=== PATIENT | male | born 1960 | race Caucasian/White ===

== ENCOUNTER 2020-11-24 08:23 | Emergency (ER) | payer BC, SELFPAY ==
[2020-11-24 09:06] VITALS: BP 132/86; PULSE 66; RESP 16; TEMP 36.7; O2SAT 97; BMI 24.4
--- NOTE | 2020-11-24 09:29 | ED_ITS ---
HPI - Back Pain/Injury General Chief Complaint: Back Pain/Injury Stated Complaint: BACK INJURY Time Seen by Provider: 11/24/20 09:06 History of Present Illness HPI Narrative: Patient is a 60-year-old male who presents here having back pain. The pain is sharp in nature shoots down the left leg. Worse over the great and 2nd toe. Patient has similar back pain in the past. But the pain is getting worse. Patient has some numbness in the toe as well. Patient claimed that is new in the last week and a half. No bowel urinary incontinence. No fever no chills. No history of IV drug use. The pain is sharp worse with certain movements. He is able to ambulate. Related Data Previous Rx's Medication Instructions Recorded ibuprofen 400 mg PO Q6H PRN #20 tab 11/24/20 methylprednisolone [Medrol (Mani)] 4 mg PO PER PKG DIR #21 ea 11/24/20 Allergies Allergy/AdvReac Type Severity Reaction Status Date / Time aspirin [Aspirin] Allergy Intermediate HIVES Unverified 07/25/20 15:39 From Percodan Allergy Intermediate HIVES Uncoded 07/25/20 15:39 Aspirin Allergy Unknown Uncoded 12/11/11 00:00 Review of Systems Review of Systems: Constitutional: No Weight loss, No Fever, No Chills, No Night Sweats, No Fatigue, No Malaise ENT/Mouth: No Hearing loss, No Ear Pain, No Nasal Congestion, No Sinus Pain, No Hoarseness, No sore throat, No Rhinorrhea, No Swallowing Difficulty Eyes: No Eye Pain, No Swelling, No Redness, No Foreign Body, No Discharge, No Vision Changes Cardiovascular: No Chest Pain, No SOB, No Dyspnea on Exertion, No Orthopnea, No Edema, No Palpitations Respiratory: No Cough, No Sputum, No Wheezing, No Smoke Exposure, No Dyspnea Gastrointestinal: No Nausea, No Vomiting, No Diarrhea, No Constipation, No abdominal Pain, No Hematochezia, No Melena Genitourinary: no irregular bleeding, No Dysuria, No Urinary Frequency, No Hematuria, No Urinary Incontinence, No Urgency, No Flank Pain, No Urinary Flow Changes, No Hesitancy Musculoskeletal: No joint pain, No Myalgias, No Joint Swelling Skin: No Skin Lesions, No rash Neuro: No Weakness, No Numbness, No Paresthesias, No Loss of Consciousness, No Dizziness, No Headache Psych: No Anxiety/Panic, No Depression, No SI/HI/AH/VH, No Social Issues, Heme/Lymph: No Bruising, No Bleeding,No Lymphadenopathy Endocrine: No Polyuria, No Polydipsia, No Temperature Intolerance [facility] Past Medical History Medical History (Updated 11/24/20 @ 11:28 by Nara Hendrix MD) Sciatica Surgical History H/O right knee surgery Social History Social History Alcohol intake: current Alcohol intake frequency: 3 or more drinks per day Alcohol type: beer Smoked in Last 30 Days: No Use of substances other than those prescribed or required for medical reasons: Yes Substance Use Type: Marijuana Substance Use Frequency: Daily Last Used Substance: Days (ago) Advance Directives: No Advance Directives Information Provided: Yes Physical Exam Vital Signs: Vital Signs: Last Vital Signs Temp 98.6 F 11/24/20 10:38 Pulse 65 11/24/20 10:38 Resp 14 11/24/20 10:38 BP 158/95 H 11/24/20 10:38 Pulse Ox 97 11/24/20 10:38 Body Mass Index 24.4 Appearance: Alert. Oriented X3. No acute distress. Eyes: Pupils equal, round and reactive to light. ENT: Pharynx normal. Neck: Normal inspection. Neck supple. No lymph nodes noted. No crepitus CVS: Normal heart rate and rhythm. Pulses normal. Normal S1 and S2 Respiratory: No respiratory distress. Breath sounds normal. No Wheezing. No rales Abdomen: Soft and nontender. No rigidity. No distention. good BS x4 Skin: Skin warm and dry. Normal skin color. Normal skin turgor. Extremities: No lower extremity edema. Neurovascular intact to all extremities. No Lacerations. No Rash Neuro: Oriented X 3. No motor deficit. No sensory deficit. Moving all extermities. No slurred speech Examination of the lower extremity there is good sensation of bilateral lower extremity. Reflexes are 2+ at patella. Pulses 2+ at dorsalis pedis. Sensation over the great toe over the lateral aspect and over the sole of the feet are all intact on both sides. Patient is able to ambulate with normal gait. Skins are intact. MDM - Back Pain/Injury MDM Narrative Medical decision making narrative: Patient well-appearing not acute distress. No bowel urinary incontinence. Patient has pain radiating down to the great toe. Can move the toe but feels tingling. Pain improved with medication. Will have patient follow-up on an outpatient basis. No evidence for cauda equina. Likely sciatica Lab Data Result diagrams: 11/24/20 10:03 11/24/20 10:03 Labs: Lab Results 11/24/20 11/24/20 Range/Units 10:03 10:03 WBC 5.9 (4.8-10.8) X10*3/uL RBC 5.03 (4.60-5.80) X10*6/uL Hgb 15.7 (14.0-18.0) g/dl Hct 46.8 (42-52) % MCV 93.0 (80-98) fL MCH 31.2 (27.0-33.0) pg MCHC 33.5 (31.0-36.0) g/dl RDW 12.0 (11.0-16.0) % Plt Count 257 (160-400) X10*3/uL MPV 8.5 L (9.4-12.4) fL Immature Gran % (Auto) 0.5 H (0.0-0.4) % Neut % (Auto) 62.6 (45-73) % Lymph % (Auto) 24.9 (20-40) % Banks % (Auto) 8.2 (2-11) % Eos % (Auto) 2.4 (0-4) % Baso % (Auto) 1.4 (0-2) % Lymph # (Auto) 1.5 (1.2-4.9) X10*3/uL Banks # (Auto) 0.5 (0.1-1.2) X10*3/uL Eos # (Auto) 0.1 (0.0-0.4) X10*3/uL Baso # (Auto) 0.1 (0.0-0.2) X10*3/uL Abs Immat Gran (auto) 0.03 (0.00-0.03) X10*3/uL Absolute Neuts (auto) 3.7 (2.0-8.3) X10*3/uL Absolute Nucleated RBC 0.000 (0.0-0.012) X10*3/uL Nucleated RBC % (auto) 0.0 (0.0-0.2) /100WBC Sodium 142 (135-145) mmol/L Potassium 4.4 (3.3-5.1) mmol/l Chloride 105 (96-108) mmol/L Carbon Dioxide 24 (22-29) mmol/L Anion Gap 17 (12-20) BUN 11 (9-16) mg/dL Creatinine 0.75 (0.5-1.4) mg/dL Estim Creat Clear Calc 119.8 Estimated GFR > 60 Random Glucose 92 (60-115) mg/dL Calcium 8.9 (8.4-10.2) mg/dL Discharge Plan Discharge Clinical Impression: Sciatica Patient Disposition: Home, Self-Care Instructions: Sciatica (ED) Prescriptions: New ibuprofen 400 mg tablet 400 mg PO Q6H PRN (Reason: pain) Qty: 20 RF: 0 methylprednisolone [Medrol (Mani)] 4 mg tablets,dose pack 4 mg PO PER PKG DIR Qty: 21 RF: 0 Referrals: Kimberlee Jamison MD [Primary Care Provider] - 2 days
[2020-11-24 10:08] LABS: MANUAL DIFF FLAG NO
[2020-11-24 10:17] LABS: Basophils Absolute Auto 0.1 X10*3/uL (0.0-0.2); Basophils Percent Auto 1.4 % (0-2); Eosinophils Absolute Auto 0.1 X10*3/uL (0.0-0.4); Eosinophils Percent Auto 2.4 % (0-4); Hematocrit 46.8 % (42-52); Hemoglobin 15.7 g/dl (14.0-18.0); Imm Gran Abs Auto 0.03 X10*3/uL (0.00-0.03); Imm Gran Pct Auto 0.5 % (0.0-0.4); Lymphocytes Absolute Auto 1.5 X10*3/uL (1.2-4.9); Lymphocytes Percent Auto 24.9 % (20-40); Mean Corpuscular HGB Conc 33.5 g/dl (31.0-36.0); Mean Corpuscular Hemoglobin 31.2 pg (27.0-33.0); Mean Platelet Volume 8.5 fL (9.4-12.4); Monocytes Absolute Auto 0.5 X10*3/uL (0.1-1.2); Monocytes Percent Auto 8.2 % (2-11); Neutrophils Absolute Auto 3.7 X10*3/uL (2.0-8.3); Neutrophils Percent Auto 62.6 % (45-73); Platelet Count 257 X10*3/uL (160-400); Red Blood Count 5.03 X10*6/uL (4.60-5.80); White Blood Count 5.9 X10*3/uL (4.8-10.8)
[2020-11-24] MEDS: ondansetron HCL 4 MG/2 ML VIAL IVPUSH (10:17)
[2020-11-24] MEDS: Ketorolac Tromethamine 15 MG/ML VIAL IV (10:19)
[2020-11-24] MEDS: HYDROmorphone HCl 0.5 MG/0.5 ML SYRINGE IVPUSH (10:21)
--- NOTE | 2020-11-24 10:25 | PC.NURSE ---
continues to c/o nausea, dr lawson updatede, medicated as ordered, pt now reports no longer nauseaous
[2020-11-24 10:38] VITALS: BP 158/95; PULSE 65; RESP 14; TEMP 37; O2SAT 97
[2020-11-24 10:39] LABS: Anion Gap 17 (12-20); Blood Urea Nitrogen 11 mg/dL (9-16); Calcium 8.9 mg/dL (8.4-10.2); Carbon Dioxide 24 mmol/L (22-29); Chloride 105 mmol/L (96-108); Creatinine Clr Calc Pharmacy 119.8; Estimated Glomerular Filt Rate > 60; Glucose Random 92 mg/dL (60-115); Potassium 4.4 mmol/l (3.3-5.1); Sodium 142 mmol/L (135-145)
--- NOTE | 2020-11-24 11:40 | PC.NURSE ---
patient calling for ride home, iv removed
== END 2020-11-24 11:58 | disposition home or self-care (01) ==
PROVIDERS: Emergency Provider Emergency Medicine Emergency Medical Services; PCP Internal Medicine
DX: M54.42 Lumbago with sciatica, left side (principal); M54.41 Lumbago with sciatica, right side; M79.605 Pain in left leg; Z79.899 Other long term (current) drug therapy
CPT/HCPCS: 36415; 80048; 85025; 96374; 96375; 99284; J1100; J1170; J1885; J2405

== ENCOUNTER 2022-11-20 09:28 | Emergency (ER) | payer BC, SELFPAY ==
--- NOTE | ~2022-11-20 | XR_ITS ---
EXAMINATION: XR SCAPULA, LEFT CLINICAL INFORMATION: Glenoid fracture. Assess for other injuries. COMPARISON: Left shoulder x-rays, the same day TECHNIQUE: AP and scapular Y views of the left scapula. FINDINGS: Again seen is irregularity of the inferior aspect of the glenoid consistent with a fracture. The body of the scapula is intact. The left glenohumeral and acromioclavicular joints are intact. Visualized left lung and ribs are normal. XR/XR scapula LT IMPRESSION: Inferior glenoid fracture again seen. The remainder of the body of the scapula appears intact.
--- NOTE | ~2022-11-20 | XR_ITS ---
EXAMINATION: XR SHOULDER, LEFT CLINICAL INFORMATION: Pain status post injury COMPARISON: 02/12/2013 TECHNIQUE: AP external rotation, Grashey, scapular Y, and axillary views of the left shoulder. FINDINGS: There is new abnormal irregularity of the inferior aspect of the left glenoid. Left clavicle intact. Left humerus intact. Visualized left lung and ribs are normal. XR/XR shoulder LT min 2V IMPRESSION: New abnormal irregularity of the left inferior glenoid consistent with an age indeterminate inferior glenoid fracture. No acute fracture of the visualized left proximal humerus.
--- NOTE | 2022-11-20 09:52 | ED_ITS ---
HPI - Extremity Injury (Upper) General Chief Complaint: Fall Stated Complaint: L Shoulder Pain Injury 11/19/22 Time Seen by Provider: 11/20/22 09:37 Source: patient Mode of arrival: ambulatory Limitations: no limitations History of Present Illness HPI narrative: 62-year-old male presents to the ER for evaluation of left shoulder pain after a mechanical fall last night. Patient states he was in his living room any tripped over the TV tray and fell onto his left shoulder. He has had pain and inability to abduct his left arm since. He did not sleep well last night due to the pain. He thinks he broke his shoulder. He reports a history of rotator cuff issues in the past. He states the pain is located on his outer and posterior portion of the shoulder. Pain does not radiate. It is worse with movement of the shoulder. He is able to move the elbow and wrist fine. Denies any numbness, weakness, tingling. No chest pain. MD complaint: injury to: left and shoulder Onset (ago): day(s) (1) Other Extremity Injury: left: shoulder Other injuries: none Place: home Severity: severe Severity scale (1-10): 9 Relieving factors: immobilization and rest Exacerbating factors: movement of extremity Context: fall Associated symptoms: denies other symptoms Related Data Previous Rx's Medication Instructions Recorded ibuprofen 400 mg tablet 400 mg PO Q6H PRN pain #20 tabs 11/24/20 methylprednisolone 4 mg tablets in 4 mg PO PER PKG DIR #21 ea 11/24/20 a dose pack (Medrol (Mani)) ibuprofen 600 mg tablet 600 mg PO Q8H PRN pain #20 tabs 11/20/22 Allergies Allergy/AdvReac Type Severity Reaction Status Date / Time aspirin [Aspirin] Allergy Intermediate HIVES Unverified 07/25/20 15:39 From Percodan Allergy Intermediate HIVES Uncoded 07/25/20 15:39 Aspirin Allergy Unknown Uncoded 12/11/11 00:00 Review of Systems Review of Systems: Yes all other systems are reviewed and are negative [facility] Past Medical History Medical History (Updated 11/20/22 @ 11:36 by JOSIANE Estrada) Sciatica Surgical History H/O right knee surgery Social History Social History Alcohol intake: current Alcohol intake frequency: 3 or more drinks per day Alcohol type: beer Substance Use Type: Marijuana Advance Directives: No Advance Directives Information Provided: No Physical Exam Vital Signs: Vital Signs: Last Vital Signs Temp 98.4 F 11/20/22 10:12 Pulse 72 11/20/22 10:12 Resp 14 11/20/22 10:12 BP 164/101 H 11/20/22 10:12 Pulse Ox 97 11/20/22 10:12 O2 Del Method 11/20/22 10:12 BMI result Body Mass Index 24.4 Appearance: Alert. Oriented X3. No acute distress. HEENT: normal inspection CVS: Normal heart rate and rhythm. Pulses normal. Respiratory: No respiratory distress. Skin: Skin warm and dry. Normal skin color. Normal skin turgor. No rashes. Extremities: Left arm held in flexion and adduction. Left shoulder with tenderness over the acromion, superior and lateral portion of the scapula. Limited ability to abduct the left arm forward and laterally due to pain. Normal range of motion of the elbow. Normal range of motion of the wrist. Nontender elbow when wrist. 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 No tenderness of the left clavicle. Neuro: Oriented X 3. No motor deficit. No sensory deficit. Course Course Course Narrative: 62-year-old male presents to the ER for evaluation of left shoulder pain status post fall. X-rays pending. Neurovascularly intact distally. Reevaluation(s) Reevaluation #1: XR showing New abnormal irregularity of the left inferior glenoid consistent wit h an age indeterminate inferior glenoid fracture. Dedicated scapular x-rays ordered. Doubt any intrathoracic injuries given mechanism. Hold off on CT scan of the chest for now. Case discussed with Dr. Morales Reevaluation #2: X-ray of the scapular showing again inferior glenoid fracture. No other scapular involvement. Mildred from Orthopedics was [place] texted, recommend immobilization with sling, follow-up in the office. Results and plan were discussed with patient. He will call Orthopedics office today to arrange outpatient follow-up. Stable for discharge home. Medical Decision Making Differential Diagnosis Differential Diagnoses: The differential diagnosis associated with the presentation includes clavicular fracture, rib fracture, scapular body fracture, scapular process fracture, dislocation, shoulder separation, and rotator cuff injury Consult Healthcare Provider Orthopedic YOEL Levy Independent Interpretation I performed an independent interpretation of an: Plain X-Ray Interpretation: inferior glenoid fx seen Radiology Impression Discussion of test interpretation with radiology: I have reviewed the radiologist's reading. Radiologist Impression: Shoulder XR - FINDINGS: There is new abnormal irregularity of the inferior aspect of the left glenoid. Left clavicle intact. Left humerus intact. Visualized left lung and ribs are normal.? XR/XR shoulder LT min 2V IMPRESSION: New abnormal irregularity of the left inferior glenoid consistent with an age indeterminate inferior glenoid fracture. No acute fracture of the visualized left proximal humerus. Scapular XR: FINDINGS: Again seen is irregularity of the inferior aspect of the glenoid consistent with a fracture. The body of the scapula is intact. The left glenohumeral and acromioclavicular joints are intact. Visualized left lung and ribs are normal.? XR/XR scapula LT IMPRESSION: Inferior glenoid fracture again seen. The remainder of the body of the scapula appears intact. Prescription Management I considered prescription management with: Pain Medication NSAID only for now, patient agrees, does not want narcotics Critical Care Time Critical Care Time Critical Care Time: No Discharge Plan Discharge Clinical Impression: Glenoid fracture of shoulder Patient Disposition: Home, Self-Care Instructions: Scapular Fracture (ED) Additional Instructions: Your x-ray today showed a inferior glenoid fracture. Management for this is immobilization with a sling. Wear this at all times except when bathing. You will need to be evaluated by Orthopedics. Call their office for an appointment. Prescriptions: New ibuprofen 600 mg tablet 600 mg PO Q8H PRN (Reason: pain) Qty: 20 0RF No Action ibuprofen 400 mg tablet 400 mg PO Q6H PRN (Reason: pain) Qty: 20 0RF methylprednisolone [Medrol (Mani)] 4 mg tablets,dose pack 4 mg PO PER PKG DIR Qty: 21 0RF Rx Instructions: One blister pack use as directed Referrals: [facility] [Provider Group] Stand Alone Forms: Work/School Release Interventions: ED Discharge Assessment Last Done: 11/20/22 11:41
[2022-11-20 10:12] VITALS: BP 164/101; PULSE 72; RESP 14; TEMP 36.9; O2SAT 97; BMI 24.4
== END 2022-11-20 11:46 | disposition home or self-care (01) ==
PROVIDERS: Emergency Provider Emergency Medicine
DX: S42.92XA Fracture of left shoulder girdle, part unspecified, initial encounter for closed fracture (principal); M25.512 Pain in left shoulder; W01.0XXA Fall on same level from slipping, tripping and stumbling without subsequent striking against object, initial encounter; Y93.9 Activity, unspecified; Y92.9 Unspecified place or not applicable; Y99.9 Unspecified external cause status; Z79.899 Other long term (current) drug therapy
CPT/HCPCS: 73010; 73030; 99283

== ENCOUNTER 2022-11-30 08:00 | Outpatient (REF) | payer BC, SELFPAY ==
--- NOTE | ~2022-11-30 | XR_ITS ---
EXAMINATION: XR wrist LT w scaphoid CLINICAL INFORMATION: Reason for Exam M25.532 - Pain in left wrist COMPARISON: None. TECHNIQUE: 4 views of the left wrist XR/XR wrist LT w scaphoid FINDINGS/IMPRESSION: * No acute fracture or dislocation. * Joint spaces are maintained without significant degenerative change. * No soft tissue abnormality.
--- NOTE | ~2022-11-30 | XR_ITS ---
EXAMINATION: XR SCAPULA, LEFT CLINICAL INFORMATION: Fracture COMPARISON: 11/20/2022 TECHNIQUE: AP and scapular Y views of the left scapula. FINDINGS: Redemonstration of fracture of the inferior aspect of the glenoid fossa. Body of the scapula appears intact. Visualized lungs and ribs are normal. XR/XR scapula LT IMPRESSION: Redemonstration of fracture of the inferior glenoid fossa.
== END 2022-11-30 08:01 | disposition home or self-care (01) ==
LOC: HO.HOSX 08:00
PROVIDERS: Visit Provider Physician Assistant
DX: S42.143A Displaced fracture of glenoid cavity of scapula, unspecified shoulder, initial encounter for closed fracture (principal); S42.153A Displaced fracture of neck of scapula, unspecified shoulder, initial encounter for closed fracture; M25.532 Pain in left wrist
CPT/HCPCS: 73010; 73110

== ENCOUNTER 2022-12-15 07:22 | Outpatient (REF) | payer BC, SELFPAY ==
--- NOTE | ~2022-12-15 | CT_ITS ---
EXAMINATION: CT SHOULDER WITHOUT CONTRAST, LEFT CLINICAL INFORMATION: Glenoid cavity of scapular fracture. COMPARISON: Multiple priors, most recent left scapular radiographs dated 11/30/2022. TECHNIQUE: Contiguous axial CT images of the left shoulder were obtained without contrast. Sagittal and coronal reformats were provided and reviewed. This CT examination was performed using dose optimization techniques as appropriate, variously including the following: *Automated exposure control *Adjustment of mA and/or kV according to patient size (this includes techniques or standardized protocols for targeted exams where dose is matched to indication/reason for exam; i.e. extremities or head) *Use of iterative reconstruction technique. DOSE: 303 mGy-cm FINDINGS: There is a mildly displaced fracture along the anteroinferior and inferior glenoid with the dominant fracture fragment measuring up to 2.6 cm in AP dimension. There are tiny fracture fragments along the periphery of the fracture line. The resultant fracture gap which contacts the glenoid articular surface measures up to 0.5 cm with cortical step-off/medial displacement of the distal fracture fragment measuring up to 0.3 cm. No additional fracture or dislocation. Humeral head currently well seated within the glenoid. [id number] glenohumeral joint space narrowing with tiny marginal osteophytes. Degenerative cystic change at the superior aspect of the humeral head/greater tuberosity. No concerning lytic or blastic osseous lesion. Partially visualized degenerative disc disease and facet arthropathy within the cervical spine. Moderate left shoulder joint effusion. No abnormal soft tissue mass or fluid collection. No axillary lymphadenopathy. Evaluation of the rotator cuff tendons is significantly limited on CT examination, however, they appear grossly intact. The visualized left lung is clear. CT/CT shoulder LT wo IV con IMPRESSION: 1. Mildly displaced fracture along the anteroinferior and inferior glenoid with the dominant fracture fragment measuring up to 2.6 cm in AP dimension. Tiny fracture fragments along the periphery of the fracture line. The resultant fracture gap which contacts the glenoid articular surface measures up to 0.5 cm with cortical step-off/medial displacement of the distal fracture fragment measuring up to 0.3 cm. 2. [id number] glenohumeral osteoarthritis. Moderate joint effusion. 3. Partially visualized degenerative disc disease and facet arthropathy within the cervical spine.
== END 2022-12-15 07:23 | disposition home or self-care (01) ==
LOC: HO.CT 07:22
PROVIDERS: Visit Provider Physician Assistant
DX: S42.143A Displaced fracture of glenoid cavity of scapula, unspecified shoulder, initial encounter for closed fracture (principal); S42.153A Displaced fracture of neck of scapula, unspecified shoulder, initial encounter for closed fracture
CPT/HCPCS: 73200

== ENCOUNTER → 2022-12-24 10:25 | Outpatient (BNVA) | payer BC, SELFPAY | PROVIDERS: Visit Provider Physician Assistant | DX: Z13.89 Encounter for screening for other disorder (principal) ==

== ENCOUNTER 2023-01-19 11:41 | Day surgery (SDC) | payer BC, SELFPAY ==
--- NOTE | 2023-01-18 10:06 | P.CONAN_ITS ---
Documented by User: Graciela Bryant NP 01/18/23 10:07 HPI - Anesthesia Eval Consult details Narrative: 63yo M for Left ORIF Shoulder,later jet PMFSH Active Problems Active Problems: All Active Problems (Updated 01/07/23 @ 14:23 by Dione Tran RN) Glenoid fracture of shoulder (Acute) CMC arthritis (Acute) Sciatica (Acute) Past Medical History Medical History (Updated 01/07/23 @ 14:23 by Dione Tran RN) Daily consumption of alcohol No pertinent past medical history Sciatica Surgical History Surgical History (Updated 01/07/23 @ 14:21 by Dione Tran RN) H/O right knee surgery History of umbilical hernia repair Social History Social History Are you a primary administrator health care facility to a significant other at home: No Do you presently have visiting nurse or other home services: No Alcohol intake: current Alcohol intake frequency: 3 or more drinks per day Alcohol type: beer Patient Tobacco Use Status: Former Tobacco user Quit Date: Age 20 Tobacco use type: Cigarette Use of substances other than those prescribed or required for medical reasons: Yes Substance Use Type: Marijuana Substance Use Frequency: Occasionally Have you been hit, kicked, punched, or otherwise hurt by someone within the past year? 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 Functional status greater than 4 mets . Intermittent PVC in the pre op but patient completely asymtomatic Drinks ETOH , 2-3 beers everyday PMFSH Past Medical History Medical History (Updated 01/07/23 @ 14:23 by Dione Tran, RN) Daily consumption of alcohol No pertinent past medical history Sciatica Functional capacity: independent ambulation Family History Family history of problems with anesthesia: No Surgical History Surgical History (Updated 01/07/23 @ 14:21 by Dione Tran RN) H/O right knee surgery History of umbilical hernia repair History of Problems with Anesthesia: No Social History Social History Are you a primary administrator health care facility to a significant other at home: No Do you presently have visiting nurse or other home services: No Alcohol intake: current Alcohol intake frequency: 3 or more drinks per day Alcohol type: beer Patient Tobacco Use Status: Former Tobacco user Quit Date: Age 20 Tobacco use type: Cigarette Use of substances other than those prescribed or required for medical reasons: Yes Substance Use Type: Marijuana Substance Use Frequency: Occasionally Have you been hit, kicked, punched, or otherwise hurt by someone within the past year? 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 Rate : 078 BPM ? ? Atrial Rate : 078 BPM ?? P-R Int : 158 ms? QRS Dur : 084 ms ? ? QT Int : 364 ms ? ? ? P-R-T Axes : 045 022 034 degrees ?? QTc Int : 414 ms ? Normal sinus rhythm Normal ECG No previous ECGs available Airway Mallampati Class: III TM Dist: >3cm Neck ROM: Full Loose/Missing/Broken Teeth: Yes Heart: S1,S2 Lungs: s/l breath sounds Assessment and Plan Assessment Anesthesia Assessment: Anesthesia Plan Discussed Final Anesthetic Review Family History of Problems with Anesthesia: No History of Problems with Anesthesia: No NPO: Yes ASA Class: III Final Preanesthetic Review: Meds/Allgs Chart Reviewed, Consent Obtained/Reviewed and Anes Risks/Benef Reviewed Patient Risk: Intermediate Procedure Risk: Intermediate Anesthetic Plan Anesthetic Plan: GA and Regional Block Disposition: Standard PACU
[2023-01-19] VITALS (7 sets, daily range): BP systolic 142–170; BP diastolic 90–97; PULSE 67–78; RESP 15–18; TEMP 36.2–37; O2SAT 96–98; BMI 24.4
--- NOTE | 2023-01-19 | ECG_ITS ---
Test Reason : PRE OP Blood Pressure : / mmHG Vent. Rate : 078 BPM Atrial Rate : 078 BPM P-R Int : 158 ms QRS Dur : 084 ms QT Int : 364 ms P-R-T Axes : 045 022 034 degrees QTc Int : 414 ms Normal sinus rhythm Normal ECG No previous ECGs available Referred By: Graciela Bryant Electronically Signed By:Allan Lezama
[2023-01-19 12:50] LABS: Hematocrit 46.9 % (42.0-52.0); Mean Corpuscular HGB Conc 34.1 g/dl (31.0-36.0); Mean Corpuscular Hemoglobin 31.4 pg (27.0-33.0); Mean Platelet Volume 8.7 fL (9.4-12.4); Platelet Count 229 X10*3/uL (160-400); Red Cell Distribution Width 12.6 % (11.0-16.0); White Blood Count 6.9 X10*3/uL (4.8-10.8)
[2023-01-19] MEDS: Lactated Ringers 1,000 ML 100 ML IVCONT (13:00)
--- NOTE | 2023-01-19 13:02 | PC.NURSE ---
reported to Dr. Shine Anesthesoilogist periods of quadrageminy, pt denies chest pain, sob, light headedness or sob/palpitations.. 12 lead ekg (ordered upon arrival) nsr. Pt noted to state extreme anxiety/restless legs syndrome evident with frequent leg movements. anxiety settled after IV completion without incident, first stick.
[2023-01-19 13:07] LABS: Anion Gap 13 (12-20); Blood Urea Nitrogen 10 mg/dL (9-16); Calcium 8.9 mg/dL (8.4-10.2); Carbon Dioxide 27 mmol/L (22-29); Chloride 106 mmol/L (96-108); Creatinine Clr Calc Pharmacy 106.4; Estimated Glomerular Filt Rate > 60; Glucose Fasting 115 mg/dL (60-99); Potassium 4.1 mmol/L (3.3-5.1); Sodium 142 mmol/L (135-145)
--- NOTE | 2023-01-19 15:08 | MHC.SHP ---
Pre-Procedural Eval Section A Date of Service: 01/19/23 The patient is an INPATIENT: No Changes since office visit: No Cold of Flu in the past 2 weeks, No New Medical Problems, No Changes in Medication and No Patient answered all questions The History & Physical has been completed within 30 days and I have reviewed it.: Yes Section B Chief Complaint: Displaced fracture of glenoid cavity of scapula Allergies: Allergies Allergy/AdvReac Type Severity Reaction Status Date / Time No Known Allergies Allergy Verified 12/24/22 10:33 Plan I have reviewed the history and physical and performed a pertinent physical examination on my patient. No changes have occurred unless specified. Time Spent With Patient Time: Total time managing care of this patient today ____ minutes.
--- NOTE | 2023-01-19 18:17 | P.BOP_ITS ---
Brief Operative Note Date of Service: 01/19/23 Pre-op diagnosis: Left shoulder instability and glenoid fracture Post-op diagnosis: same Procedure: Arthroscopic bony bankhart repair with capsular plication Implants: Rhoades and Nephew Microraptor x 3 Surgeon: Adi Negron MD Anesthesia: GETA and regional Was an Pupil Personnel Services Director used for this Procedure?: Yes Pupil Personnel Services Director: Jyotsna Teresa Estimated blood loss (mL): 20 IV fluids (mL): 1,500 Pathology: none sent Condition: stable Disposition: PACU
[2023-01-19] MEDS: oxyCODONE HCl Immed Release 5 MG TABLET PO (18:31)
[2023-01-19] MEDS: fentaNYL citrate/PF 100 MCG/2 ML VIAL 25 MCG IVPUSH (18:39)
[2023-01-19 18:52] LABS: Glucose, Whole Blood 113 mg/dL (60-115)
[2023-01-19] MEDS: Ketorolac Tromethamine 30 MG/ML VIAL IVPUSH (18:57)
--- NOTE | 2023-01-22 15:33 | W.PM.OPN ---
Operative Note Operative Note Date of Service: 01/19/23 Narrative: Date of Service: 01/19/23 Pre-op diagnosis: Left shoulder instability and glenoid fracture Post-op diagnosis: same Procedure: Arthroscopic bony bankhart repair with capsular plication Implants: Rhoades and Nephew Microraptor x 3 Surgeon: Adi Negron MD Anesthesia: GETA and regional Was an And Drying Supervisor Cooking Casing used for this Procedure?: Yes And Drying Supervisor Cooking Casing: Jyotsna Teresa Estimated blood loss (mL): 20 IV fluids (mL): 1,500 Pathology: none sent Condition: stable Disposition: PACU Procedure in detail: Patient was brought to the operating room and placed the the beach chair position. All bony prominences were well padded and the limb was prepped and draped in standard sterile fashion. A time out was called to identify proper site, proper procedure and proper surgeon. IV antibiotics per weight were administered. I began by making a posterolateral stab incision with a 15 blade. A blunt trochar was placed into the glenohumeral joint and I insufflated the joint with saline and a 30 degree arthroscope was placed. I established an outside- in anterior portal just distal to the biceps tendon. I then began my inspection of the glenohumeral joint. The biceps was intact. There was G4 changes of the posterior 50 % of the HH and the anterior 50% of the glenoid. There was a partially healed glenoid rim fracture with the anterior fragment depressed and the labrum grossly intact. The subscapularis was intact and there was a PASTA lesion. I then used an arthroscopic [place] to free the torn glenoid fragment and then I used 6 suture tapes along the anterior capsule and labrum to reapproximate the anterior glenoid rim. These sutures were placed from 7 to 10 O:clock position and then broughjt to three micro-raptor anchors at the anterior glenoid rim. Prior to this I debrided the anterior rim down to bleeding bone. The construct provided an anterior bumper and there was a negative drive through sign. I debrided the labrum circumferentially and the PASTA lesion but repair was not indicated given his OA and the partial nature of the injury. I debrdied the loose cartilage of the glenoid humeral head. Once I was satisfied with the repair final images were captured and I removed all instrumentation. Portals were closed with nylon. Patient was placed in an abduction sling, extubated and brought to the recovery room in stable condition. There were no known complications.
== END 2023-01-19 19:24 | disposition home or self-care (01) ==
PROVIDERS: Nurse Practitioner; Visit Provider Orthopaedic Surgery
PROC: (CPT 29806; principal; 2023-01-19 14:20)
DX: S42.142A Displaced fracture of glenoid cavity of scapula, left shoulder, initial encounter for closed fracture (principal); S42.152A Displaced fracture of neck of scapula, left shoulder, initial encounter for closed fracture; M25.312 Other instability, left shoulder; M19.042 Primary osteoarthritis, left hand; M25.532 Pain in left wrist; W01.0XXA Fall on same level from slipping, tripping and stumbling without subsequent striking against object, initial encounter; Y93.9 Activity, unspecified; Y92.9 Unspecified place or not applicable; Y99.8 Other external cause status; G57.00 Lesion of sciatic nerve, unspecified lower limb; Z79.1 Long term (current) use of non-steroidal anti-inflammatories (NSAID); F10.10 Alcohol abuse, uncomplicated; F12.90 Cannabis use, unspecified, uncomplicated; Z87.891 Personal history of nicotine dependence
CPT/HCPCS: 29806; 36415; 80048; 82947; 85027; 93005; J0131; J0171; J0690; J1885; J2250; J2405; J2795; J3010

== ENCOUNTER → 2023-02-01 08:48 | Outpatient (BNVA) | payer BC, SELFPAY | PROVIDERS: Visit Provider Physician Assistant | DX: Z13.89 Encounter for screening for other disorder (principal) ==

== ENCOUNTER → 2023-03-03 07:58 | Outpatient (BNVA) | payer BC, SELFPAY | PROVIDERS: Visit Provider Physician Assistant | DX: Z13.89 Encounter for screening for other disorder (principal) ==

== ENCOUNTER → 2023-04-16 08:36 | Outpatient (BNVA) | payer BC, SELFPAY | PROVIDERS: Visit Provider Orthopaedic Surgery ==

== ENCOUNTER 2023-05-04 09:00 | Outpatient (RCR) | payer BC, SELFPAY ==
--- NOTE | 2023-04-16 08:10 | MHC.PT.PR ---
[facility] [place] Office [place] Office [place] Office [address] Samira Grey [address] [phone] F: [phone] F: [phone] F: [phone] F: [phone] Physical Therapy Progress Note Diagnosis: S/P SUMI BANKHART REPAIR WITH CAPSULAR PLICATION Date of Surgery: 01/18/23 Date of Evaluation: 02/01/23 Treatments to Date: 19 Cancellations to Date: 0 No Shows to Date: 0 Subjective: It still feels unstable and is painful. Pain Score and Location: 5 LEFT SHOULDER Objective Measures: 04/16 PROM shoulder flexion 107, abd 70, ER 38 AAROM flexion 102, ER 36 Assessment: Pt able to perform LUE exercises with some shakiness and weakness. He had less shakiness with supine shoulder flexion than previous visits however still will get some pain located along infraspinatus and supraspinatus. He has made gradual progress mostly limited by significant weakness and instability. He does show compliance with HEP as he demonstrates good carryover with exercises. He has a f/u with ortho today and advised pt to discuss his ongoing concerns of pain, weakness, instability with them. PT Plan: Continue with PT Frequency and Duration: The patient will be seen 2 X WEEK FOR 4 MORE WEEKS Treatment Plan: Therapeutic Exercise Dynamic Therapeutic Activities Neuromuscular Re-ed Manual Therapies Taping Home Exercise Program Patient Education Electrical Stimulation Hot or Cold Pack Reviewed/ Agreed with Student Documentation: Yes Therapist: Tanvi Wesley Thank you once again for your referral.
--- NOTE | 2023-06-15 12:59 | MHC.PT.DC ---
[facility] [place] Office [place] Office [place] Office [address] Samira Grey [address] [phone] F: [phone] F: [phone] F: [phone] F: [phone] Physical Therapy Discharge Report Diagnosis: S/P SUMI BANKHART REPAIR WITH CAPSULAR PLICATION Date of Surgery: 01/18/23 Date of Evaluation: 02/01/23 Date of Discharge: 06/15/23 Treatments to Date: Cancellations to Date: 0 No Shows to Date: 0 Discharge Status: Independent with HEP Patient Elected to Stop Recommend MD Follow-up Discharge Summary: Pt did not f/u with final visits and is therefore d/c. He continued to demonstrate poor scapular/ RTC strength resulting in poor shoulder AROM against gravity and decreased functional mobility. He was I with HEP. Pt was educated on precautions of instability and f/u with surgeon regarding continued instability and decreased strength Electronically signed by: Tanvi Wesley PT Please sign and return to therapist. Thank you for your referral.
== END 2023-06-15 12:59 | disposition home or self-care (01) ==
LOC: HO.PTCHIC 09:00
PROVIDERS: Visit Provider Physician Assistant
DX: M25.312 Other instability, left shoulder (principal)
CPT/HCPCS: 97014; 97110; 97140; 97161

== ENCOUNTER 2023-06-04 10:34 | Outpatient (AMB) | payer BC, SELFPAY ==
[2023-06-04 10:39] VITALS: BMI 23.7
--- NOTE | 2023-06-04 10:39 | A.OFFVIS_ITS ---
Intake Vital Signs 06/04/23 10:39 Height 6 ft Weight 175 lb BMI 23.7 Intake Visit Reasons: OV-s/p Lt shldr capsular plication 01/19/23 Intake Note: Warren 63 year old right hand dominant male who presents today for a follow up visit s/p Left shldr capsular plication 01/19/23. States he has D/C his sling, cont's to have ongoing pain, cont's to work with P.T. Patient would like to discuss what is the next step. Allergies No Known Allergies Allergy (Verified 06/04/23 10:41) HPI OV-s/p Lt shldr capsular plication 01/19/23 HPI Details 63-year-old right hand dominant male who returns to the office today for a follow-up of left shoulder capsular plication, 01/19/23. He continues to have ongoing pain in his shoulder and he is working with physical therapy for his pain. He states he has discontinued wearing his sling. He would like to discuss the next step in his treatment. [facility] Medical History Daily consumption of alcohol No pertinent past medical history Sciatica Surgical History H/O right knee surgery History of umbilical hernia repair Social History Are you a primary ambulatory care nurse to a significant other at home: No Do you presently have visiting nurse or other home services: No Alcohol intake: current Alcohol intake frequency: 3 or more drinks per day Alcohol type: beer Patient Tobacco Use Status: Former Tobacco user Quit Date: Age 20 Tobacco use type: Cigarette Substance Use Type: Marijuana Current occupational status: employed 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 Incision well healed. AROM FF 110. ER to 45. IR to back pocket . He has good function of elbow and wrist. He can move all of the digits. NVI. Assessment & Plan Assessment & Plan (1) Glenoid fracture of shoulder: Code(s): S42.143A - Displaced fracture of glenoid cavity of scapula, unspecified shoulder, initial encounter for closed fracture; S42.153A - Displaced fracture of neck of scapula, unspecified shoulder, initial encounter for closed fracture (2) Instability of left shoulder joint: Code(s): M25.312 - Other instability, left shoulder Plan We had a discussion about the potential next step in his treatment if he continues to have discomfort and limitations with activities or continued instability which would be TSA. I did explain that this is reserved for patient who have severe limitations in their functional capacity and also pain. The patient states that he is able to perform activity with minimal pain and he is no longer feeling the sensation of instability. He will continue working on his physical therapy exercises to maintain his motion and regain some more strength. He will remain out of work till we see him back in [address] Negron, sooner if needed. Patient Instructions: Scribed for Jyotsna Teresa PA-C, by Easton Giordano biomedical engineering director, on 06/04/2023 at 10:15 AM ELVIN. Jyotsna Ansari PA-C, have personally reviewed and agree with the information entered by the scribe. Coding Level of Care Code Est Pt Level 3 (07422) Diagnoses Glenoid fracture of shoulder S42.143A; S42.153A Instability of left shoulder joint M25.312
== END 2023-06-04 11:15 | disposition home or self-care (01) ==
PROVIDERS: Visit Provider Physician Assistant
DX: S42.143A Displaced fracture of glenoid cavity of scapula, unspecified shoulder, initial encounter for closed fracture (principal); S42.153A Displaced fracture of neck of scapula, unspecified shoulder, initial encounter for closed fracture; M25.312 Other instability, left shoulder
CPT/HCPCS: 99213

== ENCOUNTER → 2023-06-04 10:34 | Outpatient (BNVA) | payer BC, SELFPAY | PROVIDERS: Visit Provider Physician Assistant ==

== ENCOUNTER 2023-07-19 10:13 | Outpatient (AMB) | payer SELFPAY ==
--- NOTE | 2023-07-19 10:15 | A.OFFVIS_ITS ---
Intake Intake Visit Reasons: OV- left cap plication 03/2023-F/U Intake Note: This is a 63 year old male patient who presents for S/P left shoulder capsular plication, DOS: 01/19/23. He reports that he finished physical therapy and continues to have limited range of motion Allergies No Known Allergies Allergy (Verified 07/19/23 10:19) Medication List - Last Reconciled 07/19/23 by Iraida Davis RN oxycodone-acetaminophen 5-325 mg (Percocet) 1 tab PO Q8H PRN 7 days HPI OV- left cap plication 03/2023-F/U HPI Details This is a 63 year old male patient who presents S/P left shoulder capsular plication, DOS: 01/19/23. He reports that he finished physical therapy and continues to have limited range of motion. He has not had any further dislocations. He has severe osteoarthritis of the left shoulder. 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 daily [facility] Medical History Daily consumption of alcohol No pertinent past medical history Sciatica Surgical History H/O right knee surgery History of umbilical hernia repair Social History Are you a primary neonatal critical care nurse to a significant other at home: No Do you presently have visiting nurse or other home services: No Alcohol intake: current Alcohol intake frequency: 3 or more drinks per day Alcohol type: beer Patient Tobacco Use Status: Former Tobacco user Quit Date: Age 20 Tobacco use type: Cigarette Substance Use Type: Marijuana Current occupational status: employed 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 Abduction 80. Forward flexion 110. Internal rotation hip pocket. Well-healed portals. Assessment & Plan Assessment & Plan (1) Instability of left shoulder joint: Code(s): M25.312 - Other instability, left shoulder Plan: This is a 63-year-old with osteoarthritis of the shoulder is he underwent a capsular plication and debridement which has helped him both with pain and with no further dislocations. This is a difficult situation. I do not think a shoulder replacement would allow him to continue to work with heavy lifting although it does not seem like he is really able to do heavy lifting at this point. He is considering job change/shelter think this probably would be best to do prior to any further surgical intervention. He agrees and will let me know what I can do for him in the future. Injections are reasonable but he is not having that much pain. His primary problem is loss range motion. (2) Osteoarthritis of left shoulder: Code(s): M19.012 - Primary osteoarthritis, left shoulder Coding Level of Care Code Est Pt Level 4 (32992) Diagnoses Instability of left shoulder joint M25.312 Osteoarthritis of left shoulder M19.012
== END 2023-07-19 10:38 | disposition home or self-care (01) ==
PROVIDERS: Visit Provider Orthopaedic Surgery
DX: M25.312 Other instability, left shoulder (principal); M19.012 Primary osteoarthritis, left shoulder
CPT/HCPCS: 99214

== ENCOUNTER → 2023-07-19 10:13 | Outpatient (BNVA) | payer BC, SELFPAY | PROVIDERS: Visit Provider Orthopaedic Surgery ==

== ENCOUNTER 2023-12-16 09:19 | Inpatient (IN) | payer BC, SELFPAY ==
[2023-12-16] VITALS (13 sets, daily range): BP systolic 87–138; BP diastolic 59–112; PULSE 93–135; RESP 16–18; TEMP 35.7–37.1; O2SAT 96–99; BMI 24.4; BMI 26.0
--- NOTE | ~2023-12-16 | CT_ITS ---
EXAMINATION: CT ABDOMEN AND PELVIS WITH CONTRAST CLINICAL INFORMATION: Elevated bilirubin and abdominal pain COMPARISON: 10/28/2019 TECHNIQUE: Multidetector volumetric images were obtained from the superior aspect of the liver through the pubic symphysis following administration 85 mL of Omnipaque 350 intravenous contrast. Sagittal and coronal reformatted images were obtained on the technologist's workstation. Oral contrast: No This CT examination was performed using dose optimization techniques as appropriate, variously including the following: *Automated exposure control *Adjustment of mA and/or kV according to patient size (this includes techniques or standardized protocols for targeted exams where dose is matched to indication/reason for exam; i.e. extremities or head) *Use of iterative reconstruction technique DLP: 482 mGy-cm for the initial injection and 420mGy-cm for the repeat injection FINDINGS: LUNG BASES: The visualized lung bases are unremarkable. LIVER, GALLBLADDER, AND BILIARY TREE: There is hemangioma in the left lobe of the liver visualized on initial injection, measured 1.5 x 1.3 cm. The rest of liver is homogeneous without masses or ductal dilatation. Gallbladder well distended with small amount of high attenuation material most likely polyps and single stone. CBD is nondilated Correlate with right upper quadrant ultrasound PANCREAS: Unremarkable. SPLEEN: Spleen is enlarged measured 13.9 cm ADRENAL GLANDS: Unremarkable. KIDNEYS AND URETERS: The kidneys are normal in size, shape, and attenuation. No hydronephrosis, hydroureter, or calculi seen. No perinephric stranding. BLADDER: Unremarkable. GASTROINTESTINAL TRACT: The small and large bowel are unremarkable. The appendix is unremarkable. There are changes of diverticulosis but no diverticulitis. ABDOMINAL WALL: No significant hernia is appreciated. LYMPH NODES: Normal. VASCULAR: Unremarkable. PELVIC VISCERA: Unremarkable. OSSEOUS STRUCTURES: There are degenerative changes in lower lumbar spine but no fractures seen. There is levoscoliosis of lumbar spine CT/CT abdomen pelvis w IV con IMPRESSION: 1. Splenomegaly. 2. Cholelithiasis and gallbladder polyps. Correlate with right upper quadrant ultrasound. 3. Diverticulosis without diverticulitis. 4. Hemangioma in the left lobe of the liver. Fleischner guidelines were followed.
--- NOTE | ~2023-12-16 | US_ITS ---
EXAMINATION: US ABDOMEN LIMITED CLINICAL INFORMATION: Right upper quadrant abdominal pain. COMPARISON: CT scan from 12/16/2023 and 10/28/2019 TECHNIQUE: Real-time imaging of the right upper quadrant abdominal viscera. FINDINGS: PANCREAS: Obscured by overlying bowel gas LIVER: The liver is normal in size. The liver contour is normal. Parenchymal echogenicity is normal. There is a hypoechoic lesion within the left lobe measuring 1.8 x 1.3 x 1.8 cm which on the prior CT scan was consistent with a hemangioma. No significant change given differences in technique. There is no intrahepatic biliary duct dilatation seen. GALLBLADDER: Normal. The gallbladder is physiologically distended without evidence of stones, sludge, polyps, wall thickening or pericholecystic fluid. COMMON BILE DUCT: Normal in caliber measuring 0.3 cm in diameter. RIGHT KIDNEY: Normal. No hydronephrosis. No renal calculi or focal parenchymal lesions. The kidney measures 11.1 cm in maximum dimension. FREE FLUID: None. US/US abdomen limited IMPRESSION: No acute process
--- NOTE | ~2023-12-16 | XR_ITS ---
EXAMINATION: XR CHEST CLINICAL INFORMATION: Shortness of breath, URI symptoms COMPARISON: Chest 02/12/2013 TECHNIQUE: Frontal view of the chest was obtained. FINDINGS: No significant abnormality is noted involving the heart, lungs, mediastinum, bony thorax or soft tissues. XR/XR chest 1V IMPRESSION: No acute cardiopulmonary disease.
[2023-12-16 09:54] LABS: COVID-19 Test Negative (Negative); IDNOW Serial# 08D9AD1C
[2023-12-16 09:54] LABS: Basophils Absolute Auto 0.1 X10*3/uL (0.0-0.2); Basophils Percent Auto 0.7 % (0-2); Eosinophils Percent Auto 0.4 % (0-4); Hematocrit 53.1 % (42.0-52.0); Hemoglobin 18.2 g/dl (14.0-18.0); Imm Gran Abs Auto 0.01 X10*3/uL (0.00-0.03); Imm Gran Pct Auto 0.1 % (0.0-0.4); Lymphocytes Absolute Auto 1.2 X10*3/uL (1.2-4.9); Lymphocytes Percent Auto 17.1 % (20-40); MANUAL DIFF FLAG NO; Mean Corpuscular HGB Conc 34.3 g/dl (31.0-36.0); Mean Corpuscular Hemoglobin 31.1 pg (27.0-33.0); Mean Corpuscular Volume 90.8 fL (80.0-98.0); Mean Platelet Volume 9.5 fL (9.4-12.4); Monocytes Absolute Auto 0.7 X10*3/uL (0.1-1.2); Monocytes Percent Auto 9.8 % (2-11); Neutrophils Percent Auto 71.9 % (45-73); Platelet Count 201 X10*3/uL (160-400); Red Blood Count 5.85 X10*6/uL (4.60-5.80); Red Cell Distribution Width 12.8 % (11.0-16.0); White Blood Count 6.9 X10*3/uL (4.8-10.8)
[2023-12-16 10:00] LABS: IDNOW Serial# 152EDE1D; Influenza A Negative (Negative); Influenza B2 Negative (Negative)
[2023-12-16 10:21] LABS: Alanine Aminotransferase 31 U/L (0-40); Albumin Level 4.3 g/dL (3.5-5.0); Alkaline Phosphatase 52 U/L (39-117); Anion Gap 19 (12-20); Aspartate Amino Transferase 44 U/L (5-37); Bilirubin Direct 0.9 mg/dL (0.0-0.5); Bilirubin Total 2.9 mg/dL (0.0-1.0); Blood Urea Nitrogen 12 mg/dL (9-16); Calcium 9.8 mg/dL (8.4-10.2); Carbon Dioxide 23 mmol/L (22-29); Chloride 99 mmol/L (96-108); Creatinine Clr Calc Pharmacy 74.3; Estimated Glomerular Filt Rate > 60; Glucose Random 136 mg/dL (60-115); Lipase 32 U/L (8-78); Potassium 4.1 mmol/L (3.3-5.1); Sodium 137 mmol/L (135-145)
--- NOTE | 2023-12-16 10:25 | PC.NURSE ---
sandeep cheema at bedside completing ortho vs. stated pt positive orthos.
--- NOTE | 2023-12-16 10:26 | ED_ITS ---
HPI - General Adult General Chief complaint: General Medical Stated complaint: cold like symptoms Time Seen by Provider: 12/16/23 09:57 Source: patient Mode of arrival: ambulatory Limitations: no limitations History of Present Illness HPI narrative: 63-year-old male with no significant medical history presents to the emergency department for evaluation of fatigue, malaise, myalgias, dizziness with positional changes, nausea, vomiting, diarrhea, abdominal discomfort diffuse in nature, dark/orange urine all this has been going on since Wednesday. Patient reports he has been lying on the couch since then not getting up much. Not eating or drinking. Only drinking water. He tells me he is never felt this way before. Denies chest pain, shortness of breath, headache, vision changes. No known sick contacts Patient drinks alot of beer on the weekend Related Data Home Medications Medication Instructions Recorded Confirmed No Known Home Meds 12/16/23 12/16/23 Allergies Allergy/AdvReac Type Severity Reaction Status Date / Time No Known Allergies Allergy Verified 07/19/23 10:19 Review of Systems 2 Review of Systems: Yes all other systems are reviewed and are negative [facility] Past Medical History Attestation statement: The following information was validated with the patient. Source: old records reviewed and nursing notes reviewed Medical History Daily consumption of alcohol No pertinent past medical history Sciatica Surgical History History of umbilical hernia repair H/O right knee surgery Social History Social History Are you a primary long term care social worker to a significant other at home: No Do you presently have visiting nurse or other home services: No Alcohol intake: current Alcohol intake frequency: 3 or more drinks per day Alcohol type: beer Patient Tobacco Use Status: Former Tobacco user Quit Date: Age 20 Tobacco use type: Cigarette Substance Use Type: Marijuana Advance Directives: No Current occupational status: employed 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, 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4 Patient initially hypertensive. Later on orthostatic vital signs were done he is having positive orthostatic vitals Appearance: Alert.? Oriented X3.? No acute distress.? Head: Normocephalic, atraumatic, no step-offs or deformities Eyes: Pupils equal, round and reactive to light.? Neck: Normal inspection.? Neck supple.? CVS: Normal heart rate and rhythm.? Pulses normal.? Respiratory: No respiratory distress.? Breath sounds normal.? Abdomen: Soft and diffusely tender abdomen.? Skin: Skin warm and dry.? Normal skin color.? Normal skin turgor.? Extremities: No lower extremity edema.? No calf ttp. 5/5 strength to bilateral upper and lower extremities Neuro: Oriented X 3.? No motor deficit.? No sensory deficit. CN 2-12 intact Course Reevaluation(s) Reevaluation #1: I did orthostatic vital on this patient lying blood pressure was 120/84, reporting dizziness when he sat up he got even more dizzy in his blood pressure 94/74. Time: 10:30 Reevaluation #2: CBC with elevated hemoglobin and hematocrit hemoconcentration likely secondary to poor p.o. intake/dehydration. Patient also noted to have a BUN and creatinine that is higher than usual likely secondary to poor p.o. intake/dehydration. Total bilirubin 2.9. Will rule out intra-abdominal etiology as patient is complaining of abdominal pain but this also could be secondary to dehydration/viral illness. Normal lipase. COVID, flu negative. Urine and CT abdomen and pelvis pending. Time: 10:33 Reevaluation #3: Patient now in rapid AFib and continues to have significant orthostatic hypotension. Atrial fibrillation with a rate of 180. Will give Cardizem 10 mg IV push at this time with fluids. [id number] Vasc Score for Afib:0?points Stroke risk was 0.2% per year in >90,000 patients (the [place] Atrial Fibrillation Cohort Study) and 0.3% risk of stroke/TIA/systemic embolism. Time: 13:28 Medications Administered Discontinued Medications Generic Name Dose Route Start Last Admin Trade Name Freq PRN Reason Stop Dose Admin Diltiazem HCl 10 mg 12/16/23 13:27 12/16/23 13:37 Diltiazem Hcl 50 Mg/10 Ml Vial IVPUSH 12/16/23 13:28 10 mg STAT STA Administration Sodium Chloride 1,000 mls @ 999 mls/hr 12/16/23 10:30 12/16/23 13:05 Ns IV 12/16/23 11:30 Infused .Q1H1M TRINO Infusion Sodium Chloride 1,000 mls @ 999 mls/hr 12/16/23 10:30 12/16/23 13:05 Ns IV 12/16/23 11:30 Infused .Q1H1M TRINO Infusion Sodium Chloride 1,000 mls @ 999 mls/hr 12/16/23 13:30 12/16/23 13:33 Ns IV 12/16/23 14:30 999 mls/hr .Q1H1M TRINO Administration Iohexol 100 ml 12/16/23 10:49 12/16/23 10:49 Iohexol 350 Mg/Ml 100 Ml Infus..Btl IV 12/16/23 10:50 85 ml ONCE ONE Administration Medical Decision Making Medical Decision Making [facility] Narrative: 63-year-old male presents with dizziness with positional changes, fatigue, malaise, myalgias, nausea, vomiting, diarrhea, abdominal pain and orange urine. Physical exam diffuse abdominal discomfort. Concerns for viral illness versus UTI versus obstructing uropathy versus orthostatic hypotension. Unlikely stroke, posterior stroke, ACS, acute abdomen, obstruction, pancreatitis, cholecystitis, appendicitis. Plan labs, imaging, urine, viral test Differential Diagnosis Differential Diagnoses: The differential diagnosis associated with the presentation includes Concerns for viral illness versus UTI versus obstructing uropathy versus orthostatic hypotension. Unlikely stroke, posterior stroke, ACS, acute abdomen, obstruction, pancreatitis, cholecystitis, appendicitis. Admission/Observation Consideration of admission/observation: Escalation of care including admission/observation considered likely Consult Healthcare Provider Management of the patient was discussed with: Hospitalist Lab Data [facility] Lab Attestation statement: I reviewed the patient's lab results. 12/16/23 09:48 12/16/23 09:48 Labs: Lab Results 12/16/23 12/16/23 12/16/23 Range/Units 09:27 09:48 09:52 WBC 6.9 (4.8-10.8) X10*3/uL RBC 5.85 H (4.60-5.80) X10*6/uL Hgb 18.2 H (14.0-18.0) g/dl Hct 53.1 H (42.0-52.0) % MCV 90.8 (80.0-98.0) fL MCH 31.1 (27.0-33.0) pg MCHC 34.3 (31.0-36.0) g/dl RDW 12.8 (11.0-16.0) % Plt Count 201 (160-400) X10*3/uL MPV 9.5 (9.4-12.4) fL Immature Gran % (Auto) 0.1 (0.0-0.4) % Neut % (Auto) 71.9 (45-73) % Lymph % (Auto) 17.1 L (20-40) % [place] % (Auto) 9.8 (2-11) % Eos % (Auto) 0.4 (0-4) % Baso % (Auto) 0.7 (0-2) % Lymph # (Auto) 1.2 (1.2-4.9) X10*3/uL [place] # (Auto) 0.7 (0.1-1.2) X10*3/uL Eos # (Auto) 0.0 (0.0-0.4) X10*3/uL Baso # (Auto) 0.1 (0.0-0.2) X10*3/uL Abs Immat Gran (auto) 0.01 (0.00-0.03) X10*3/uL Absolute Neuts (auto) 5.0 (2.0-8.3) x10*3/uL Absolute Nucleated RBC 0.000 (0.0-0.012) X10*3/uL Nucleated RBC % (auto) 0.0 (0.0-0.2) /100WBC PT (11.1-13.3) SEC INR (0.9-1.1) Sodium 137 (135-145) mmol/L Potassium 4.1 (3.3-5.1) mmol/L Chloride 99 (96-108) mmol/L Carbon Dioxide 23 (22-29) mmol/L Anion Gap 19 (12-20) BUN 12 (9-16) mg/dL Creatinine 1.13 (0.5-1.4) mg/dL Estim Creat Clear Calc 74.3 Estimated GFR > 60 Random Glucose 136 H (60-115) mg/dL Lactic Acid (0.5-2.0) mmol/L Calcium 9.8 D (8.4-10.2) mg/dL Total Bilirubin 2.9 H (0.0-1.0) mg/dL Direct Bilirubin 0.9 H (0.0-0.5) mg/dL AST 44 H (5-37) U/L ALT 31 (0-40) U/L Alkaline Phosphatase 52 (39-117) U/L Total Creatine Kinase 259 H (38-174) U/L Troponin I High Sens 7.0 (<3.5-35.0) ng/L B-Natriuretic Peptide 227 H (<100) pg/mL Total Protein 7.0 (6.5-8.0) g/dL Albumin 4.3 (3.5-5.0) g/dL Lipase 32 (8-78) U/L TSH 4.65 H (0.32-4.0) uIU/mL Urine Color Urine Appearance Urine pH (5.0-9.0) Ur Specific [place] (1.005-1.025) Urine Protein (Neg-Trace) mg/dL Urine Glucose (UA) (Negative) mg/dL Urine Ketones (Negative) mg/dL Urine Blood (Negative) Urine Nitrite (Negative) Ur Leukocyte Esterase (Negative) COVID-19 (BECKY) Negative (Negative) COVID-19 Clin Com See Note Influenza Type A (OBDULIA) Negative (Negative) Influenza Type B (OBDULIA) Negative (Negative) Influenza A & B Note See Note 12/16/23 12/16/23 12/16/23 Range/Units 11:43 12:26 13:26 WBC (4.8-10.8) X10*3/uL RBC (4.60-5.80) X10*6/uL Hgb (14.0-18.0) g/dl Hct (42.0-52.0) % MCV (80.0-98.0) fL MCH (27.0-33.0) pg MCHC (31.0-36.0) g/dl RDW (11.0-16.0) % Plt Count (160-400) X10*3/uL MPV (9.4-12.4) fL Immature Gran % (Auto) (0.0-0.4) % Neut % (Auto) (45-73) % Lymph % (Auto) (20-40) % [place] % (Auto) (2-11) % Eos % (Auto) (0-4) % Baso % (Auto) (0-2) % Lymph # (Auto) (1.2-4.9) X10*3/uL [place] # (Auto) (0.1-1.2) X10*3/uL Eos # (Auto) (0.0-0.4) X10*3/uL Baso # (Auto) (0.0-0.2) X10*3/uL Abs Immat Gran (auto) (0.00-0.03) X10*3/uL Absolute Neuts (auto) (2.0-8.3) x10*3/uL Absolute Nucleated RBC (0.0-0.012) X10*3/uL Nucleated RBC % (auto) (0.0-0.2) /100WBC PT 11.5 (11.1-13.3) SEC INR 0.9 (0.9-1.1) Sodium (135-145) mmol/L Potassium (3.3-5.1) mmol/L Chloride (96-108) mmol/L Carbon Dioxide (22-29) mmol/L Anion Gap (12-20) BUN (9-16) mg/dL Creatinine (0.5-1.4) mg/dL Estim Creat Clear Calc Estimated GFR Random Glucose (60-115) mg/dL Lactic Acid 1.4 (0.5-2.0) mmol/L Calcium (8.4-10.2) mg/dL Total Bilirubin (0.0-1.0) mg/dL Direct Bilirubin (0.0-0.5) mg/dL AST (5-37) U/L ALT (0-40) U/L Alkaline Phosphatase (39-117) U/L Total Creatine Kinase (38-174) U/L Troponin I High Sens 6.2 (<3.5-35.0) ng/L B-Natriuretic Peptide (<100) pg/mL Total Protein (6.5-8.0) g/dL Albumin (3.5-5.0) g/dL Lipase (8-78) U/L TSH (0.32-4.0) uIU/mL Urine Color Yellow Urine Appearance Clear Urine pH 6.5 (5.0-9.0) Ur Specific [place] >= 1.030 H (1.005-1.025) Urine Protein Negative (Neg-Trace) mg/dL Urine Glucose (UA) Negative (Negative) mg/dL Urine Ketones 15 (Negative) mg/dL Urine Blood Negative (Negative) Urine Nitrite Negative (Negative) Ur Leukocyte Esterase Negative (Negative) COVID-19 (BECKY) (Negative) COVID-19 Clin Com Influenza Type A (OBDULIA) (Negative) Influenza Type B (OBDULIA) (Negative) Influenza A & B Note Independent Interpretation I performed an independent interpretation of an: EKG and CT Scan Radiology Impression Discussion of test interpretation with radiology: I have reviewed the radiologist's reading. Critical Care Time Critical Care Time Critical Care Time: Yes Total Critical Care Time: 60 Attestation: I attest to this time spent taking care of the patient, obtaining history, physical, reviewing labs, imaging, speaking to my attending, speaking to specialist. Discharge Plan Discharge Clinical Impression: Orthostatic hypotension, Dehydration, New onset a-fib, Gallstones Patient Disposition: Still a Patient Prescriptions: No Action No Known Home Meds
--- NOTE | 2023-12-16 10:30 | PC.NURSE ---
pt on way to CT scan
--- NOTE | 2023-12-16 10:31 | ECG_ITS ---
Test Reason : WEAKNESS Blood Pressure : / mmHG Vent. Rate : 124 BPM Atrial Rate : 000 BPM P-R Int : 000 ms QRS Dur : 084 ms QT Int : 320 ms P-R-T Axes : 000 034 009 degrees QTc Int : 459 ms Atrial fibrillation with rapid ventricular response Abnormal ECG When compared with ECG of 19-JAN-2023 12:25, Atrial fibrillation has replaced Sinus rhythm Vent. rate has increased BY 46 BPM Referred By: Edu Vazquez Electronically Signed By:YNES TRENT
[2023-12-16] MEDS: iohexoL 350 MG/ML 100 ML INFUS..BTL IV (10:49)
[2023-12-16] MEDS: 0.9 % Sodium Chloride 1,000 ML 999 ML IV ×3 (10:57→13:33)
[2023-12-16 12:01] LABS: Lactic Acid 1.4 mmol/L (0.5-2.0)
[2023-12-16 12:34] LABS: Appearance Urine Clear; Color Urine Yellow; Glucose Urine UA Negative (Negative); Leukocyte Esterase Urine Negative (Negative); Nitrite Urine Negative (Negative); PH 6.5 (5.0-9.0); Specific Gravity - Urine >= 1.030 (1.005-1.025); Urine Blood Negative (Negative); Urine Ketones 15 mg/dL (Negative); Urine Protein Negative (Neg-Trace)
--- NOTE | 2023-12-16 13:30 | PC.NURSE ---
provider deni at bedside aware low bp 87/59 on sitting during orthos taken by tech
[2023-12-16] MEDS: dilTIAZem HCL 50 MG/10 ML VIAL 10 MG IVPUSH (13:37)
[2023-12-16 13:41] LABS: INTERNATIONAL NORM RATIO 0.9 (0.9-1.1); Prothrombin Time 11.5 SEC (11.1-13.3)
--- NOTE | 2023-12-16 13:45 | PC.NURSE ---
hr spiked to 170s, positive for orthos. sandeep cheema at bedside. gave cardizem per order. talking full sentences.
[2023-12-16 13:55] LABS: Troponin-I High Sensitivity 6.2 ng/L (<3.5-35.0)
[2023-12-16 14:01] LABS: B Type Natriuretic Peptide 227 pg/mL (<100)
[2023-12-16 14:19] LABS: Thyroid Stimulating Hormone 4.65 uIU/mL (0.32-4.0)
--- NOTE | 2023-12-16 14:41 | PHA.MEDREC ---
Pharmacy Consult ? Medication Reconciliation Pharmacy has completed the medication reconciliation. Patient confirms he takes no medication including OTC.
--- NOTE | 2023-12-16 16:25 | PC.NURSE ---
pt moved to main ed. hr elevated when stood to pick something up off ground to 170s. talking full sentences w/o issue. transferred to main ed. report given to felisha parsons
[2023-12-16] MEDS: Metoprolol Tartrate 25 MG TABLET PO ×2 (16:36→22:55)
[2023-12-16] MEDS: Folic Acid 1 MG TABLET PO (16:36)
[2023-12-16] MEDS: Thiamine HCL 100 MG TABLET PO (16:36)
[2023-12-16] MEDS: 0.9 % Sodium Chloride Flush 3 ML SYRINGE IVFLUSH (16:37)
--- NOTE | 2023-12-16 16:39 | P.HPHOSP_ITS ---
History of Present Illness Date of Service: 12/16/23 Attending physician on admission: Manas Melgar Chief Complaint: dizziness , tachycardia 63y/o m with no pmx presents to the ED for evaluation of fatigue, malaise, myalgias, dizziness with positional changes, nausea, vomiting, diarrhea, abdominal discomfort diffuse in nature, dark/orange urine all this has been going , patient says that he gets dizzy every time I tried to stand up and gets shaky. In addition patient says that he is having some URI like symptoms as above. Patient denies any shortness of breath or chest pain. Patient has nausea vomiting and 1 episode of diarrhea also since Wednesday, also complaining of change in the urine culture as above. in addition patient says that he drinks 12 pack beers. He tells me he is never felt this way before. Denies chest pain, shortness of breath, headache, vision changes. No known sick contacts Lab imaging EKG reviewed: Mild elevated LFTs, Abdominal CT scan: Cholelithiasis, splenomegaly H&H is elevated in 18 range likely due to dehydration. Mild elevated TSH. EKG shows AFib with ventricular rate of 124. Review of Systems 2 Review of Systems: Yes all other systems are reviewed and are negative ON LICENSE OF [facility] Medical History Daily consumption of alcohol No pertinent past medical history Sciatica Surgical History History of umbilical hernia repair H/O right knee surgery Social History Are you a primary health care coach to a significant other at home: No Do you presently have visiting nurse or other home services: No Alcohol intake: current Alcohol intake frequency: 3 or more drinks per day Alcohol type: beer Patient Tobacco Use Status: Former Tobacco user Quit Date: Age 20 Tobacco use type: Cigarette Substance Use Type: Marijuana Advance Directives: No Current occupational status: employed 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, 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 Meds Allergies Allergy/AdvReac Type Severity Reaction Status Date / Time No Known Allergies Allergy Verified 07/19/23 10:19 Active Medications: Current Medications Folic Acid (Folic Acid 1 Mg Tablet) 1 mg PO DAILY TRINO Last Admin: 12/16/23 16:36 Dose: 1 mg Metoprolol Tartrate (Metoprolol Tartrate 25 Mg Tablet) 25 mg PO BID [facility]; Protocol Last Admin: 12/16/23 16:36 Dose: 25 mg Sodium Chloride (0.9 % Sodium Chloride Flush 3 Ml Syringe) 3 ml IVFLUSH QSHIFT [facility] Last Admin: 12/16/23 16:37 Dose: 3 ml Thiamine HCl (Thiamine Hcl 100 Mg Tablet) 100 mg PO DAILY [facility] Last Admin: 12/16/23 16:36 Dose: 100 mg Home Medications Medication Instructions Recorded Confirmed Last Taken Type No Known Home Meds 12/16/23 12/16/23 Unknown History Physical Exam 2 Vital Signs and Narrative: Vital Signs: Last Vital Signs Temp 98.4 F 12/16/23 13:30 Pulse 110 H 12/16/23 16:30 Resp 16 12/16/23 16:30 BP 138/95 H 12/16/23 16:30 Pulse Ox 99 12/16/23 16:30 O2 Del Method Room Air 12/16/23 16:30 BMI result Body Mass Index 24.4 Appearance: Alert.? Oriented X3. cvs: irregular rythem, [id number] . res: clear to auscultation ,no rhonchii or wheezing abd: no rebound or guarding ,nt, bs present. ext pulses present , no cyanosis ,. neuro: axo3 , nonfocal. Results Labs 12/16/23 09:48 12/16/23 09:48 Labs: Laboratory Results - last 24 hr 12/16/23 12/16/23 12/16/23 09:27 09:48 11:43 MCV 90.8 MCH 31.1 MCHC 34.3 RDW 12.8 Plt Count 201 MPV 9.5 Immature Gran % (Auto) 0.1 Neut % (Auto) 71.9 Lymph % (Auto) 17.1 L Waller % (Auto) 9.8 Eos % (Auto) 0.4 Baso % (Auto) 0.7 Lymph # (Auto) 1.2 Waller # (Auto) 0.7 Eos # (Auto) 0.0 Baso # (Auto) 0.1 Abs Immat Gran (auto) 0.01 Absolute Neuts (auto) 5.0 Absolute Nucleated RBC 0.000 Nucleated RBC % (auto) 0.0 PT INR Anion Gap 19 Estim Creat Clear Calc 74.3 Estimated GFR > 60 Random Glucose 136 H Lactic Acid 1.4 Calcium 9.8 D Total Bilirubin 2.9 H Direct Bilirubin 0.9 H AST 44 H ALT 31 Alkaline Phosphatase 52 Total Creatine Kinase 259 H B-Natriuretic Peptide 227 H Total Protein 7.0 Albumin 4.3 Lipase 32 TSH 4.65 H Urine Color Urine Appearance Urine pH Ur Specific [place] Urine Protein Urine Glucose (UA) Urine Ketones Urine Blood Urine Nitrite Ur Leukocyte Esterase COVID-19 (BECKY) Negative COVID-19 Clin Com See Note Influenza Type A (OBDULIA) Negative Influenza Type B (OBDULIA) Negative Influenza A & B Note See Note 12/16/23 12/16/23 12:26 13:26 MCV MCH MCHC RDW Plt Count MPV Immature Gran % (Auto) Neut % (Auto) Lymph % (Auto) Waller % (Auto) Eos % (Auto) Baso % (Auto) Lymph # (Auto) Waller # (Auto) Eos # (Auto) Baso # (Auto) Abs Immat Gran (auto) Absolute Neuts (auto) Absolute Nucleated RBC Nucleated RBC % (auto) PT 11.5 INR 0.9 Anion Gap Estim Creat Clear Calc Estimated GFR Random Glucose Lactic Acid Calcium Total Bilirubin Direct Bilirubin AST ALT Alkaline Phosphatase Total Creatine Kinase B-Natriuretic Peptide Total Protein Albumin Lipase TSH Urine Color Yellow Urine Appearance Clear Urine pH 6.5 Ur Specific [place] >= 1.030 H Urine Protein Negative Urine Glucose (UA) Negative Urine Ketones 15 Urine Blood Negative Urine Nitrite Negative Ur Leukocyte Esterase Negative COVID-19 (BECKY) COVID-19 Clin Com Influenza Type A (OBDULIA) Influenza Type B (OBDULIA) Influenza A & B Note Imaging Radiologist's Impressions: Impressions Abdomen/Pelvis CT 12/16/23 10:52 IMPRESSION: 1. Splenomegaly. 2. Cholelithiasis and gallbladder polyps. Correlate with right upper quadrant ultrasound. 3. Diverticulosis without diverticulitis. 4. Hemangioma in the left lobe of the liver. Fleischner guidelines were followed. Chest X-Ray 12/16/23 11:15 IMPRESSION: No acute cardiopulmonary disease. Abdomen Ultrasound 12/16/23 15:08 IMPRESSION: No acute process Assessment and Plan (1) New onset a-fib: Status: Acute (2) Gallstones: Status: Acute (3) Dehydration: Status: Acute Plan 63y/o m with no pmx presents to the ED: With URI like symptoms, AFib with RVR, orthostatic possible secondary to dehydration orthostatic possible secondary to dehydration: Continue IV fluids, monitor orthostasis Mitchell stocking New onset AFib with RVR: Trop negative Started on metoprolol initially received IV digoxin, Kenn Vasc is low-currently no need anticoagulation. Echo, cardiology evaluation Elevated TSH: Around 4 range Will check free T4 URI like symptoms: Check respiratory panel Stool studies IV hydration Elevated bilirubin and LFTs:?unclear etiology -alcohol use might be contributin CT abdomen showed Splenomegaly, Cholelithiasis and gallbladder polyps abd us pending moniter lfts,will add hepatitis screen, alcohol use: last use on wednesday added thiamine folic acid, monitor CIWA DVT prophylaxis subQ Lovenox Ongoing hospitalization need: Symptomatic orthostatic hypotension with new onset AFib with RVR, elevated LFTs-patient need further management of orthostatic hypotension with IV fluids and need antiarrhythmics for AFib as well as workup for new onset AFib As well as workup for elevated LFTs. Depending upon that may need further expert advice Cardiology and GI If needed. Quality Stroke Does the patient have a stroke diagnosis?: No VTE Prior VTE?: No VTE Risk Level:: Medical - moderate - high VTE Device Contraindication: N/A - Device Ordered VTE Drug Contraindication: N/A - Med Ordered
[2023-12-16 16:44] LABS: Free T4 (Free Thyroxine) 1.06 ng/dL (0.71-1.85)
[2023-12-16] MEDS: 0.9 % Sodium Chloride 1,000 ML 100 ML IVCONT (17:18)
--- NOTE | 2023-12-16 18:21 | PC.NURSE ---
Assumed care of pt at 16:30. CIWA noted to be 5, Dr. Melgar made aware and phenobarb protocol initiated. VS stable, offers no complaints at this time.
[2023-12-16] MEDS: PHENobarbitaL 100 MG, PHENobarbitaL 30 MG, PHENobarbitaL 15 MG 145 MG PO (22:56)
[2023-12-17] VITALS (8 sets, daily range): BP systolic 103–128; BP diastolic 66–93; PULSE 85–114; RESP 16–20; TEMP 36.4–37; O2SAT 97–98
[2023-12-17] MEDS: PHENobarbitaL 100 MG, PHENobarbitaL 30 MG, PHENobarbitaL 15 MG 145 MG PO (03:16)
[2023-12-17] MEDS: 0.9 % Sodium Chloride 1,000 ML 100 ML IVCONT ×2 (04:36→14:31)
--- NOTE | 2023-12-17 07:00 | CA_ITS ---
Transthoracic Echocardiogram Patient (Last, First, Middle): Warren Astudillo M Gender: Male Date of : 1960 Age: 63 Procedure Date: 12/17/2023 Procedure Type: Transthoracic Echocardiogram Location: [facility] [place] Height: 182.88 cm Weight: 81.65 kg BSA: 2.04 m2 Heart Rate: bpm BP: 118 / 84 mmHg Licensed Practical Vocational Nurse: Referring MD: Manas Melgar MD Symptoms: Afib Study Quality: Adequate ECG Rhythm: Atrial Fibrillation Conclusions: - The left ventricular systolic function is low normal. The visually estimated ejection fraction is between 50-55%. - The left atrium is moderately dilated. - No obvious valvular pathology seen on this study. Findings Left Ventricle Normal left ventricular cavity size. There is normal left ventricular wall thickness. The left ventricular systolic function is low normal. The visually estimated ejection fraction is between 50-55%. There is no evidence of regional wall motion abnormalities. Diastolic function is indeterminate on the basis of available data. Right Ventricle Normal right ventricular cavity size and systolic function. Atria The left atrium is moderately dilated. The right atrium is normal in size. Aortic Valve There is a normal trileaflet aortic valve. There is no aortic valve stenosis. There is trace (trivial) aortic valve regurgitation. Mitral Valve The mitral valve appears normal. There is trace mitral valve regurgitation. There is no mitral valve stenosis. Pulmonic Valve The pulmonic valve is likely normal. Tricuspid Valve There is mild tricuspid valve regurgitation. There is no evidence of pulmonary hypertension. Great Vessels The asc aorta is normal in size. Venous The inferior vena cava is normal in size and collapses less than 50% with inspiration. Pericardium/Pleural There is no evidence of pericardial effusion. Prior Study Comparison No prior study available for comparison. Recommendations, Care & Conclusions No obvious valvular pathology seen on this study. Measurements 2D Linear Measurements IVSd: 1.00 0.6-0.9/0.6-1.0 cm LVIDd: 5.46 3.9-5.3/4.2-5.9 cm LVIDd Index: 2.68 2.4-3.2/2.2-3.1 cm/m2 LVIDs: 3.40 2.0-3.6 cm LVPWd: 0.93 0.7-1.1 cm Ao Root: 3.70 2.1-3.5 cm LA Diam: 4.00 2.7-3.8/3.0-4.0 cm LAIDs Index: 1.96 1.5-2.3 cm/m2 LV Mass: 249.25 67-162/88-224 g LV Mass Index: 122.18 43-95/49-115 g/m2 LVOT Diam: 2.30 3.0+(-)1.3 cm 2D Systolic Function EF 4C: 55.90 >55% EF 2C: 48.00 >55% EF BiP: 52.30 >55% Mitral Valve MV Pk E: 0.69 MV Decel Time: 184.00 E'Lateral: 11.90 E'Medial: 9.79 E/E' Med: 7.00 E/E' Lat: 5.80 PHT: 54.00 MVA PHT: 4.07 Decel Desha: 3.73 Aortic Valve AoV Pk Yash: 1.45 AoV Mn Yash: 1.06 AoV VTI: 0.27 AoV Pk Grad: 8.00 Aov Mn Grad: 5.00 BERE Cont.VTI: 2.11 LVOT LVOT Pk Yash: 0.81 LVOT Mn Yash: 0.55 LVOT VTI: 0.14 LVOT Pk Grad: 3.00 LVOT Mn Grad: 2.00 LVOT Diam: 2.30 LVOT Area: 4.15 Diastolic Function MV Pk E: 0.69 E'Medial: 9.79 E/E' Med: 7.00 E' Laterial: 11.90 E/E' Lat: 5.80 Right Ventricle TAPSE (mm): 18.00 Tricuspid Valve TR Pk Yash: 2.28 TR Pk Grad: 21.00 RA Press: 8.00 RVSP: 29.00 Great Vessels Aorta Ao Root-2D: 3.70 2.0-3.7 cm Ao Asc: 3.60 2.1-3.4 cm Pulmonary Valve PV Pk Yash: 0.82 Peak PV Grad: 3.00 Updated in Other Vendor System with Status of Final Meño Parker MD electronically signed on 12/17/2023 12:14:57 PM with status of Final
[2023-12-17 07:47] LABS: Adenovirus PCR Not Detected (Not Detect.); Bordetella parapertussis PCR Not Detected (Not Detect.); Bordetella pertussis PCR Not Detected (Not Detect.); Chlamydia pneumoniae PCR Not Detected (Not Detect.); Coronavirus 229E PCR Not Detected (Not Detect.); Coronavirus HKU1 PCR Not Detected (Not Detect.); Coronavirus NL63 PCR Not Detected (Not Detect.); Coronavirus OC43 PCR Not Detected (Not Detect.); Human metapneumovirus PCR Not Detected (Not Detect.); Influenza A PCR Not Detected (Not Detect.); Influenza B PCR Not Detected (Not Detect.); Mycoplasma pneumoniae PCR Not Detected (Not Detect.); Parainfluenza 1 PCR Not Detected (Not Detect.); Parainfluenza 2 PCR Not Detected (Not Detect.); Parainfluenza 3 PCR Not Detected (Not Detect.); Parainfluenza 4 PCR Not Detected (Not Detect.); RSV PCR Not Detected (Not Detect.); Rhino/Enterovirus PCR Not Detected (Not Detect.)
[2023-12-17 08:11] LABS: SARS-CoV-2 PCR Not Detected (Not Detect.)
--- NOTE | 2023-12-17 10:20 | MHC.CM.PN ---
EMR REVIEWED, PT ADMITTED W/AFIB/ORTHOSTASIS, CM MET W/PT WHO REPORTS HE LIVES ALONE, IS FULLY INDEP W/CARE, DENIES USE OF DME/SERVICES, PT REPORTS HE MAY HAVE A RIDE BUT WILL LIKELY NEED [facility] HOME DEPENDING ON WHEN PT IS DISCHARGED. PT WOULD NOT QUALIFY FOR [facility] SERVICES HE IS NOT ACTIVE W/PCP. PT REPORTS HE HAS A NEW PCP APPT IN [place] HOWEVER PER [facility] PT'S NEW PT/PHYSICAL APPT IS March AT 4PM W/JENI BOBO, APPT HAS BEEN ADDED TO DC PAPERWORK, PT REPORTS HE HAD BEEN GOING TO THE [facility] WHEN HE NEEDED ANYTHING. PT COMPLETING A HCP AND NAMING HIS SISTER CHELSEA TRUJILLO [phone] HIS [facility] AND NO ALTERNATE AT THIS TIME. PT REPORTS BEING FULLY COVID/FLU VAXED
[2023-12-17 10:23] LABS: Hematocrit 45.7 % (42.0-52.0); Hemoglobin 15.8 g/dl (14.0-18.0); Mean Corpuscular HGB Conc 34.6 g/dl (31.0-36.0); Mean Corpuscular Hemoglobin 31.8 pg (27.0-33.0); Mean Platelet Volume 10.1 fL (9.4-12.4); Platelet Count 144 X10*3/uL (160-400); Red Blood Count 4.97 X10*6/uL (4.60-5.80); Red Cell Distribution Width 12.5 % (11.0-16.0); White Blood Count 4.2 X10*3/uL (4.8-10.8)
[2023-12-17] MEDS: Folic Acid 1 MG TABLET PO (10:24)
[2023-12-17] MEDS: Thiamine HCL 100 MG TABLET PO (10:24)
[2023-12-17] MEDS: PHENobarbitaL 30 MG TABLET 60 MG PO ×2 (10:24→21:16)
[2023-12-17 10:32] LABS: Alanine Aminotransferase 27 U/L (0-40); Albumin Level 3.4 g/dL (3.5-5.0); Alkaline Phosphatase 40 U/L (39-117); Anion Gap 13 (12-20); Aspartate Amino Transferase 34 U/L (5-37); Bilirubin Total 1.7 mg/dL (0.0-1.0); Blood Urea Nitrogen 7 mg/dL (9-16); Calcium 8.5 mg/dL (8.4-10.2); Carbon Dioxide 24 mmol/L (22-29); Chloride 103 mmol/L (96-108); Creatinine Clr Calc Pharmacy 98.9; Estimated Glomerular Filt Rate > 60; Glucose Random 171 mg/dL (60-115); Potassium 3.1 mmol/L (3.3-5.1); Sodium 137 mmol/L (135-145); Total Protein 5.6 g/dL (6.5-8.0)
[2023-12-17 10:53] LABS: HBS Num1 0.44 mIU/mL (0-7.99); HBc Num1 0.08 S/CO (0.00-0.79); HBsAGNum1 0.38 S/CO (0.00-0.99); Hepatitis A Antibody IgM 0.19 Index (0-0.79); Hepatitis B Core Antibody Nonreactive (Nonreactive); Hepatitis B Surface Antigen Negative (Negative); ~Hepatitis A Antibody IgM Nonreactive (Nonreactive); ~Hepatitis B Surface Antibody NONREACTIVE (Nonreactive); ~Hepatitis C Antibody Nonreactive (Nonreactive)
--- NOTE | 2023-12-17 11:00 | PM.CNCAR ---
History of Present Illness History of Present Illness Date of Service: 12/17/23 Chief complaint: AFIB, orthostasis Narrative: This is a cardiology consultation regarding atrial fibrillation. Patient does not have any cardiac issues including coronary disease or myocardial infarction or cardiomyopathy. He is presenting for multiple issues including fatigue, malaise, myalgias, dizziness, nausea, vomiting, diarrhea, abdominal discomfort extra. In this context, he has been found to have atrial fibrillation with slightly rapid rate. Otherwise, it seems that he does drink alcohol daily about 6 pack but in the H&P, listed as 12 pack beers. 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 No cardiac symptoms at any point. Review of Systems Review of Systems: Yes all other systems are reviewed and are negative Constitutional: Constitutional: Reports as per HPI and Reports no additional constitutional complaints Eyes: Eyes: Reports as per HPI and Denies no additional eye complaints ENT: Denies system reviewed and no additional complaints, except as documented and Reports as per HPI Cardiovascular: Cardiovascular: Reports as per HPI, Reports no additional cardiovascular complaints, Denies acrocyanosis, Denies cool extremities, Denies chest pain, Denies leg edema, Denies lightheadedness, Denies palpitations and Denies dyspnea Respiratory: Respiratory: Reports as per HPI, Denies no additional respiratory complaints and Denies dyspnea Gastrointestinal: Gastrointestinal: Reports as per HPI and Denies no additional gastrointestinal complaints Genitourinary: Genitourinary: Reports no additional male genitourinary complaints and Reports as per HPI Musculoskeletal: Musculoskeletal: Reports no additional musculoskeletal complaints and Reports as per HPI Integumentary/Breasts: Skin/Breast: Reports system reviewed and no additional complaints, except as docu Neurologic: Reports system reviewed and no additional complaints, except as documented and Reports as per HPI Psychiatric: Psychiatric: Reports no additional psychiatric complaints and Reports as per HPI Endocrine: Endocrine: Reports no additional endocrine complaints, Reports as per HPI and Denies palpitations Hematologic/Lymphatic: Hematologic/Lymphatic: Reports no additional hematologic/lymphatic complaints and Reports as per HPI Allergic/Immunologic: Allergic/Immunologic: Reports no additional allergic/immunologic complaints and Reports as per HPI [facility] Past Medical History Medical History (Updated 12/17/23 @ 11:02 by Meño Parker MD) Daily consumption of alcohol No pertinent past medical history Sciatica Family History Family History (Updated 12/17/23 @ 11:01 by Meño Parker MD) Brother History of open heart surgery Surgical History Surgical History History of umbilical hernia repair H/O right knee surgery Social History Social History Household Members: None Housing: House Are you a primary rn acute care to a significant other at home: No Do you presently have visiting nurse or other home services: No Alcohol intake: current Alcohol intake frequency: 3 or more drinks per day Alcohol type: beer Patient Tobacco Use Status: Former Tobacco user Quit Date: 1979 Tobacco use type: Cigarette Years Smoked: 8 Second Hand Smoke Exposure: No Substance Use Type: Marijuana service: No Current occupational status: employed 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, 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 Meds Allergies Allergy/AdvReac Type Severity Reaction Status Date / Time No Known Allergies Allergy Verified 07/19/23 10:19 Active Medications: Current Medications Folic Acid (Folic Acid 1 Mg Tablet) 1 mg PO DAILY [facility] Last Admin: 12/17/23 10:24 Dose: 1 mg Sodium Chloride (Ns) 1,000 mls @ 100 mls/hr IVCONT .Q10H [facility] Last Admin: 12/17/23 04:36 Dose: 100 mls/hr Metoprolol Tartrate (Metoprolol Tartrate 50 Mg Tablet) 50 mg PO BID [facility]; Protocol Pharmacy Consult (Consult Rx Etoh Phenob Po Only) 1 each MISCELLANE ONCE PRN; Protocol PRN Reason: Consult order Phenobarbital (Phenobarbital 30 Mg Tablet) 60 mg PO BID [facility]; Protocol Stop: 12/18/23 21:01 Last Admin: 12/17/23 10:24 Dose: 60 mg Phenobarbital (Phenobarbital 30 Mg Tablet) 30 mg PO BID [facility]; Protocol Stop: 12/20/23 21:01 Phenobarbital (Phenobarbital 30 Mg Tablet) 30 mg PO DAILY [facility]; Protocol Stop: 12/22/23 09:01 Sodium Chloride (0.9 % Sodium Chloride Flush 3 Ml Syringe) 3 ml IVFLUSH QSHIFT [facility] Last Admin: 12/17/23 10:09 Dose: Not Given Thiamine HCl (Thiamine Hcl 100 Mg Tablet) 100 mg PO DAILY [facility] Last Admin: 12/17/23 10:24 Dose: 100 mg Home Medications Medication Instructions Recorded Confirmed Last Taken Type No Known Home Meds 12/16/23 12/16/23 Unknown History Physical Exam Vital Signs: Vital Signs: Last Vital Signs Temp 98.6 F 12/17/23 07:40 Pulse 114 H 12/17/23 10:48 Resp 20 12/17/23 07:40 BP 108/78 12/17/23 10:48 Pulse Ox 98 12/17/23 07:40 O2 Del Method Room Air 12/17/23 07:40 BMI result Body Mass Index 26.0 Const: General: comfortable and no acute distress Orientation/consciousness: patient oriented x3 HEENT: Other: Unremarkable Head: Yes normal to inspection Neck: Neck: Yes normal visual inspection Chest: Chest palpation & inspection: normal inspection of the chest Resp: Auscultation: clear to auscultation bilaterally Cardio: Palpation: normal PMI Heart sounds: S1 normal heart sound present, S2 normal heart sound present, no gallops, no murmurs and no rubs GI: Palpation (GI): Soft to palpation Back/Spine/Pelvis: Other: unremarkable Skin: General skin exam: no rashes or lesions noted Neuro: General: patient oriented x3 Extrem: General: Yes normal to inspection Psych: Mental Status: mental status grossly normal Objective Labs and Meds 12/17/23 09:32 12/17/23 09:32 Lab results: Laboratory Results - last 24 hr 12/16/23 12/16/23 12/16/23 09:48 09:52 11:43 WBC RBC Hgb Hct MCV MCH MCHC RDW Plt Count MPV Absolute Nucleated RBC Nucleated RBC % (auto) PT INR Sodium Potassium Chloride Carbon Dioxide Anion Gap BUN Creatinine Estim Creat Clear Calc Estimated GFR Random Glucose Lactic Acid 1.4 Calcium Total Bilirubin AST ALT Alkaline Phosphatase Troponin I High Sens 7.0 B-Natriuretic Peptide 227 H Total Protein Albumin TSH 4.65 H Free T4 Urine Color Urine Appearance Urine pH Ur Specific [place] Urine Protein Urine Glucose (UA) Urine Ketones Urine Blood Urine Nitrite Ur Leukocyte Esterase Respiratory Panel Eli Adenovirus (Rapid PCR) B.pert (TEM-PCR) B.parapertussis DNA PCR C. pneumoniae DNA (PCR) Coronavirus OC43 (PCR) Coronavirus HKU1 (PCR) Coronavirus 229E (PCR) Coronavirus NL63 (PCR) Human Metapneumovir PCR Influenza A (RT-PCR) Influenza B (RT-PCR) M. pneumoniae (PCR) Parainfluenza 1 (PCR) Parainfluenza 2 (PCR) Parainfluenza 3 (PCR) Parainfluenza 4 (PCR) RSV (PCR) Entero/Rhino (PCR) SARS-CoV-2 RNA (RT-PCR) 12/16/23 12/16/23 12/16/23 12:26 13:26 16:49 WBC RBC Hgb Hct MCV MCH MCHC RDW Plt Count MPV Absolute Nucleated RBC Nucleated RBC % (auto) PT 11.5 INR 0.9 Sodium Potassium Chloride Carbon Dioxide Anion Gap BUN Creatinine Estim Creat Clear Calc Estimated GFR Random Glucose Lactic Acid Calcium Total Bilirubin AST ALT Alkaline Phosphatase Troponin I High Sens 6.2 B-Natriuretic Peptide Total Protein Albumin TSH Free T4 1.06 Urine Color Yellow Urine Appearance Clear Urine pH 6.5 Ur Specific [place] >= 1.030 H Urine Protein Negative Urine Glucose (UA) Negative Urine Ketones 15 Urine Blood Negative Urine Nitrite Negative Ur Leukocyte Esterase Negative Respiratory Panel Eli See Note Adenovirus (Rapid PCR) Not Detected B.pert (TEM-PCR) Not Detected B.parapertussis DNA PCR Not Detected C. pneumoniae DNA (PCR) Not Detected Coronavirus OC43 (PCR) Not Detected Coronavirus HKU1 (PCR) Not Detected Coronavirus 229E (PCR) Not Detected Coronavirus NL63 (PCR) Not Detected Human Metapneumovir PCR Not Detected Influenza A (RT-PCR) Not Detected Influenza B (RT-PCR) Not Detected M. pneumoniae (PCR) Not Detected Parainfluenza 1 (PCR) Not Detected Parainfluenza 2 (PCR) Not Detected Parainfluenza 3 (PCR) Not Detected Parainfluenza 4 (PCR) Not Detected RSV (PCR) Not Detected Entero/Rhino (PCR) Not Detected SARS-CoV-2 RNA (RT-PCR) Not Detected 12/17/23 09:32 WBC 4.2 L RBC 4.97 Hgb 15.8 Hct 45.7 MCV 92.0 MCH 31.8 MCHC 34.6 RDW 12.5 Plt Count 144 L D MPV 10.1 Absolute Nucleated RBC 0.000 Nucleated RBC % (auto) 0.0 PT INR Sodium 137 Potassium 3.1 L D Chloride 103 Carbon Dioxide 24 Anion Gap 13 BUN 7 L Creatinine 0.85 Estim Creat Clear Calc 98.9 Estimated GFR > 60 Random Glucose 171 H Lactic Acid Calcium 8.5 D Total Bilirubin 1.7 H AST 34 ALT 27 Alkaline Phosphatase 40 Troponin I High Sens B-Natriuretic Peptide Total Protein 5.6 L Albumin 3.4 L TSH Free T4 Urine Color Urine Appearance Urine pH Ur Specific [place] Urine Protein Urine Glucose (UA) Urine Ketones Urine Blood Urine Nitrite Ur Leukocyte Esterase Respiratory Panel Eli Adenovirus (Rapid PCR) B.pert (TEM-PCR) B.parapertussis DNA PCR C. pneumoniae DNA (PCR) Coronavirus OC43 (PCR) Coronavirus HKU1 (PCR) Coronavirus 229E (PCR) Coronavirus NL63 (PCR) Human Metapneumovir PCR Influenza A (RT-PCR) Influenza B (RT-PCR) M. pneumoniae (PCR) Parainfluenza 1 (PCR) Parainfluenza 2 (PCR) Parainfluenza 3 (PCR) Parainfluenza 4 (PCR) RSV (PCR) Entero/Rhino (PCR) SARS-CoV-2 RNA (RT-PCR) ECG Interpretation: EKG with atrial fibrillation at a rate of 124/Min. Prior EKG from last year shows sinus rhythm. Imaging Radiologist's impression: Impressions Abdomen/Pelvis CT 12/16/23 10:52 IMPRESSION: 1. Splenomegaly. 2. Cholelithiasis and gallbladder polyps. Correlate with right upper quadrant ultrasound. 3. Diverticulosis without diverticulitis. 4. Hemangioma in the left lobe of the liver. Fleischner guidelines were followed. Chest X-Ray 12/16/23 11:15 IMPRESSION: No acute cardiopulmonary disease. Abdomen Ultrasound 12/16/23 15:08 IMPRESSION: No acute process Assessment and Plan (1) Atrial fibrillation with rapid ventricular response: Status: Acute (2) Daily consumption of alcohol: Status: Acute Plan Newly detected atrial fibrillation of unknown duration, slightly increased CK which may be from muscle source, normal high sensitivity troponins, slightly increased cardiac BNP, daily drinking. At this time, heart rate is around 100-110/Min. We can try to increase the beta-kyle dosing to metoprolol 50 mg b.i.d., if blood pressure allows. If not, keep the same dose. Start Eliquis. Will review the echocardiogram. Overall thromboembolic risk is low but he may need cardioversion and before that will need 4 weeks of anticoagulation. Discussed with Dr. Melgar. Procedures Date of Service Date of Service: 12/17/23
[2023-12-17 11:05] LABS: Folate 9.3 ng/mL (> or = 4.0); Vitamin B12 532 pg/mL (200-900)
--- NOTE | 2023-12-17 13:22 | P.PNIM_ITS ---
Subjective Subjective Date of Service: 12/17/23 Interval History: dizziness , tachycardia Review of Systems seems still tachy 120's no chest pain or sob Physical Exam 2 Vital Signs: Vital Signs: Last Vital Signs Temp 98.1 F 12/17/23 11:19 Pulse 88 12/17/23 11:19 Resp 20 12/17/23 11:19 BP 103/72 12/17/23 11:19 Pulse Ox 98 12/17/23 11:19 O2 Del Method Room Air 12/17/23 11:19 BMI result Body Mass Index 26.0 Appearance: Alert.? Oriented X3.? cvs:irregular rythem , [id number] . res: clear to auscultation ,no rhonchii or wheezing abd: no rebound or guarding ,nt, bs present. ext pulses present , no cyanosis . neuro: axo3 , nonfocal. Objective Data Active Medications Folic Acid (Folic Acid 1 Mg Tablet) 1 mg PO DAILY [facility] Last Admin: 12/17/23 10:24 Dose: 1 mg Documented By: ROSIO Sodium Chloride (Ns) 1,000 mls @ 100 mls/hr IVCONT .Q10H [facility] Last Admin: 12/17/23 04:36 Dose: 100 mls/hr Documented By: CLYDE Metoprolol Tartrate (Metoprolol Tartrate 50 Mg Tablet) 50 mg PO BID [facility]; Protocol Pharmacy Consult (Consult Rx Etoh Phenob Po Only) 1 each MISCELLANE ONCE PRN; Protocol PRN Reason: Consult order Phenobarbital (Phenobarbital 30 Mg Tablet) 60 mg PO BID [facility]; Protocol Stop: 12/18/23 21:01 Last Admin: 12/17/23 10:24 Dose: 60 mg Documented By: ROSIO Phenobarbital (Phenobarbital 30 Mg Tablet) 30 mg PO BID [facility]; Protocol Stop: 12/20/23 21:01 Phenobarbital (Phenobarbital 30 Mg Tablet) 30 mg PO DAILY [facility]; Protocol Stop: 12/22/23 09:01 Sodium Chloride (0.9 % Sodium Chloride Flush 3 Ml Syringe) 3 ml IVFLUSH QSHIFT [facility] Last Admin: 12/17/23 10:09 Dose: Not Given Documented By: ROSIO Non-Admin Reason: IV Running Thiamine HCl (Thiamine Hcl 100 Mg Tablet) 100 mg PO DAILY [facility] Last Admin: 12/17/23 10:24 Dose: 100 mg Documented By: ROSIO Labs 12/17/23 09:32 12/17/23 09:32 Labs: Laboratory Results - last 24 hr 12/16/23 12/16/23 12/16/23 09:48 13:26 16:49 MCV MCH MCHC RDW Plt Count MPV Absolute Nucleated RBC Nucleated RBC % (auto) PT 11.5 INR 0.9 Anion Gap Estim Creat Clear Calc Estimated GFR Random Glucose Calcium Total Bilirubin AST ALT Alkaline Phosphatase B-Natriuretic Peptide 227 H Total Protein Albumin Vitamin B12 Folate TSH 4.65 H Free T4 1.06 Respiratory Panel Eli See Note Adenovirus (Rapid PCR) Not Detected B.pert (TEM-PCR) Not Detected B.parapertussis DNA PCR Not Detected C. pneumoniae DNA (PCR) Not Detected Coronavirus OC43 (PCR) Not Detected Coronavirus HKU1 (PCR) Not Detected Coronavirus 229E (PCR) Not Detected Coronavirus NL63 (PCR) Not Detected Hepatitis A IgM Ab Hep Bs Antigen Hep Bs Antibody Hep B Core Total Ab Hepatitis C Ab (EIA) Human Metapneumovir PCR Not Detected Influenza A (RT-PCR) Not Detected Influenza B (RT-PCR) Not Detected M. pneumoniae (PCR) Not Detected Parainfluenza 1 (PCR) Not Detected Parainfluenza 2 (PCR) Not Detected Parainfluenza 3 (PCR) Not Detected Parainfluenza 4 (PCR) Not Detected RSV (PCR) Not Detected Entero/Rhino (PCR) Not Detected SARS-CoV-2 RNA (RT-PCR) Not Detected 12/17/23 12/17/23 09:32 10:07 MCV 92.0 MCH 31.8 MCHC 34.6 RDW 12.5 Plt Count 144 L D MPV 10.1 Absolute Nucleated RBC 0.000 Nucleated RBC % (auto) 0.0 PT INR Anion Gap 13 Estim Creat Clear Calc 98.9 Estimated GFR > 60 Random Glucose 171 H Calcium 8.5 D Total Bilirubin 1.7 H AST 34 ALT 27 Alkaline Phosphatase 40 B-Natriuretic Peptide Total Protein 5.6 L Albumin 3.4 L Vitamin B12 532 Folate 9.3 TSH Free T4 Respiratory Panel Eli Adenovirus (Rapid PCR) B.pert (TEM-PCR) B.parapertussis DNA PCR C. pneumoniae DNA (PCR) Coronavirus OC43 (PCR) Coronavirus HKU1 (PCR) Coronavirus 229E (PCR) Coronavirus NL63 (PCR) Hepatitis A IgM Ab Nonreactive Hep Bs Antigen Negative Hep Bs Antibody NONREACTIVE Hep B Core Total Ab Nonreactive Hepatitis C Ab (EIA) Nonreactive Human Metapneumovir PCR Influenza A (RT-PCR) Influenza B (RT-PCR) M. pneumoniae (PCR) Parainfluenza 1 (PCR) Parainfluenza 2 (PCR) Parainfluenza 3 (PCR) Parainfluenza 4 (PCR) RSV (PCR) Entero/Rhino (PCR) SARS-CoV-2 RNA (RT-PCR) Assessment and Plan (1) Atrial fibrillation with rapid ventricular response: Status: Acute (2) New onset a-fib: Status: Acute Plan 63y/o m with no pmx presents to the ED: With URI like symptoms, AFib with RVR, orthostatic possible secondary to dehydration orthostatic possible secondary to dehydration: Continue IV fluids, monitor orthostasis Mitchell stocking New onset AFib with RVR: Trop negative Started on metoprolol initially received IV diltiazem , Kenn Vasc is low- currently no need anticoagulation. added digoxin loading Echo cardiology evaluation Elevated TSH: Around 4 range normalfree T4 URI like symptoms: Check respiratory panel-neg Stool studies send when stool available. IV hydration Elevated bilirubin and LFTs:?unclear etiology -alcohol use might be contributin CT abdomen showed Splenomegaly, Cholelithiasis and gallbladder polyps abd us-possible hemanioma left lobe of liver .The gallbladder is physiologically distended without evidence of stones, sludge, polyps, wall thickening or pericholecystic fluid. hepatitis screen seems fine lft's improving alcohol use: on phenocarbital protocol. thiamine folic acid, monitor CIWA DVT prophylaxis subQ Lovenox Ongoing hospitalization need: Symptomatic orthostatic hypotension with new onset AFib with RVR, elevated LFTs-patient need further management of orthostatic hypotension with IV fluids and need antiarrhythmics for AFib as well as workup for new onset AFib As well as workup for elevated LFTs. Depending upon that may need further expert advice Cardiology and GI If needed. Quality Stroke Does the patient have a stroke diagnosis?: No VTE Prior VTE?: No VTE Risk Level:: Medical - moderate - high VTE Device Contraindication: N/A - Device Ordered VTE Drug Contraindication: N/A - Med Ordered
[2023-12-17] MEDS: Potassium Chloride Packet 20 MEQ PACKET 40 MEQ PO (14:31)
[2023-12-17] MEDS: 0.9 % Sodium Chloride Flush 3 ML SYRINGE IVFLUSH (21:17)
[2023-12-17] MEDS: Metoprolol Tartrate 50 MG TABLET PO (21:17)
[2023-12-18] MEDS: 0.9 % Sodium Chloride Flush 3 ML SYRINGE IVFLUSH ×2 (02:45→09:20)
[2023-12-18] MEDS: 0.9 % Sodium Chloride 1,000 ML 100 ML IVCONT (02:45)
[2023-12-18 03:28] VITALS: BP 116/84; PULSE 78; RESP 20; TEMP 36.8; O2SAT 96
[2023-12-18 07:23] VITALS: BP 133/97; PULSE 99; RESP 20; TEMP 36.7; O2SAT 96
[2023-12-18] MEDS: PHENobarbitaL 30 MG TABLET 60 MG PO (09:19)
[2023-12-18] MEDS: Folic Acid 1 MG TABLET PO (09:19)
[2023-12-18] MEDS: Thiamine HCL 100 MG TABLET PO (09:19)
[2023-12-18] MEDS: Metoprolol Tartrate 50 MG TABLET PO (09:19)
[2023-12-18 12:00] VITALS: BP 102/81; PULSE 77; RESP 20; TEMP 36.1; O2SAT 97
--- NOTE | 2023-12-18 12:36 | PM.DS ---
DS: Providers Provider Date of Service: 12/18/23 Date of admission: 12/16/23 15:59 Date of discharge: 12/18/23 Primary care physician: GAMA Saunders Consults: 12/16/23 15:59 Consult to Cardiology Routine Consulting [place] [facility] [place] [place] [facility] Reason for consultation: new onset afib Has provider been notified: No Attending physician on discharge: Manas Melgar Discharging clinician: Manas Melgar DS: Diagnosis Discharge Diagnosis (1) Atrial fibrillation with rapid ventricular response: Status: Acute (2) New onset a-fib: Status: Acute DS: Summary Hospital Course Hospital Course: 63y/o m with no pmx presents to the ED for evaluation of fatigue, malaise, myalgias, dizziness with positional changes, nausea, vomiting, diarrhea, abdominal discomfort diffuse in nature, dark/orange urine all this has been going , patient says that he gets dizzy every time I tried to stand up and gets shaky. In addition patient says that he is having some URI like symptoms as above. Patient denies any shortness of breath or chest pain. Patient has nausea vomiting and 1 episode of diarrhea also since Wednesday, also complaining of change in the urine culture as above. in addition patient says that he drinks 12 pack beers. He tells me he is never felt this way before. Denies chest pain, shortness of breath, headache, vision changes. No known sick contacts Lab imaging EKG reviewed: Mild elevated LFTs, Abdominal CT scan: Cholelithiasis, splenomegaly H&H is elevated in 18 range likely due to dehydration. Mild elevated TSH. EKG shows AFib with ventricular rate of 124. Hospital course: Patient came to the hospital because of new onset AFib-given IV metoprolol initially and then subsequently started on p.o. metoprolol heart rate seems to be improving significantly, currently asymptomatic-seen by Cardiology recommended to switch to metoprolol 50 b.i.d. in addition recommended to add Eliquis for now in anticipation of possible cardioversion. Alcohol withdrawal: Patient was treated with phenobarb protocol seems to be improved significantly . Strongly advised to abstain from alcohol use. Elevated LFTs: Patient is currently asymptomatic, LFT seems improving, hepatitis screen for hepatitis a, B, C is nonreactive. Abdominal ultrasound: Liver seems fine except has hemangioma in addition CT abdomen: Also showed question of splenomegaly. Monitor LFTs out patiently. TSH mildly elevated but free T4 is normal: Monitor TSH out patiently. plan: continue mteoprolol 50 mg po bid ,eliquis 5 mg po bid . moniter lft's and tsh outpatient. Strongly advised to abstain from alcohol use. consider outpatient Gi eval for above elevated Lft's ,splenomegaly . told for arranging pcp appointment. Patient was strongly advised to get PCP appointment as well as follow-up with Cardiology outpatient(patient already has appointment) Above management discussed with the patient in detail length he understand and in agreement with the above plan, time spent 50 minute. Time Attestation Discharge coordination time: Greater than 30 minutes Quality: Safe Use of Opioids Does Pt have an Active Cancer Diagnosis on the Problem List?: No Quality: Stroke Does the patient have a stroke diagnosis?: No Physical Exam Vital Signs: Vital Signs: Last Vital Signs Temp 97.0 F 12/18/23 12:00 Pulse 77 12/18/23 12:00 Resp 20 12/18/23 12:00 BP 102/81 12/18/23 12:00 Pulse Ox 97 12/18/23 12:00 O2 Del Method Room Air 12/18/23 12:00 BMI result Body Mass Index 26.0 Appearance: Alert.? Oriented X3.? cvs:irregular rythem , [id number] . res: clear to auscultation ,no rhonchii or wheezing abd: no rebound or guarding ,nt, bs present. ext pulses present , no cyanosis . neuro: axo3 , nonfocal. DS: Data Data Completed and Pending Labs on day of discharge: Preliminary micro results at discharge 12/16/23 11:43 Blood Culture - Preliminary Blood - Venous No growth after 24 hours. 12/16/23 11:43 Blood Culture - Preliminary Blood - Venous No growth after 24 hours. Imaging Chest x-ray: Radiologist's impression: ITS Impressions Abdomen/Pelvis CT 12/16/23 10:52 IMPRESSION: 1. Splenomegaly. 2. Cholelithiasis and gallbladder polyps. Correlate with right upper quadrant ultrasound. 3. Diverticulosis without diverticulitis. 4. Hemangioma in the left lobe of the liver. Fleischner guidelines were followed. Chest X-Ray 12/16/23 11:15 IMPRESSION: No acute cardiopulmonary disease. Abdomen Ultrasound 12/16/23 15:08 IMPRESSION: No acute process Discharge Plan Discharge Anticipated Discharge Date/Time: 12/18/23 12:19 Patient Disposition: Home, Self-Care Discharge Diagnosis: new onset afib, elevated lft's , alcoohol withdrawal Ref[place]: [facility] [place] [place] [facility] [place]Other] - 1 Week (CALL [facility] IF YOU HAVE AN APPOINTMENT ON HOSPITAL CAMPUS, THE SHUTTLE WILL PICK YOU UP AND BRING YOU HOME BUT ONLY RUNS WEDNESDAY- WEDNESDAY 7AM-3PM, PLEASE CALL AT SOON YOUR APPT IS MADE SO YOU CAN BE FIT IN SCHEDULE, 2-4WKS PRIOR TO APPT. ) Koko Keys, [employer] [Primary Care Provider] - 1 Week (PLEASE KEEP YOUR NEW PATIENT & PHYSICAL APPT ON MARCH 27 at 4pm. ) Discharge Medications: New metoprolol tartrate 50 mg Tablet 50 mg PO BID Qty: 60 0RF Protocol: Hold for SBP/HR < HOLD for SBP < : 90 HOLD for HR < : 60 folic acid 1 mg Tablet 1 mg PO DAILY Qty: 30 0RF thiamine mononitrate (vit B1) 100 mg Tablet 100 mg PO DAILY Qty: 30 0RF Eliquis 5 mg tablet 5 mg PO BID Qty: 60 0RF Discharge Orders: Discharge Order (Routine); Ordered 12/18/23 Ordered By: Manas Melgar Diet: Advance to usual diet Activity on Discharge: As tolerated Stand Alone Forms: Patient Portal Discharge page, Work/School Release Care Plan Goals: Patient came to the hospital because of new onset AFib-given IV metoprolol initially and then subsequently started on p.o. metoprolol heart rate seems to be improving significantly, currently asymptomatic-seen by Cardiology recommended to switch to metoprolol 50 b.i.d. in addition recommended to add Eliquis for now in anticipation of possible cardioversion. Alcohol withdrawal: Patient was treated with phenobarb protocol seems to be improved significantly . Strongly advised to abstain from alcohol use. Elevated LFTs: Patient is currently asymptomatic, LFT seems improving, hepatitis screen for hepatitis a, B, C is nonreactive. Abdominal ultrasound: Liver seems fine except has hemangioma in addition CT abdomen: Also showed question of splenomegaly. Monitor LFTs out patiently. TSH mildly elevated but free T4 is normal: Monitor TSH out patiently. Patient was strongly advised to get PCP appointment as well as follow-up with Cardiology outpatient(patient already has appointment) Above management discussed with the patient in detail length he understand and in agreement with the above plan, time spent 50 minute. Health Concerns: As above. Plan of Treatment: As above. Assessment: As above.
[2023-12-18] MEDS: Apixaban 5 MG TABLET PO (13:21)
[2023-12-18 13:36] LABS: Potassium 4.3 mmol/L (3.3-5.1)
--- NOTE | 2023-12-18 16:24 | MHC.CM.PN ---
Pt medically cleared for D/C home self-care, he has arranged for his own transportation home.
== END 2023-12-18 14:07 | disposition home or self-care (01) | DRG 201 ==
LOC: HO.ED 10:46 → HO.EDOVER 16:11 → HO.IMC 17:33
PROVIDERS: Physician Assistant; Admitting Provider Internal Medicine; Emergency Provider Emergency Medicine; PCP Nurse Practitioner Family; Visit Provider Internal Medicine
DX: I48.91 Unspecified atrial fibrillation (principal); F10.939 Alcohol use, unspecified with withdrawal, unspecified; I95.1 Orthostatic hypotension; E86.0 Dehydration; D18.09 Hemangioma of other sites; K80.20 Calculus of gallbladder without cholecystitis without obstruction; Z20.822 Contact with and (suspected) exposure to COVID-19; Z87.891 Personal history of nicotine dependence
CPT/HCPCS: 36415; 71045; 74177; 76705; 80048; 80053; 80076; 81003; 82550; 82607; 82746; 83605; 83690; 83880; 84132; 84439; 84443; 84484; 85025; 85027; 85610; 86704; 86706; 86709; 86803; 87040; 87340; 87502; 87633; 87635; 93005; 93306; 99285; Q9957; Q9967

== ENCOUNTER → 2023-12-16 10:31 | Outpatient (BNV) | payer BC, SELFPAY | PROVIDERS: Emergency Provider Emergency Medicine; PCP Nurse Practitioner Family; Visit Provider Internal Medicine | DX: R94.31 Abnormal electrocardiogram [ECG] [EKG] (principal) | CPT/HCPCS: 93010 ==

== ENCOUNTER 2023-12-16 15:59 | Outpatient (BNV) | payer BC, SELFPAY | END 2023-12-17 07:00 | PROVIDERS: Admitting Provider Internal Medicine; Emergency Provider Emergency Medicine; PCP Nurse Practitioner Family; Visit Provider Internal Medicine | DX: I36.1 Nonrheumatic tricuspid (valve) insufficiency (principal); I48.91 Unspecified atrial fibrillation | CPT/HCPCS: 93306 ==

== ENCOUNTER → 2023-12-16 15:59 | Outpatient (BNV) | payer BC, SELFPAY | PROVIDERS: Admitting Provider Internal Medicine; Emergency Provider Emergency Medicine; PCP Nurse Practitioner Family; Visit Provider Internal Medicine | DX: I48.91 Unspecified atrial fibrillation (principal); E86.0 Dehydration | CPT/HCPCS: 99222; 99232; 99238 ==

== ENCOUNTER → 2023-12-16 15:59 | Outpatient (BNV) | payer BC, SELFPAY | PROVIDERS: Admitting Provider Internal Medicine; Emergency Provider Emergency Medicine; PCP Nurse Practitioner Family; Visit Provider Internal Medicine | DX: I48.91 Unspecified atrial fibrillation (principal); Z78.9 Other specified health status | CPT/HCPCS: 99223 ==

== ENCOUNTER 2024-01-11 15:23 | Outpatient (AMB) | payer BC, SELFPAY ==
--- NOTE | 2024-01-11 15:27 | A.OFFVIS_ITS ---
Intake Vital Signs 01/11/24 15:28 Height 6 ft Weight 182 lb 8.684 oz BMI 24.8 BP 102/80 Blood Pressure Location Lt brachial Position Sitting Pulse 58 Pulse Source Pulse Oximeter Intake Visit Reasons: [facility] [place] Negative Turner Required: No Allergies No Known Allergies Allergy (Verified 01/11/24 15:29) Medication List - Last Reconciled 01/11/24 by Zeinab Oliveros, ROSA-C apixaban (Eliquis) 5 mg PO BID folic acid 1 mg PO DAILY metoprolol tartrate 50 mg See Protocol PO BID thiamine mononitrate (vit B1) 100 mg PO DAILY HPI [facility] [place] HPI Details Warren is a 64-year-old male with past medical history of alcohol use who was recently seen in the emergency room for evaluation of fatigue and malaise as well as GI symptoms. An EKG confirmed new onset atrial fibrillation. He was started on metoprolol for heart rate control and Eliquis for anticoagulation. Today he reports he has been feeling well since his hospital discharge. He has not felt any heart palpitations. He has not had any bleeding issues with his Eliquis use. He continues to drink 3-4 beers each night. He denies chest discomfort at rest or with activity. No shortness of breath, PND, orthopnea or edema. He takes his medications as directed. 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 [facility]LY [facility], [facility] Medical History Daily consumption of alcohol No pertinent past medical history Sciatica Surgical History History of umbilical hernia repair H/O right knee surgery Family History Brother History of open heart surgery Social History Household Members: None Housing: House Are you a primary youth care specialist to a significant other at home: No Do you presently have visiting nurse or other home services: No Alcohol intake: current Alcohol intake frequency: 3 or more drinks per day Alcohol type: beer Patient Tobacco Use Status: Former Tobacco user Quit Date: 1979 Tobacco use type: Cigarette Years Smoked: 8 Second Hand Smoke Exposure: No Substance Use Type: Marijuana service: No Current occupational status: employed 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, 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 Review of Systems Const All systems reviewed & are unremarkable except as noted in HPI and below ENT Denies dizziness Card Denies chest pain, Denies chest pain at rest, Denies chest pain with activity, Denies rapid heart rate, Denies pedal edema, Denies edema, Denies leg edema, Denies lightheadedness, Denies palpitations, Reports dyspnea, Denies dyspnea on exertion and Denies orthopnea Resp Denies cough, Reports dyspnea and Denies dyspnea on exertion GI Denies hematochezia and Denies change in stool character Musc Denies abnormal gait, Denies limited range of motion, Denies muscle cramps, Denies muscle weakness, Denies numbness, Denies radiating pain into limb, Denies stiffness and Denies tingling Neuro Denies abnormal gait, Denies dizziness, Denies numbness and Denies tingling Endo Denies palpitations Physical Exam Vital Signs: Last Vital Signs Pulse 58 01/11/24 15:28 BP 102/80 01/11/24 15:28 BMI result Body Mass Index 24.8 Const General: cooperative, healthy appearing, comfortable and no acute distress Orientation/consciousness: patient oriented x3 Neck Neck: Yes normal visual inspection Chest Chest palpation & inspection: normal inspection of the chest Resp Effort & Inspection: normal respiratory effort Auscultation: clear to auscultation bilaterally, no crackles, no rales, no rhonchi and no wheezes Cardio Jugular venous distension: no JVD Rate: regular rate Heart sounds: S1 normal heart sound present, S2 normal heart sound present, no murmurs and no rubs Neuro General: patient oriented x3 Extrem General: Yes normal to inspection, No no pedal edema and No calf tenderness Psych Appearance: grossly normal Mental Status: mental status grossly normal Speech and movement: Normal speech and movement present Assessment & Plan Assessment & Plan (1) New onset a-fib: Code(s): I48.91 - Unspecified atrial fibrillation Plan: New finding of atrial fibrillation when presented to the ER with multiple complaints including fatigue and malaise, GI symptoms. He was treated with heart rate control using metoprolol. He was started on Eliquis for anticoagulation. He does drink alcohol daily, currently admitting to 3-4 beers. No bleeding issues reported. Echocardiogram showed EF 50-55%, left atrium moderately dilated, normal valves. Today he reports feeling well with no concerning symptoms. His pulse is irregularly irregular on examination, clinically sounds like AFib. Will order Holter monitor to evaluate heart rate and rhythm. Continue current med management. Diagnosis of atrial fibrillation, stroke risk with AFib and need for med management reviewed with him. He states understanding. Cardiology follow-up in 2 months, sooner if needed. 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
[2024-01-11 15:28] VITALS: BP 102/80; PULSE 58; BMI 24.8
== END 2024-01-11 16:14 | disposition home or self-care (01) ==
PROVIDERS: PCP Nurse Practitioner Family; Visit Provider Nurse Practitioner Family
DX: I48.91 Unspecified atrial fibrillation (principal); Z79.01 Long term (current) use of anticoagulants; Z78.9 Other specified health status
CPT/HCPCS: 99214

== ENCOUNTER → 2024-01-11 15:23 | Outpatient (BNVA) | payer BC, SELFPAY | PROVIDERS: PCP Nurse Practitioner Family; Visit Provider Nurse Practitioner Family ==

== ENCOUNTER 2024-01-19 12:17 | Inpatient (IN) | payer BC, SELFPAY ==
--- NOTE | ~2024-01-19 | XR_ITS ---
EXAMINATION: XR CHEST CLINICAL INFORMATION: Shortness of breath COMPARISON: None available. TECHNIQUE: 2 views of the chest were obtained. FINDINGS: No significant abnormality is noted involving the heart, lungs, mediastinum, bony thorax or soft tissues. XR/XR chest 2V IMPRESSION: Unremarkable chest examination.
--- NOTE | ~2024-01-19 | CT_ITS ---
EXAMINATION: CT HEAD WITHOUT CONTRAST CLINICAL INFORMATION: Syncope. On Eliquis COMPARISON: CT head January 06, 2017 TECHNIQUE: Contiguous axial imaging was performed from the skull base to vertex without intravenous administration of contrast. Coronal and sagittal reformatted images are performed at the CT scanner. [This CT examination was performed using dose optimization techniques as appropriate, variously including the following: *Automated exposure control *Adjustment of mA and/or kV according to patient size (this includes techniques or standardized protocols for targeted exams where dose is matched to indication/reason for exam; i.e. extremities or head) *Use of iterative reconstruction technique] DLP: 620 mGy-cm. FINDINGS: There is no evidence of acute intracranial hemorrhage or territorial infarction. No abnormal mass-effect or midline shift is seen. Silverio to white matter differentiation is well preserved. No extra-axial fluid collections are identified. There is generalized global volume loss. There is mild prominence of the ventricles and the sulci . There are vascular calcifications of the internal carotid arteries bilaterally. There is no osseous abnormality. The mastoid air cells and visualized portions of the paranasal sinuses are well-aerated. CT/CT head/brain wo IV con IMPRESSION: No acute intracranial pathology.
[2024-01-19 12:48] VITALS: BP 146/98; PULSE 108; RESP 18; TEMP 37; O2SAT 97; BMI 24.5
--- NOTE | 2024-01-19 12:49 | ED_ITS ---
HPI - General Adult General Chief complaint: Dyspnea Stated complaint: Out of Breath Cold Symptoms Time Seen by Provider: 01/19/24 16:29 Source: patient Mode of arrival: ambulatory Limitations: no limitations History of Present Illness HPI narrative: Patient comes to the emergency room complaining of a syncopal episode. Patient states that he was trying to get out of his couch, states that he woke up back on his couch. Patient states that he did not hurt himself since he landed on the soft surface. Patient denies any chest pain. Patient states that he was recently diagnosed with atrial fibrillation. Since then, patient has been having intermittent shortness of breath but much worse with walking up the stairs. At this time, patient denies chest pain or shortness of breath, no lightheadedness. Patient states that he has history of orthostatic hypotension, sometimes when he stands up he feels very dizzy but has never passed out. Patient states that he has not had any alcohol since he was diagnosed with AFib last month. Related Data Previous Rx's Medication Instructions Recorded apixaban 5 mg tablet (Eliquis) 5 mg PO BID #60 tabs 12/18/23 folic acid 1 mg tablet 1 mg PO DAILY #30 tabs 12/18/23 metoprolol tartrate 50 mg tablet 50 mg PO BID #60 tabs 12/18/23 thiamine mononitrate (vit B1) 100 100 mg PO DAILY #30 tabs 12/18/23 mg tablet Allergies Allergy/AdvReac Type Severity Reaction Status Date / Time No Known Allergies Allergy Verified 01/11/24 15:29 Review of Systems 2 Review of Systems: Constitutional : No Weight loss, No Fever, No Chills, No Night Sweats, No Fatigue, No Malaise ENT/Mouth : No Hearing loss, No Ear Pain, No Nasal Congestion, No Sinus Pain, No Hoarseness, No sore throat, No Rhinorrhea, No Swallowing Difficulty Eyes: No Eye Pain, No Swelling, No Redness, No Foreign Body, No Discharge, No Vision Changes Cardiovascular : No Chest Pain, No SOB, complaining of Dyspnea on Exertion, No Orthopnea, No Edema, No Palpitations Respiratory : No Cough, No Sputum, No Wheezing, No Smoke Exposure, No Dyspnea Gastrointestinal : No Nausea, No Vomiting, No Diarrhea, No Constipation, No abdominal Pain, No Hematochezia, No Melena Genitourinary : no irregular bleeding, No Dysuria, No Urinary Frequency, No Hematuria, No Urinary Incontinence, No Urgency, No Flank Pain, No Urinary Flow Changes, No Hesitancy Musculoskeletal : No joint pain, No Myalgias, No Joint Swelling Skin : No Skin Lesions, No rash Neuro : No Weakness, No Numbness, No Paresthesias, complaining of 1 episode of Loss of Consciousness, No Dizziness, No Headache Psych : No Anxiety/Panic, No Depression, No SI/HI/AH/VH, No Social Issues, Heme/Lymph: No Bruising, No Bleeding,No Lymphadenopathy Endocrine : No Polyuria, No Polydipsia, No Temperature Intolerance [facility] Past Medical History Medical History Anticoagulated Atrial fibrillation with rapid ventricular response Orthostatic hypotension Daily consumption of alcohol No pertinent past medical history Sciatica Surgical History History of umbilical hernia repair H/O right knee surgery Family History Family History Brother History of open heart surgery Social History Social History Household Members: None Housing: House Are you a primary clinical care manager to a significant other at home: No Do you presently have visiting nurse or other home services: No Alcohol intake: current Alcohol intake frequency: 3 or more drinks per day Alcohol type: beer Patient Tobacco Use Status: Former Tobacco user Quit Date: 1979 Tobacco use type: Cigarette Years Smoked: 8 Smoked in Last 30 Days: No Second Hand Smoke Exposure: No Use of substances other than those prescribed or required for medical reasons: Yes Substance Use Type: Marijuana Advance Directives: Yes Advance Directives on File: Yes Advance Directives Date on File: 12/20/23 service: No Current occupational status: employed 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 Oriented X3. No acute distress. Eyes: Pupils equal, round and reactive to light. ENT: Pharynx normal. Neck: Normal inspection. Neck supple. No lymph nodes noted. No crepitus CVS: Irregularly irregular, heart rate 95-105 Pulses normal. Normal S1 and S2 Respiratory: No respiratory distress. Breath sounds normal. No Wheezing. No rales Abdomen: Soft and nontender. No rigidity. No distention. Skin: Skin warm and dry. Normal skin color. Normal skin turgor. Extremities: No lower extremity edema. No Lacerations. No Rash Neuro: Oriented X 3. No motor deficit. No sensory deficit. Moving all extremities. No slurred speech. CN 2 through 12 grossly intact Psych: calm, cooperative, normal affect Course Course Course Narrative: Patient with recent diagnosis atrial fibrillation on metoprolol and Eliquis, history of EtOH He complains of feeling some dizziness shortness of breath and nausea over past week and has not been able to work He is speaking full sentences, breathing comfortably, respiratory rate is 16 O2 sat 97 Labs and EKG and chest x-ray are ordered This is rapid medical exam done in triage pending full evaluation and dispo by ER provider Medical Decision Making Medical Decision Making MDM Narrative: -my interpretation of EKG: Atrial fibrillation, heart rate 94, no ST segment depression or elevation, no T-wave inversion, QTC 430 -my interpretation of labs: Hematology and chemistry within normal limits, T bili chronically elevated, troponin 1. Negative -my interpretation of chest x-ray: No pulmonary edema -patient's orthostatic vitals are stable. Patient stood up gently, went into AFib with RVR. Patient was given 10 mg of Cardizem. -discussed with the patient that he should be admitted. -Dr Tomas agreed to admit the patient Differential Diagnosis Differential Diagnoses: The differential diagnosis associated with the presentation includes (AFib with RVR, orthostatic hypotension atrial flutter) Admission/Observation Consideration of admission/observation: Escalation of care including admission/observation considered Consult Healthcare Provider Management of the patient was discussed with: Hospitalist Lab Data MDM Lab Attestation statement: I reviewed the patient's lab results. 01/19/24 13:11 01/19/24 13:11 Labs: Lab Results 01/19/24 01/19/24 Range/Units 13:11 16:52 WBC 6.3 (4.8-10.8) X10*3/uL RBC 5.77 (4.60-5.80) X10*6/uL Hgb 18.3 H (14.0-18.0) g/dl Hct 52.6 H (42.0-52.0) % MCV 91.2 (80.0-98.0) fL MCH 31.7 (27.0-33.0) pg MCHC 34.8 (31.0-36.0) g/dl RDW 12.4 (11.0-16.0) % Plt Count 201 D (160-400) X10*3/uL MPV 9.1 L (9.4-12.4) fL Immature Gran % (Auto) 0.3 (0.0-0.4) % Neut % (Auto) 72.5 (45-73) % Lymph % (Auto) 17.5 L (20-40) % [place] % (Auto) 8.3 (2-11) % Eos % (Auto) 0.6 (0-4) % Baso % (Auto) 0.8 (0-2) % Lymph # (Auto) 1.1 L (1.2-4.9) X10*3/uL [place] # (Auto) 0.5 (0.1-1.2) X10*3/uL Eos # (Auto) 0.0 (0.0-0.4) X10*3/uL Baso # (Auto) 0.1 (0.0-0.2) X10*3/uL Abs Immat Gran (auto) 0.02 (0.00-0.03) X10*3/uL Absolute Neuts (auto) 4.6 (2.0-8.3) x10*3/uL Absolute Nucleated RBC 0.000 (0.0-0.012) X10*3/uL Nucleated RBC % (auto) 0.0 (0.0-0.2) /100WBC Sodium 135 (135-145) mmol/L Potassium 4.2 (3.3-5.1) mmol/L Chloride 98 (96-108) mmol/L Carbon Dioxide 27 (22-29) mmol/L Anion Gap 14 (12-20) BUN 10 (9-16) mg/dL Creatinine 1.03 (0.5-1.4) mg/dL Estim Creat Clear Calc 80.5 Estimated GFR > 60 Random Glucose 119 H (60-115) mg/dL Calcium 9.8 D (8.4-10.2) mg/dL Total Bilirubin 2.5 H (0.0-1.0) mg/dL Direct Bilirubin 0.8 H (0.0-0.5) mg/dL AST 26 (5-37) U/L ALT 15 (0-40) U/L Alkaline Phosphatase 53 (39-117) U/L Troponin I High Sens < 2.7 D < 2.7 (<3.5-35.0) ng/L Total Protein 7.0 (6.5-8.0) g/dL Albumin 4.3 (3.5-5.0) g/dL Lipase 22 (8-78) U/L TSH 4.06 H (0.32-4.0) uIU/mL Free T4 1.05 (0.71-1.85) ng/dL Ethyl Alcohol < 10 mg/dL ABG Data Attestation ABG: I personally reviewed and interpreted this ABG as follows: Independent Interpretation I performed an independent interpretation of an: Plain X-Ray Radiology Impression Discussion of test interpretation with radiology: I have reviewed the radiologist's reading. Radiologist Impression: No significant abnormality is noted involving the heart, lungs, mediastinum, bony thorax or soft tissues. XR/XR chest 2V IMPRESSION: Unremarkable chest examination. Critical Care Time Critical Care Time Critical Care Time: Yes Total Critical Care Time: 75 Attestation: I have personally provided critical care time. Time includes review of lab data, radiology results, discussion with consultants, and monitoring for potential decompensation. Intervention performed as documented. Discharge Plan Discharge Clinical Impression: Atrial fibrillation with RVR, Orthostatic hypotension Patient Disposition: Admitted As Inpatient Prescriptions: No Action metoprolol tartrate 50 mg Tablet 50 mg PO BID Qty: 60 0RF Protocol: Hold for SBP/HR < HOLD for SBP < : 90 HOLD for HR < : 60 folic acid 1 mg Tablet 1 mg PO DAILY Qty: 30 0RF thiamine mononitrate (vit B1) 100 mg Tablet 100 mg PO DAILY Qty: 30 0RF Eliquis 5 mg tablet 5 mg PO BID Qty: 60 0RF
--- NOTE | 2024-01-19 12:50 | ECG_ITS ---
Test Reason : SOB Blood Pressure : / mmHG Vent. Rate : 094 BPM Atrial Rate : 000 BPM P-R Int : 000 ms QRS Dur : 080 ms QT Int : 344 ms P-R-T Axes : 000 025 017 degrees QTc Int : 430 ms Atrial fibrillation Abnormal ECG When compared with ECG of 16-DEC-2023 11:08, T wave amplitude has increased in Lateral leads Referred By: Warren Ross Electronically Signed By:LAZARO OZUNA MD
[2024-01-19 13:16] LABS: MANUAL DIFF FLAG NO
[2024-01-19 13:17] LABS: Basophils Absolute Auto 0.1 X10*3/uL (0.0-0.2); Basophils Percent Auto 0.8 % (0-2); Eosinophils Percent Auto 0.6 % (0-4); Hematocrit 52.6 % (42.0-52.0); Hemoglobin 18.3 g/dl (14.0-18.0); Imm Gran Abs Auto 0.02 X10*3/uL (0.00-0.03); Imm Gran Pct Auto 0.3 % (0.0-0.4); Lymphocytes Absolute Auto 1.1 X10*3/uL (1.2-4.9); Lymphocytes Percent Auto 17.5 % (20-40); Mean Corpuscular HGB Conc 34.8 g/dl (31.0-36.0); Mean Corpuscular Hemoglobin 31.7 pg (27.0-33.0); Mean Corpuscular Volume 91.2 fL (80.0-98.0); Mean Platelet Volume 9.1 fL (9.4-12.4); Monocytes Absolute Auto 0.5 X10*3/uL (0.1-1.2); Monocytes Percent Auto 8.3 % (2-11); Neutrophils Absolute Auto 4.6 x10*3/uL (2.0-8.3); Neutrophils Percent Auto 72.5 % (45-73); Platelet Count 201 X10*3/uL (160-400); Red Blood Count 5.77 X10*6/uL (4.60-5.80); Red Cell Distribution Width 12.4 % (11.0-16.0); White Blood Count 6.3 X10*3/uL (4.8-10.8)
[2024-01-19 13:37] LABS: Alanine Aminotransferase 15 U/L (0-40); Albumin Level 4.3 g/dL (3.5-5.0); Alkaline Phosphatase 53 U/L (39-117); Anion Gap 14 (12-20); Aspartate Amino Transferase 26 U/L (5-37); Bilirubin Direct 0.8 mg/dL (0.0-0.5); Bilirubin Total 2.5 mg/dL (0.0-1.0); Blood Urea Nitrogen 10 mg/dL (9-16); Calcium 9.8 mg/dL (8.4-10.2); Carbon Dioxide 27 mmol/L (22-29); Chloride 98 mmol/L (96-108); Creatinine Clr Calc Pharmacy 80.5; Estimated Glomerular Filt Rate > 60; Glucose Random 119 mg/dL (60-115); Lipase 22 U/L (8-78); Potassium 4.2 mmol/L (3.3-5.1); Sodium 135 mmol/L (135-145)
[2024-01-19 13:40] LABS: Troponin-I High Sensitivity < 2.7 ng/L (<3.5-35.0)
[2024-01-19 13:52] LABS: TSH reflex Free T4 4.06 uIU/mL (0.32-4.0)
[2024-01-19 14:52] LABS: Free T4 (Free Thyroxine) 1.05 ng/dL (0.71-1.85)
[2024-01-19 16:53] VITALS: BP 146/100; PULSE 99; RESP 16; TEMP 36.9; O2SAT 96
--- NOTE | 2024-01-19 16:56 | PC.NURSE ---
a&ox4. pt hypertensive as well as sinus tachy on the monitor - 100-110 bpm. pt presents to the ED today d/t increased generalized fatigue/weakness/sob/nice. pt states sob increases w/ any activity. sx have been present x 1 month. no sob/wob noted at rest. pt able to speak in full/clear sentences w/o difficulty. respirations even and unlabored. labs obtained by tech. pt waiting to be seen by ED provider. plan of care ongoing. call dos santos placed within reach.
[2024-01-19 17:30] LABS: Troponin-I High Sensitivity < 2.7 ng/L (<3.5-35.0)
[2024-01-19 17:50] LABS: Ethanol < 10 mg/dL
[2024-01-19 18:31] VITALS: BP 124/94; BP 133/91; PULSE 109; PULSE 131
[2024-01-19 18:32] VITALS: BP 115/73; PULSE 144
--- NOTE | 2024-01-19 19:41 | PC.NURSE ---
PT laying in, continues to be in Afib, HR low 100's. Offers no complaints @ this time. Plan of care on going.
--- NOTE | 2024-01-19 20:16 | MHC.EDTECH ---
This tech was asked by provider to walk patient and get an O2 sat and HR, Patient was 96% on room air,and HR 167 on ambulation. Patient was giving a tuna sandwich,cheese stick and a mitchell yoon.
[2024-01-19 20:18] VITALS: BP 142/90; PULSE 167; RESP 20; TEMP 36.6; O2SAT 96
--- NOTE | 2024-01-19 20:36 | PHA.MEDREC ---
Pharmacy Consult ? Medication Reconciliation Pharmacy has completed the medication reconciliation. Patient reported taking his medication only a day both the eliquis and metoprolol. Informed JOSIANE Cuadra of the situation and left medications as they are suppose to be in home list. Piedad Khan, ArabellaD
--- NOTE | 2024-01-19 21:01 | P.HPHOSP_ITS ---
History of Present Illness Date of Service: 01/19/24 Attending physician on admission: Adeel Tomas Chief Complaint: nice, lightheadedness, syncope 64-year-old male with history of alcohol use disorder and recently diagnosed atrial fibrillation with recent admission from 12/16-12/18 for new onset AFib with RVR presented to the ED earlier today following a syncopal episode. He reports for the last 4 days he has been feeling generally unwell with dyspnea on exertion, lightheadedness. Reports today he went to stand from sitting and believes he syncopized for several seconds. This was unwitnessed as he does live alone. Patient had previously been drinking at least a 6 pack daily but had cut back significantly after being diagnosed with atrial fibrillation last month. His last drink was 5 days ago (Wednesday) where he consumes a 6 pack of beer. States he has not had any alcohol since as he has been feeling so unwell. Denies any fevers, chills, cough, abdominal pain, nausea, vomiting, urinary symptoms, diarrhea, chest pain. He tells me that he has only been taking the eliquis and meotprolol prescribed in the morning, not BID (states was unaware of BID dosing). No other substance use. Remote history of cigarette smoking, quit at age 20. Since arrival, pt has become progressively more tachycardic with HR 120s on admission at rest, but up to 167 with ambulation. Vitals otherwise stable. There is no leukocytosis. H/H bumped from baseline to 18.3/52.6%, likely concentrated. Renal function and electrolyte levels normal. Total bilirubin 2.5, direct bilirubin 0.8. AST 26, ALT 15. Troponin below detectable limits x2. BNP pending. TSH 4.06, free T4 1.05. Magnesium level pending. Ethyl alcohol below detectable limits. CXR unremarkable. Initial EKG shows atrial fibrillation, rate 94 with increase in T-wave amplitude in leads V4-V6, but no acute ischemia. In the ED, has been ordered for 1 L IV NS and 10 mg IV diltiazem. Patient to be admitted for further management of atrial fibrillation with RVR. Review of Systems 2 Review of Systems: General: No fevers, malaise, unintentional weight loss HEENT: No blurred vision, diplopia. No sore throat, nasal congestion, rhinorrhea, sinus pain, ear pain Cardiovascular: +lightheadedness, +syncope. No chest pain, palpitations, or leg edema Respiratory: +nice. No wheezing, cough GI: No abdominal pain, nausea, vomiting, diarrhea, constipation, melena, hematochezia : No dysuria, hematuria, increased urinary frequency, decreased urinary output MSK: No myalgia, back pain Neuro: No headaches, weakness, paresthesias Skin: No rashes or lesions [facility] Medical History Anticoagulated Atrial fibrillation with rapid ventricular response Orthostatic hypotension Daily consumption of alcohol No pertinent past medical history Sciatica Family History Brother History of open heart surgery Surgical History History of umbilical hernia repair H/O right knee surgery Social History Household Members: None Housing: House Are you a primary care companion to a significant other at home: No Do you presently have visiting nurse or other home services: No Alcohol intake: current Alcohol intake frequency: 3 or more drinks per day Alcohol type: beer Patient Tobacco Use Status: Former Tobacco user Quit Date: 1979 Tobacco use type: Cigarette Years Smoked: 8 Smoked in Last 30 Days: No Second Hand Smoke Exposure: No Use of substances other than those prescribed or required for medical reasons: Yes Substance Use Type: Marijuana Advance Directives: Yes Advance Directives on File: Yes Advance Directives Date on File: 12/20/23 service: No Current occupational status: employed 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, 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 Meds Allergies Allergy/AdvReac Type Severity Reaction Status Date / Time No Known Allergies Allergy Verified 01/11/24 15:29 Active Medications: Current Medications Acetaminophen (Acetaminophen 325 Mg Tablet) 650 mg PO Q6H PRN PRN Reason: Pain, Mild (Pain Scale 1-3) Sodium Chloride (Ns) 500 mls @ 500 mls/hr IV .Q1H TRINO Stop: 01/19/24 21:14 Ondansetron HCl (Ondansetron Hcl 4 Mg/2 Ml Vial) 4 mg IVPUSH Q8H PRN PRN Reason: Nausea and Vomiting Senna (Sennosides 8.6 Mg Tablet) 17.2 mg PO BEDTIME PRN PRN Reason: Constipation Sodium Chloride (0.9 % Sodium Chloride Flush 3 Ml Syringe) 3 ml IVFLUSH QSHIFT TRINO Physical Exam 2 Vital Signs and Narrative: Vital Signs: Last Vital Signs Temp 97.9 F 01/19/24 20:18 Pulse 167 H 01/19/24 20:18 Resp 20 01/19/24 20:18 BP 142/90 H 01/19/24 20:18 Pulse Ox 96 01/19/24 20:18 O2 Del Method Room Air 01/19/24 20:18 BMI result Body Mass Index 24.5 Constitutional - Awake and Alert, No apparent distress Eyes - PERRLA, EOMI Cardiovascular - S1S2, RRR, No edema Respiratory - Normal lung expansion, Normal respiratory effort, No respiratory distress, CTA bilaterally Gastrointestinal - NT / ND; +BS; No rebound or guarding s Extremities - no calf tenderness bilaterally, no swelling Skin - Warm/Dry Neurological - Alert & oriented x3 Results Labs 01/19/24 13:11 01/19/24 13:11 Labs: Laboratory Results - last 24 hr 01/19/24 01/19/24 13:11 16:52 MCV 91.2 MCH 31.7 MCHC 34.8 RDW 12.4 Plt Count 201 D MPV 9.1 L Immature Gran % (Auto) 0.3 Neut % (Auto) 72.5 Lymph % (Auto) 17.5 L [place] % (Auto) 8.3 Eos % (Auto) 0.6 Baso % (Auto) 0.8 Lymph # (Auto) 1.1 L [place] # (Auto) 0.5 Eos # (Auto) 0.0 Baso # (Auto) 0.1 Abs Immat Gran (auto) 0.02 Absolute Neuts (auto) 4.6 Absolute Nucleated RBC 0.000 Nucleated RBC % (auto) 0.0 Anion Gap 14 Estim Creat Clear Calc 80.5 Estimated GFR > 60 Random Glucose 119 H Calcium 9.8 D Total Bilirubin 2.5 H Direct Bilirubin 0.8 H AST 26 ALT 15 Alkaline Phosphatase 53 Troponin I High Sens < 2.7 D < 2.7 Total Protein 7.0 Albumin 4.3 Lipase 22 TSH 4.06 H Free T4 1.05 Ethyl Alcohol < 10 Imaging Radiologist's Impressions: Impressions Chest X-Ray 01/19/24 13:07 IMPRESSION: Unremarkable chest examination. Assessment and Plan (1) Atrial fibrillation with RVR: Status: Acute (2) Orthostatic hypotension: Status: Acute Plan 64-year-old male with history of alcohol use disorder and recently diagnosed atrial fibrillation with recent admission from 12/16-12/18 for new onset AFib with RVR admitted for management of afib wtih rvr. #Paroxysmal atrial fibrillation with rvr -has only been taking metoprolol and eliquis daily, not bid -Give 10mg IV dilt -resume metoprolol 50mg BID -Resume eliquis 5mg BID -cardiac diet -echo 12/2023 shows low normal LV systolic function with ef 50-55%, dilated left atrium, no valvular pathology, indeterminate diastolic dysfunction -cardiology consult #Orthostatic syncope -head ct ordered -IVF x 1 L -repeat orthostatic vs am #Alcohol use disorder -ethyl alcohol level <10. reports last drink was wednesday -will monitor on ciwa for now -continue po thiamine -addiction medicine consult dvt prophylaxis- eliquis full code pt requires inpt stay at least 2 midnights for management of afib with rvr requiring iv rate control medications, close cardiac monitoring, and expert consultation. Quality Stroke Does the patient have a stroke diagnosis?: No VTE Prior VTE?: No VTE Risk Level:: Medical - moderate - high VTE Device Contraindication: Treatment Not Indicated VTE Drug Contraindication: N/A - Med Ordered
[2024-01-19] MEDS: dilTIAZem HCL 50 MG/10 ML VIAL 10 MG IVPUSH (21:26)
[2024-01-19] MEDS: Metoprolol Tartrate 50 MG TABLET PO (21:26)
[2024-01-19] MEDS: Apixaban 5 MG TABLET PO (21:26)
[2024-01-19] MEDS: 0.9 % Sodium Chloride 500 ML IV (21:27)
[2024-01-19 21:55] LABS: B Type Natriuretic Peptide 187 pg/mL (<100)
[2024-01-19 23:22] VITALS: BP 115/72; PULSE 111; RESP 18; TEMP 36.9; O2SAT 96
[2024-01-20] VITALS (11 sets, daily range): BP systolic 92–159; BP diastolic 60–97; PULSE 70–110; RESP 12–20; TEMP 36.2–37; O2SAT 95–100
[2024-01-20] MEDS: 0.9 % Sodium Chloride Flush 3 ML SYRINGE IVFLUSH ×2 (00:15→16:14)
[2024-01-20 05:33] LABS: MANUAL DIFF FLAG NO
[2024-01-20 05:37] LABS: Basophils Absolute Auto 0.1 X10*3/uL (0.0-0.2); Eosinophils Absolute Auto 0.1 X10*3/uL (0.0-0.4); Eosinophils Percent Auto 2.4 % (0-4); Hematocrit 46.4 % (42.0-52.0); Hemoglobin 16.2 g/dl (14.0-18.0); Imm Gran Abs Auto 0.01 X10*3/uL (0.00-0.03); Imm Gran Pct Auto 0.2 % (0.0-0.4); Lymphocytes Absolute Auto 1.3 X10*3/uL (1.2-4.9); Lymphocytes Percent Auto 26.6 % (20-40); Mean Corpuscular HGB Conc 34.9 g/dl (31.0-36.0); Mean Corpuscular Hemoglobin 31.5 pg (27.0-33.0); Mean Corpuscular Volume 90.3 fL (80.0-98.0); Mean Platelet Volume 9.5 fL (9.4-12.4); Monocytes Absolute Auto 0.5 X10*3/uL (0.1-1.2); Monocytes Percent Auto 10.8 % (2-11); Neutrophils Absolute Auto 2.9 x10*3/uL (2.0-8.3); Platelet Count 159 X10*3/uL (160-400); Red Blood Count 5.14 X10*6/uL (4.60-5.80); Red Cell Distribution Width 12.4 % (11.0-16.0); White Blood Count 4.9 X10*3/uL (4.8-10.8)
[2024-01-20 05:53] LABS: Anion Gap 13 (12-20); Blood Urea Nitrogen 11 mg/dL (9-16); Calcium 9.2 mg/dL (8.4-10.2); Carbon Dioxide 26 mmol/L (22-29); Chloride 103 mmol/L (96-108); Creatinine Clr Calc Pharmacy 89.2; Estimated Glomerular Filt Rate > 60; Glucose Random 94 mg/dL (60-115); Potassium 4.3 mmol/L (3.3-5.1); Sodium 138 mmol/L (135-145)
--- NOTE | 2024-01-20 07:41 | PC.NURSE ---
patient resting quietly in bed, respirations equal and unlabored, patient VSS, skin PWD and intact. aprox 500 cc emptied from urinal. patient given breakfast, currently sitting up eating. alert and oriented x3
[2024-01-20] MEDS: Thiamine HCL 100 MG TABLET PO (08:33)
[2024-01-20] MEDS: Metoprolol Tartrate 50 MG TABLET PO (08:33)
[2024-01-20] MEDS: Apixaban 5 MG TABLET PO ×2 (08:33→19:56)
--- NOTE | 2024-01-20 09:52 | PM.CNCAR ---
History of Present Illness History of Present Illness Date of Service: 01/20/24 Requesting physician: Wilber Fernando Consult reason: other ( Syncope) Chief complaint: afib rvr Narrative: I was consulted to see Warren in cardiology consultation today for syncopal episode. Patient 64-year-old male who was recently diagnosed with atrial fibrillation when he was admitted with GI symptoms and general fatigue. Was at that time then started on metoprolol therapy for rate control and oral anticoagulation with Eliquis. He said he was only given prescription about 2 weeks and he is run out of his medications currently not taking Eliquis or metoprolol. 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 He denies any orthopnea, PND, leg edema. He did not report to work on Wednesday as he was feeling lightheaded. He said yesterday while he was at home in the morning he started feeling rapid heart rate in the back and then he got up and the next thing he remembers that he found himself on the couch she had passed out. However said his passing out episode was not very long as the commercial that was still running on TV was still running. He did not have any post loss of consciousness confusion. No bowel or bladder incontinence. He then decided to come to the hospital later in the night. He said he did not feel well all day long. He said he is cut down his alcohol intake and only drinks 2 beers a day now. He used to drink heavily before. His echocardiogram done on last admission showed low normal LV ejection fraction 50-55% with moderate left atrial enlargement. From Dr. Parker's note it seems like he would have been plan for cardioversion 4 weeks time being on anticoagulation. Although I question patient's compliance at this point in time. Patient had a follow-up in January was planned for Holter monitor but no mention of cardioversion. Patient denies any chest pain with exertion. Denies any leg swelling. Syncopal episode is new for him. Review of Systems Constitutional: Constitutional: Reports no additional constitutional complaints Eyes: Eyes: Reports no additional eye complaints Cardiovascular: Cardiovascular: Denies chest pain, Denies chest pain with activity, Reports lightheadedness, Reports Loss of Consciousness, Reports palpitations and Reports dyspnea on exertion Respiratory: Respiratory: Reports no additional respiratory complaints and Reports dyspnea on exertion Gastrointestinal: Gastrointestinal: Reports no additional gastrointestinal complaints Musculoskeletal: Musculoskeletal: Reports no additional musculoskeletal complaints Integumentary/Breasts: Skin/Breast: Reports system reviewed and no additional complaints, except as docu Neurologic: Reports system reviewed and no additional complaints, except as documented Psychiatric: Psychiatric: Reports no additional psychiatric complaints Endocrine: Endocrine: Reports no additional endocrine complaints and Reports palpitations Hematologic/Lymphatic: Hematologic/Lymphatic: Reports no additional hematologic/lymphatic complaints Allergic/Immunologic: Allergic/Immunologic: Reports no additional allergic/immunologic complaints [facility] Past Medical History Medical History Anticoagulated Atrial fibrillation with rapid ventricular response Orthostatic hypotension Daily consumption of alcohol No pertinent past medical history Sciatica Family History Family History Brother History of open heart surgery Surgical History Surgical History History of umbilical hernia repair H/O right knee surgery Social History Social History Household Members: None Housing: House Are you a primary insurance healthcare consultant to a significant other at home: No Do you presently have visiting nurse or other home services: No Alcohol intake: current Alcohol intake frequency: 3 or more drinks per day Alcohol type: beer Patient Tobacco Use Status: Former Tobacco user Quit Date: 1979 Tobacco use type: Cigarette Years Smoked: 8 Smoked in Last 30 Days: No Second Hand Smoke Exposure: No Use of substances other than those prescribed or required for medical reasons: Yes Substance Use Type: Marijuana Advance Directives: Yes Advance Directives on File: Yes Advance Directives Date on File: 12/20/23 service: No Current occupational status: employed 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, 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 Meds Allergies Allergy/AdvReac Type Severity Reaction Status Date / Time No Known Allergies Allergy Verified 01/11/24 15:29 Active Medications: Current Medications Acetaminophen (Acetaminophen 325 Mg Tablet) 650 mg PO Q6H PRN PRN Reason: Pain, Mild (Pain Scale 1-3) Apixaban (Apixaban 5 Mg Tablet) 5 mg PO BID TRINO Last Admin: 01/20/24 08:33 Dose: 5 mg Metoprolol Tartrate (Metoprolol Tartrate 50 Mg Tablet) 50 mg PO BID [facility]; Protocol Last Admin: 01/20/24 08:33 Dose: 50 mg Ondansetron HCl (Ondansetron Hcl 4 Mg/2 Ml Vial) 4 mg IVPUSH Q8H PRN PRN Reason: Nausea and Vomiting Senna (Sennosides 8.6 Mg Tablet) 17.2 mg PO BEDTIME PRN PRN Reason: Constipation Sodium Chloride (0.9 % Sodium Chloride Flush 3 Ml Syringe) 3 ml IVFLUSH QSHIFT [facility] Last Admin: 01/20/24 07:00 Dose: Not Given Thiamine HCl (Thiamine Hcl 100 Mg Tablet) 100 mg PO DAILY [facility] Last Admin: 01/20/24 08:33 Dose: 100 mg Physical Exam Vital Signs: Vital Signs: Last Vital Signs Temp 97.7 F 01/20/24 07:25 Pulse 89 01/20/24 07:25 Resp 18 01/20/24 07:25 BP 132/97 H 01/20/24 07:25 Pulse Ox 100 01/20/24 07:25 O2 Del Method Room Air 01/20/24 07:25 BMI result Body Mass Index 24.5 Const: General: cooperative, comfortable, no acute distress, well developed, alert, awake and Physically active Nutritional Appearance: well nourished and thin Orientation/consciousness: patient oriented x3 Limitations: no limitations HEENT: Head: Yes normocephalic and Yes atraumatic Neck: Neck: Yes trachea midline, Yes supple and Yes no JVD Resp: Effort & Inspection: normal respiratory effort Auscultation: clear to auscultation bilaterally Cardio: Jugular venous distension: no JVD Rate: tachycardic Rhythm: abnormal rhythm irregularly irregular Heart sounds: S1 normal heart sound present, S2 normal heart sound present, no click, no gallops, no murmurs and no rubs GI: Auscultation: normal bowel sounds Skin: General skin exam: no rashes or lesions noted Neuro: General: patient oriented x3 and no focal motor deficits Extrem: General: Yes no clubbing, cyanosis or edema Objective Labs and Meds 01/20/24 04:59 01/20/24 04:59 Lab results: Laboratory Results - last 24 hr 03/13/24 03/13/24 03/13/24 13:11 16:52 19:51 WBC 6.3 RBC 5.77 Hgb 18.3 H Hct 52.6 H MCV 91.2 MCH 31.7 MCHC 34.8 RDW 12.4 Plt Count 201 D MPV 9.1 L Immature Gran % (Auto) 0.3 Neut % (Auto) 72.5 Lymph % (Auto) 17.5 L [place] % (Auto) 8.3 Eos % (Auto) 0.6 Baso % (Auto) 0.8 Lymph # (Auto) 1.1 L [place] # (Auto) 0.5 Eos # (Auto) 0.0 Baso # (Auto) 0.1 Abs Immat Gran (auto) 0.02 Absolute Neuts (auto) 4.6 Absolute Nucleated RBC 0.000 Nucleated RBC % (auto) 0.0 Sodium 135 Potassium 4.2 Chloride 98 Carbon Dioxide 27 Anion Gap 14 BUN 10 Creatinine 1.03 Estim Creat Clear Calc 80.5 Estimated GFR > 60 Random Glucose 119 H Calcium 9.8 D Magnesium 2.0 Total Bilirubin 2.5 H Direct Bilirubin 0.8 H AST 26 ALT 15 Alkaline Phosphatase 53 Troponin I High Sens < 2.7 D < 2.7 B-Natriuretic Peptide 187 H Total Protein 7.0 Albumin 4.3 Lipase 22 TSH 4.06 H Free T4 1.05 Ethyl Alcohol < 10 01/20/24 04:59 WBC 4.9 RBC 5.14 Hgb 16.2 Hct 46.4 MCV 90.3 MCH 31.5 MCHC 34.9 RDW 12.4 Plt Count 159 L MPV 9.5 Immature Gran % (Auto) 0.2 Neut % (Auto) 59.0 Lymph % (Auto) 26.6 [place] % (Auto) 10.8 Eos % (Auto) 2.4 Baso % (Auto) 1.0 Lymph # (Auto) 1.3 [place] # (Auto) 0.5 Eos # (Auto) 0.1 Baso # (Auto) 0.1 Abs Immat Gran (auto) 0.01 Absolute Neuts (auto) 2.9 Absolute Nucleated RBC 0.000 Nucleated RBC % (auto) 0.0 Sodium 138 Potassium 4.3 Chloride 103 Carbon Dioxide 26 Anion Gap 13 BUN 11 Creatinine 0.93 Estim Creat Clear Calc 89.2 Estimated GFR > 60 Random Glucose 94 Calcium 9.2 D Magnesium Total Bilirubin Direct Bilirubin AST ALT Alkaline Phosphatase Troponin I High Sens B-Natriuretic Peptide Total Protein Albumin Lipase TSH Free T4 Ethyl Alcohol EKG shows atrial fibrillation rapid ventricular response Imaging Radiologist's impression: Impressions Chest X-Ray 01/19/24 13:07 IMPRESSION: Unremarkable chest examination. Head CT 01/19/24 22:09 IMPRESSION: No acute intracranial pathology. Assessment and Plan (1) Syncope: Status: Acute syncopal episode in this middle-aged man of unclear etiology. There is no obvious bleeding. 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 Although clearly appears to be orthostatic in nature. Unclear whether this was related to rapid atrial fibrillation contributing to his syncopal episode and low cardiac output. I do not clearly see orthostatic vitals performed in the chart. He has been given IV fluids. I will repeat orthostatic vitals. Continue push p.o. fluids. Strongly recommended him to avoid alcohol use in the future. Importance of compliance with medication was discussed. (2) Atrial fibrillation with RVR: Status: Acute Atrial fibrillation rapid ventricular response related to patient not taking his rate control medications appropriately at home. Said he ran out of medications as well as Eliquis. Plan during last hospitalization was outpatient cardioversion 3-4 weeks although this was not pursued. Patient now has not been taking his oral anticoagulation therapy and has persistent atrial fibrillation for the last month or more. Therefore at this point time I would pursue rate control with metoprolol 25 mg q.6 hours. Resume his Eliquis 5 mg b.i.d.. Education to be provided. He will be admitted and continued on full disclosure cardiac monitoring. If his rate remains difficult control may require GARY guided cardioversion. Please keep him NPO past midnight Will follow with you. Procedures Date of Service Date of Service: 01/20/24
--- NOTE | 2024-01-20 13:26 | HO.PM.IMPN ---
Subjective Subjective Date of Service: 01/20/24 Interval History: f/u on AFIB with RVR, syncope due to orthostatic hypotension HR is better controlled, but in general remains high Physical Exam Vital Signs: Vital Signs: Last Vital Signs Temp 97.8 F 01/20/24 12:56 Pulse 101 H 01/20/24 12:56 Resp 20 01/20/24 12:56 BP 159/86 H 01/20/24 12:56 Pulse Ox 97 01/20/24 12:56 O2 Del Method Room Air 01/20/24 12:56 BMI result Body Mass Index 24.5 General: AO X 3, no acute distress Resp: CTA bilateral CVS: S1,S2, iregular iregular GI: +BS, NT, no distention Skin: No rash Neuro: motor grossly intact Psych: appropriate affect Objective Data Active Medications Acetaminophen (Acetaminophen 325 Mg Tablet) 650 mg PO Q6H PRN PRN Reason: Pain, Mild (Pain Scale 1-3) Apixaban (Apixaban 5 Mg Tablet) 5 mg PO BID [facility] Last Admin: 01/20/24 08:33 Dose: 5 mg Documented By: ELIE Metoprolol Tartrate (Metoprolol Tartrate 25 Mg Tablet) 25 mg PO Q6H [facility]; Protocol Ondansetron HCl (Ondansetron Hcl 4 Mg/2 Ml Vial) 4 mg IVPUSH Q8H PRN PRN Reason: Nausea and Vomiting Senna (Sennosides 8.6 Mg Tablet) 17.2 mg PO BEDTIME PRN PRN Reason: Constipation Sodium Chloride (0.9 % Sodium Chloride Flush 3 Ml Syringe) 3 ml IVFLUSH QSHIFT [facility] Last Admin: 01/20/24 07:00 Dose: Not Given Documented By: ELIE Non-Admin Reason: Patient Asleep Thiamine HCl (Thiamine Hcl 100 Mg Tablet) 100 mg PO DAILY [facility] Last Admin: 01/20/24 08:33 Dose: 100 mg Documented By: ELIE Labs 01/20/24 04:59 01/20/24 04:59 Labs: Laboratory Results - last 24 hr 01/19/24 01/19/24 01/19/24 13:11 16:52 19:51 MCV MCH MCHC RDW Plt Count MPV Immature Gran % (Auto) Neut % (Auto) Lymph % (Auto) [place] % (Auto) Eos % (Auto) Baso % (Auto) Lymph # (Auto) [place] # (Auto) Eos # (Auto) Baso # (Auto) Abs Immat Gran (auto) Absolute Neuts (auto) Absolute Nucleated RBC Nucleated RBC % (auto) Anion Gap 14 Estim Creat Clear Calc 80.5 Estimated GFR > 60 Random Glucose 119 H Calcium 9.8 D Magnesium 2.0 Total Bilirubin 2.5 H Direct Bilirubin 0.8 H AST 26 ALT 15 Alkaline Phosphatase 53 Troponin I High Sens < 2.7 D < 2.7 B-Natriuretic Peptide 187 H Total Protein 7.0 Albumin 4.3 Lipase 22 TSH 4.06 H Free T4 1.05 Ethyl Alcohol < 10 01/20/24 04:59 MCV 90.3 MCH 31.5 MCHC 34.9 RDW 12.4 Plt Count 159 L MPV 9.5 Immature Gran % (Auto) 0.2 Neut % (Auto) 59.0 Lymph % (Auto) 26.6 [place] % (Auto) 10.8 Eos % (Auto) 2.4 Baso % (Auto) 1.0 Lymph # (Auto) 1.3 [place] # (Auto) 0.5 Eos # (Auto) 0.1 Baso # (Auto) 0.1 Abs Immat Gran (auto) 0.01 Absolute Neuts (auto) 2.9 Absolute Nucleated RBC 0.000 Nucleated RBC % (auto) 0.0 Anion Gap 13 Estim Creat Clear Calc 89.2 Estimated GFR > 60 Random Glucose 94 Calcium 9.2 D Magnesium Total Bilirubin Direct Bilirubin AST ALT Alkaline Phosphatase Troponin I High Sens B-Natriuretic Peptide Total Protein Albumin Lipase TSH Free T4 Ethyl Alcohol Assessment and Plan (1) Syncope: Status: Acute (2) Orthostatic hypotension: Status: Acute (3) Atrial fibrillation with RVR: Status: Acute Plan 64-year-old male with history of alcohol use disorder and recently diagnosed atrial fibrillation with recent admission from 12/16-12/18 for new onset AFib with RVR admitted for management of afib [facility] rvr. #Paroxysmal atrial fibrillation with rvr -has only been taking metoprolol and eliquis daily, not bid or not taking at all -continue metoprolol at 25 q6 -continue eliquis 5mg BID -echo 12/2023 shows low normal LV systolic function with ef 50-55%, dilated left atrium, no valvular pathology, indeterminate diastolic dysfunction -cardiology following and may need GARY/cardioversion if rate remains uncontrolled. #Orthostatic syncope -head ct negative -IVF -repeat orthostatic vitals #Alcohol use disorder -ethyl alcohol level <10. reports last drink was wednesday - monitor on ciwa for now -continue po thiamine -addiction medicine consult dvt prophylaxis- eliquis full code Need for inpatient: AFIB with with RVR that need continuing cardiac monitoring, med adjustement and potential need for cardioversion Quality Stroke Does the patient have a stroke diagnosis?: No VTE Prior VTE?: No VTE Risk Level:: Medical - moderate - high VTE Device Contraindication: Treatment Not Indicated VTE Drug Contraindication: N/A - Med Ordered
--- NOTE | 2024-01-20 13:46 | MHC.CM.PN ---
Pt lives alone, is independent, no home health services or medical equipment. He does not have a PCP, brochure given to him. HCP on file, and confirmed, naming Laura and Christy. Pt may need assistance to get home at DC. He said he was here a few months ago for his heart, took the shuttle home. CM to follow and assist with DC planning.
[2024-01-20] MEDS: Metoprolol Tartrate 25 MG TABLET PO ×2 (13:51→19:56)
[2024-01-20] MEDS: Amiodarone HCL 200 MG TABLET 400 MG PO (17:10)
[2024-01-21 02:37] VITALS: BP 108/72; PULSE 76
[2024-01-21] MEDS: Metoprolol Tartrate 25 MG TABLET PO (02:39)
[2024-01-21] MEDS: 0.9 % Sodium Chloride Flush 3 ML SYRINGE IVFLUSH ×2 (02:40→09:08)
[2024-01-21 04:00] VITALS: BP 119/85; PULSE 75; RESP 18; TEMP 36.2; O2SAT 97
[2024-01-21 07:24] VITALS: BP 137/87; PULSE 86; RESP 84; TEMP 36.1; O2SAT 97
[2024-01-21] MEDS: Amiodarone HCL 200 MG TABLET 400 MG PO (09:06)
[2024-01-21] MEDS: Thiamine HCL 100 MG TABLET PO (09:06)
[2024-01-21] MEDS: Metoprolol Tartrate 50 MG TABLET PO ×3 (09:07→21:12)
[2024-01-21] MEDS: Apixaban 5 MG TABLET PO ×2 (09:07→21:12)
--- NOTE | 2024-01-21 09:57 | PM.PNCARD ---
Subjective Subjective Date of Service: 01/21/24 Principal diagnosis: Atrial fibrillation, syncope Interval history: Patient with at rest and supine in heart rate in the 80s and 90s but when he went to the bathroom the heart rate went up to 170 beats per minute. He had no symptoms. No lightheadedness. Blood pressure supine is okay. Patient denies any chest pain or palpitations. Review of Systems Constitutional: Reports no additional constitutional complaints Cardiovascular: Reports no additional cardiovascular complaints Respiratory: Reports no additional respiratory complaints Genitourinary: Reports no additional male genitourinary complaints Reports system reviewed and no additional complaints, except as documented Psychiatric: Reports no additional psychiatric complaints Physical Exam Vital Signs: Last Vital Signs Temp 96.9 F 01/21/24 07:24 Pulse 86 01/21/24 07:24 Resp 84 H 01/21/24 07:24 BP 137/87 01/21/24 07:24 Pulse Ox 97 01/21/24 07:24 O2 Del Method Room Air 01/21/24 04:00 BMI result Body Mass Index 24.5 Const General: comfortable, alert and awake Nutritional Appearance: thin Neck Neck: Yes trachea midline, Yes supple and Yes no JVD Resp Effort & Inspection: normal respiratory effort Auscultation: clear to auscultation bilaterally Cardio Jugular venous distension: no JVD Rhythm: abnormal rhythm irregularly irregular Heart sounds: S1 normal heart sound present, S2 normal heart sound present, no click, no gallops and no murmurs GI Auscultation: normal bowel sounds Extrem General: Yes no clubbing, cyanosis or edema Objective Labs and Meds 01/20/24 04:59 01/20/24 04:59 Progress Note: A&P Assessment and plan (1) Atrial fibrillation with RVR: Status: Acute Assessment and Plan: Atrial fibrillation rapid ventricular response with borderline rate control. Will increase metoprolol to 50 mg q.6 hours. I would avoid antiarrhythmic drug therapy at this point time to potentially not convert him back without adequate anticoagulation. Also given digoxin for rate control. Continue full oral anticoagulation Eliquis. Discussed with patient importance of compliance with medications. He understands and agrees. (2) Syncope: Status: Acute Assessment and Plan: Syncope which appears to be orthostatic in nature probably from relative hypovolemia. Recommend 100 cc an hour till tomorrow morning fluid bolus which will help with his orthostatic symptoms as well as with rate control for atrial fibrillation. Continue to monitor him overnight in the hospital. Will follow with you Time Spent With Patient Time: Total time managing care of this patient today ____ minutes. Progress Note: Quality Stroke Does the patient have a stroke diagnosis?: No Procedures Date of Service Date of Service: 01/21/24
--- NOTE | 2024-01-21 11:27 | HO.PM.IMPN ---
Subjective Subjective Date of Service: 01/21/24 Physical Exam Vital Signs: Vital Signs: Last Vital Signs Temp 96.9 F 01/21/24 07:24 Pulse 86 01/21/24 07:24 Resp 84 H 01/21/24 07:24 BP 137/87 01/21/24 07:24 Pulse Ox 97 01/21/24 07:24 O2 Del Method Room Air 01/21/24 04:00 BMI result Body Mass Index 24.5 Objective Data Active Medications Acetaminophen (Acetaminophen 325 Mg Tablet) 650 mg PO Q6H PRN PRN Reason: Pain, Mild (Pain Scale 1-3) Apixaban (Apixaban 5 Mg Tablet) 5 mg PO BID [facility] Last Admin: 01/21/24 09:07 Dose: 5 mg Documented By: DOUGLAS Sodium Chloride (Ns) 1,000 mls @ 100 mls/hr IVCONT .Q10H TRINO Metoprolol Tartrate (Metoprolol Tartrate 50 Mg Tablet) 50 mg PO Q6H [facility]; Protocol Last Admin: 01/21/24 11:15 Dose: Not Given Documented By: DOUGLAS Non-Admin Reason: Previously Administered Ondansetron HCl (Ondansetron Hcl 4 Mg/2 Ml Vial) 4 mg IVPUSH Q8H PRN PRN Reason: Nausea and Vomiting Senna (Sennosides 8.6 Mg Tablet) 17.2 mg PO BEDTIME PRN PRN Reason: Constipation Sodium Chloride (0.9 % Sodium Chloride Flush 3 Ml Syringe) 3 ml IVFLUSH QSHIFT [facility] Last Admin: 01/21/24 09:08 Dose: 3 ml Documented By: DOUGLAS Thiamine HCl (Thiamine Hcl 100 Mg Tablet) 100 mg PO DAILY [facility] Last Admin: 01/21/24 09:06 Dose: 100 mg Documented By: DOUGLAS Labs 01/20/24 04:59 01/20/24 04:59 Assessment and Plan (1) Syncope: Status: Acute (2) Orthostatic hypotension: Status: Acute (3) Atrial fibrillation with RVR: Status: Acute Plan 64-year-old male with history of alcohol use disorder and recently diagnosed atrial fibrillation with recent admission from 12/16-12/18 for new onset AFib with RVR admitted for management of afib [facility] rvr. #Paroxysmal atrial fibrillation with rvr -has only been taking metoprolol and eliquis daily, not bid or not taking at all -continue metoprolol at 50 q6 -continue eliquis 5mg BID -echo 12/2023 shows low normal LV systolic function with ef 50-55%, dilated left atrium, no valvular pathology, indeterminate diastolic dysfunction -cardiology following and may need GARY/cardioversion if rate remains uncontrolled. #Orthostatic syncope -head ct negative -IVF -repeat orthostatic vitals #Alcohol use disorder -ethyl alcohol level <10. reports last drink was wednesday - monitor on ciwa for now -continue po thiamine -addiction medicine consult dvt prophylaxis- eliquis full code Need for inpatient: AFIB with with RVR that need continuing cardiac monitoring, med adjustement and potential need for cardioversion Quality Stroke Does the patient have a stroke diagnosis?: No VTE Prior VTE?: No VTE Risk Level:: Medical - moderate - high VTE Device Contraindication: Treatment Not Indicated VTE Drug Contraindication: N/A - Med Ordered
[2024-01-21 11:38] VITALS: BP 122/79; PULSE 80; RESP 20; TEMP 36; O2SAT 99
[2024-01-21] MEDS: 0.9 % Sodium Chloride 1,000 ML 100 ML IVCONT ×2 (12:00→21:13)
--- NOTE | 2024-01-21 14:15 | MHC.CM.PN ---
EMR reviewed and per MD rounds, pt is not medically cleared for D/C due to management of A-fib with RVR.
[2024-01-21 15:14] VITALS: BP 112/77; PULSE 78; RESP 17; TEMP 36.6; O2SAT 97
[2024-01-21 19:44] VITALS: BP 127/86; PULSE 77; RESP 20; TEMP 36.2; O2SAT 98
[2024-01-21] MEDS: Melatonin 3 MG TABLET 6 MG PO (21:12)
[2024-01-22] VITALS: BP 114/80; PULSE 74; RESP 20; TEMP 36.4; O2SAT 96
[2024-01-22 03:35] VITALS: BP 102/64; PULSE 70; RESP 20; TEMP 36.2; O2SAT 98
[2024-01-22] MEDS: 0.9 % Sodium Chloride Flush 3 ML SYRINGE IVFLUSH (05:09)
[2024-01-22] MEDS: Metoprolol Tartrate 50 MG TABLET PO ×2 (05:09→11:24)
[2024-01-22] MEDS: 0.9 % Sodium Chloride 1,000 ML 100 ML IVCONT (05:19)
[2024-01-22 07:30] VITALS: BP 130/88; PULSE 84; RESP 20; TEMP 36.4; O2SAT 99
[2024-01-22] MEDS: Thiamine HCL 100 MG TABLET PO (08:20)
[2024-01-22] MEDS: Apixaban 5 MG TABLET PO (08:20)
--- NOTE | 2024-01-22 11:02 | P.PNCA_ITS ---
Subjective Subjective Date of Service: 01/22/24 Principal diagnosis: Atrial fibrillation, syncope Interval history: Patient is feeling well. Heart rate is much better control. Remains in atrial fibrillation. Review of Systems Constitutional: Reports no additional constitutional complaints Physical Exam Vital Signs: Last Vital Signs Temp 97.5 F 01/22/24 07:30 Pulse 84 01/22/24 07:30 Resp 20 01/22/24 07:30 BP 130/88 01/22/24 07:30 Pulse Ox 99 01/22/24 07:30 O2 Del Method Room Air 01/22/24 07:30 BMI result Body Mass Index 24.5 Const General: comfortable, alert and awake Nutritional Appearance: thin Neck Neck: Yes trachea midline, Yes supple and Yes no JVD Resp Effort & Inspection: normal respiratory effort Auscultation: clear to auscultation bilaterally Cardio Jugular venous distension: no JVD Rhythm: abnormal rhythm irregularly irregular Heart sounds: S1 normal heart sound present, S2 normal heart sound present, no click, no gallops and no murmurs GI Auscultation: normal bowel sounds Extrem General: Yes no clubbing, cyanosis or edema Objective Labs and Meds 01/20/24 04:59 01/20/24 04:59 Progress Note: A&P Assessment and plan (1) Atrial fibrillation with RVR: Status: Acute Assessment and Plan: Atrial fibrillation rapid ventricular response due to noncompliance with medications. Importance of compliance with medication was discussed. Discharged on metoprolol 100 mg b.i.d. and Eliquis. Will set him up for follow- up in 10 days in the office and set him up for outpatient cardioversion if he is compliant in 3-4 weeks. Complete avoidance of alcohol was discussed. He agrees. (2) Syncope: Status: Acute Assessment and Plan: Syncopal episode which was very transient and appears to be orthostatic in nature. Could be related to relative hypovolemia. He has been hydrated. Clinically doing well. Please check orthostatic blood pressure today before discharge. If negative can be discharged home later today. Advised to maintain adequate hydration. Avoidance of alcohol was discussed. Will follow up in the clinic in 7-10 days. Thank you for allowing me to partake in her care Time Spent With Patient Time: Total time managing care of this patient today ____ minutes. Progress Note: Quality Stroke Does the patient have a stroke diagnosis?: No Procedures Date of Service Date of Service: 01/22/24
[2024-01-22 11:04] VITALS: BP 116/84; BP 127/90; PULSE 84; PULSE 85; RESP 19; TEMP 36.4; O2SAT 100
--- NOTE | 2024-01-22 11:08 | P.DS_ITS ---
DS: Providers Provider Date of Service: 01/22/24 Date of admission: 01/19/24 20:54 Primary care physician: None Physician Consults: 01/19/24 20:54 Consult to Cardiology Routine Consulting Provider: [facility] [place] [facility] Reason for consultation: afib rvr DS: Diagnosis Discharge Diagnosis (1) Atrial fibrillation with RVR: Status: Acute (2) Syncope: Status: Acute DS: Summary Hospital Course Hospital Course: admission hpi Chief Complaint: nice, lightheadedness, syncope 64-year-old male with history of alcohol use disorder and recently diagnosed at [facility] with recent admission from 12/16-12/18 for new onset AFib with RVR presented to the ED earlier today following a syncopal episode. He reports for the last 4 days he has been feeling generally unwell with dyspnea on exertion, lightheadedness. Reports today he went to stand from sitting and believes he syncopized for several seconds. This was unwitnessed as he does live alone. Patient had previously been drinking at least a 6 pack daily but had cut back significantly after being diagnosed with atrial fibrillation last month. His last drink was 5 days ago (Wednesday) where he consumes a 6 pack of beer. States he has not had any alcohol since as he has been feeling so unwell. Denies any fevers, chills, cough, abdominal pain, nausea, vomiting, urinary symptoms, diarrhea, chest pain. He tells me that he has only been taking the eliquis and meotprolol prescribed in the morning, not BID ([facility] was unaware of BID dosing). No other substance use. Remote history of cigarette smoking, quit at age 20. Since arrival, pt has become progressively more tachycardic with HR 120s on admission at rest, but up to 167 with ambulation. Vitals otherwise stable. There is no leukocytosis. H/H bumped from baseline to 18.3/52.6%, likely concentrated. Renal function and electrolyte levels normal. Total bilirubin 2.5, direct bilirubin 0.8. AST 26, ALT 15. Troponin below detectable limits x2. BNP pending. TSH 4.06, free T4 1.05. Magnesium level pending. Ethyl alcohol below detectable limits. CXR unremarkable. Initial EKG shows atrial fibrillation, rate 94 with increase in T-wave amplitude in leads V4-V6, but no acute ischemia. In the ED, has been ordered for 1 L IV NS and 10 mg IV diltiazem. Patient to be admitted for further management of atrial fibrillation with RVR. Hospital course: e. Patient presented with dizziness and had a syncopal episode. He was found to be in atrial fibrillation (AFib) with rapid ventricular response (RVR). He had been taking metoprolol only once daily, rather than the prescribed twice daily dose. Additionally, orthostatic hypotension was noted. Upon admission, he received aggressive hydration with intravenous fluid and IV cardizem to control heart rate. His usual dose of metoprolol was restarted. He was evaluated by a freight weigher (Dr. Merritt) who guided his treatment, recommending titration of metoprolol to 50mg every 6 hours (q6h) and continuation of IV fluids. Orthostic Hypotension has resolved, his heart rate is controlled in the 80s and he will be discharged with Metoprolol 100 mg twice daily and to resume eliquis at 5 mg twice daily. lThe orthostatic hypotension was likely related to dehydration, which may have been accentuated by alcohol use. He is strongly advised to stop drinking alcoh ol. He was monitored under [facility] and did not go into alcohol withdrawal Final diagnoses: Orthostatic hypotension syncope Paroxysmal AFIB with RVR Alcohol dependency Time Attestation Discharge Coordination Time (in mins): 40 Quality: Safe Use of Opioids Does Pt have an Active Cancer Diagnosis on the Problem List?: No Quality: Stroke Does the patient have a stroke diagnosis?: No Physical Exam Vital Signs: Vital Signs: Last Vital Signs Temp 97.5 F 01/22/24 11:04 Pulse 84 01/22/24 11:04 Resp 19 01/22/24 11:04 BP 127/90 H 01/22/24 11:04 Pulse Ox 100 01/22/24 11:04 O2 Del Method Room Air 01/22/24 11:04 BMI result Body Mass Index 24.5 General: AO X 3, no acute distress Resp: CTA bilateral CVS: S1,S2, iregular iregular GI: +BS, NT, no distention Skin: No rash Neuro: motor grossly intact Psych: appropriate affect Discharge Plan Discharge Anticipated Discharge Date/Time: 01/21/24 07:26 Patient Disposition: Home, Self-Care Discharge Diagnosis: atrial fibrillation with RVR, orthostatic hypotension syncope Referrals: Physician,None [Primary Care Provider] - 1 Week Discharge Medications: New metoprolol tartrate 100 mg tablet 100 mg PO BID Qty: 60 2RF Continued thiamine mononitrate (vit B1) 100 mg Tablet 100 mg PO DAILY Qty: 30 0RF Eliquis 5 mg tablet 5 mg PO BID Qty: 60 0RF Discontinued metoprolol tartrate 50 mg Tablet 50 mg PO BID Qty: 60 0RF Protocol: Hold for SBP/HR < HOLD for SBP < : 90 HOLD for HR < : 60 Discharge Orders: Discharge Order (Routine); Ordered 01/22/24 Ordered By: Wilber Fernando Diet: Advance to usual diet Activity on Discharge: As tolerated Stand Alone Forms: Patient Portal Discharge page, Work/School Release Care Plan Goals: Recovery from syncope and control of AFIB Health Concerns: Orthostatic syncope AFIB with RVR Plan of Treatment: Take Metoprolol 100 mg twice daily Take Eliquis 5 mg twice daily follow up with the heart doctor and your primary care provider, call for peggy ointment Stop drinking alcohol Assessment: see above Patient Instructions: Apixaban (By mouth)
[2024-01-22 11:09] VITALS: BP 120/91; PULSE 88
[2024-01-22 11:14] VITALS: BP 119/89; PULSE 92
--- NOTE | 2024-01-22 12:10 | MHC.CM.PN ---
PT MEDICALLY CLEARED FOR DC HOME SELF-CARE, PT PROVIDED W/[facility] LIST OF PCP'S PER REQUEST, PT'S RN ALSO REPORTS PT WILL BOOK HEATHER HIMSELF.
== END 2024-01-22 13:00 | disposition home or self-care (01) | DRG 201 ==
LOC: HO.ED 20:21 → HO.EDOVER 21:15 → HO.IMC 01-20 15:16
PROVIDERS: Physician Assistant Medical; Admitting Provider Physician Assistant; Emergency Provider Emergency Medicine; Visit Provider Internal Medicine
DX: I48.0 Paroxysmal atrial fibrillation (principal); E86.0 Dehydration; E86.1 Hypovolemia; F10.20 Alcohol dependence, uncomplicated; I95.1 Orthostatic hypotension; Z87.891 Personal history of nicotine dependence; T45.516A Underdosing of anticoagulants, initial encounter; T44.7X6A Underdosing of beta-adrenoreceptor antagonists, initial encounter; Z79.01 Long term (current) use of anticoagulants; Z79.899 Other long term (current) drug therapy
CPT/HCPCS: 36415; 70450; 71046; 80048; 80076; 80307; 83690; 83735; 83880; 84439; 84443; 84484; 85025; 93005; 99285

== ENCOUNTER → 2024-01-19 20:54 | Outpatient (BNV) | payer BC, SELFPAY | PROVIDERS: Admitting Provider Physician Assistant; Emergency Provider Emergency Medicine; Visit Provider Physician Assistant | DX: I48.91 Unspecified atrial fibrillation (principal); R55 Syncope and collapse | CPT/HCPCS: 99223; 99232; 99239 ==

== ENCOUNTER → 2024-01-19 20:54 | Outpatient (BNV) | payer BC, SELFPAY | PROVIDERS: Admitting Provider Physician Assistant; Emergency Provider Emergency Medicine; Visit Provider Internal Medicine Cardiovascular Disease | DX: R55 Syncope and collapse (principal); I48.91 Unspecified atrial fibrillation | CPT/HCPCS: 93010; 99222; 99233 ==

== ENCOUNTER 2024-02-07 12:09 | Emergency (ER) | payer BC, SELFPAY ==
--- NOTE | ~2024-02-07 | XR_ITS ---
EXAMINATION: XR CHEST CLINICAL INFORMATION: Syncope, dyspnea COMPARISON: 01/19/2024 TECHNIQUE: 2 views of the chest were obtained. FINDINGS: Lungs are well-inflated. There appears to be minimal linear opacity of atelectasis in the inferior lingula adjacent to the paracardiac fat pad.. Trachea is midline in position. No interstitial disease, consolidation or mass. No pleural effusion or pneumothorax. Cardiac silhouette and pulmonary vessels are normal in size. The mediastinum and norm have normal contour. The visualized bones and upper abdomen are unremarkable. XR/XR chest 2V IMPRESSION: No acute cardiopulmonary abnormality.
--- NOTE | 2024-02-07 12:10 | ECG_ITS ---
Test Reason : CP Blood Pressure : / mmHG Vent. Rate : 117 BPM Atrial Rate : 000 BPM P-R Int : 000 ms QRS Dur : 080 ms QT Int : 278 ms P-R-T Axes : 000 020 010 degrees QTc Int : 387 ms Atrial fibrillation with rapid ventricular response Nonspecific ST abnormality Abnormal ECG When compared with ECG of 19-JAN-2024 13:14, No significant change was found Referred By: Generic ED Physician Electronically Signed By:LAZARO OZUNA MD
--- NOTE | 2024-02-07 12:17 | ED.GENADULT ---
HPI - General Adult General Chief complaint: General Medical Stated complaint: Chest pain Time Seen by Provider: 02/07/24 16:03 History of Present Illness HPI narrative: Patient is a 64-year-old male with a history of atrial fibrillation. History of EtOH in the past. Presented today with having sudden episode of palpitation it feels like his heart was going irregular and fast. He felt lightheaded at that time. Had some chest tightness. Patient denies any history of diabetes. No history of SC. positive history of atrial fibrillation in the past. Had echo done recently shows an EF of 55%. He has been compliant with his medication including Eliquis and metoprolol. Denies any bloody stool. Denies any NSAID use. Denies any abdominal pain. Patient is from home. Related Data Previous Rx's Medication Instructions Recorded apixaban 5 mg tablet (Eliquis) 5 mg PO BID #60 tabs 12/18/23 thiamine mononitrate (vit B1) 100 100 mg PO DAILY #30 tabs 12/18/23 mg tablet metoprolol tartrate 100 mg tablet 100 mg PO BID #60 tabs 01/22/24 Allergies Allergy/AdvReac Type Severity Reaction Status Date / Time No Known Allergies Allergy Verified 01/11/24 15:29 Review of Systems Review of Systems: Positive palpitation Yes all other systems are reviewed and are negative PMFSH Past Medical History Attestation statement: The following information was validated with the patient. Medical History Anticoagulated Atrial fibrillation with rapid ventricular response Orthostatic hypotension Daily consumption of alcohol No pertinent past medical history Sciatica Surgical History History of umbilical hernia repair H/O right knee surgery Family History Family History Brother History of open heart surgery Social History Social History Household Members: None Housing: House Are you a primary care nurse rn to a significant other at home: No Do you presently have visiting nurse or other home services: No Alcohol intake: current Alcohol intake frequency: 0-2 drinks per day Alcohol type: beer Patient Tobacco Use Status: Former Tobacco user Quit Date: 1979 Tobacco use type: Cigarette Years Smoked: 8 Smoked in Last 30 Days: No Second Hand Smoke Exposure: No Use of substances other than those prescribed or required for medical reasons: Yes Substance Use Type: Marijuana Advance Directives: Yes Advance Directives on File: Yes Advance Directives Date on File: 12/20/23 service: No Current occupational status: employed 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 Oriented X3. No acute distress. Eyes: Pupils equal, round and reactive to light. ENT: Pharynx normal. Neck: Normal inspection. Neck supple. No lymph nodes noted. No crepitus CVS: Irregularly irregular slightly tachycardic Pulses normal. Normal S1 and S2 Respiratory: No respiratory distress. Breath sounds normal. No Wheezing. No rales Abdomen: Soft and nontender. No rigidity. No distention. good BS x4 Skin: Skin warm and dry. Normal skin color. Normal skin turgor. Extremities: No lower extremity edema. Neurovascular intact to all extremities. No Lacerations. No Rash Neuro: Oriented X 3. No motor deficit. No sensory deficit. Moving all extermities. No slurred speech Course Course Course Narrative: This is a rapid medical exam: Additional HPI, ROS, PE not included below will be deferred to primary provider. Patient is a 64-year-old male with history of syncope, orthostatic hypotension, afib on eliquis presenting to the ED after syncopal episode this am. Fell backwards onto bed, did not fall to the floor, no headstrike. Patient describes as a head robledo. Then had dyspnea following this episode. Plan: EKG, labs, viral swabs, cxr Medications Administered Discontinued Medications Generic Name Dose Route Start Last Admin Trade Name Freq PRN Reason Stop Dose Admin Metoprolol Tartrate 5 mg 02/07/24 16:36 02/07/24 17:05 Metoprolol Tartrate 5 Mg/5 Ml Vial IVPUSH 02/07/24 16:37 5 mg ONCE ONE Administration Medical Decision Making Medical Decision Making [facility] Narrative: Two sets of cardiac enzymes were done they were both negative less than 2.7. In this setting atypical history less likely secondary to ACS. Patient did have an increase in heart rate up to 120 here in the emergency department. My interpretation of patient's EKG was in an atrial fibrillation pattern. Patient was given a dose of metoprolol IV. Monitor in the emergency department. Heart rate is now controlled about 100. His symptoms completely resolved. Two sets of cardiac enzymes done over 6 hours apart were negative. Case was discussed with cardiology felt comfortable following up on an outpatient basis. Never actually passed out patient is currently in stable condition Differential Diagnosis Differential Diagnoses: The differential diagnosis associated with the presentation includes ACS, electrolyte disturbance, palpitation, arrhythmia Admission/Observation Consideration of admission/observation: Escalation of care including admission/observation considered Consult Healthcare Provider Management of the patient was discussed with: [employer] [employer] (Cardiology Dr. ingram consulted) Lab Data [facility] Lab Attestation statement: I reviewed the patient's lab results. 02/07/24 12:48 02/07/24 12:47 Labs: Lab Results 02/07/24 02/07/24 02/07/24 Range/Units 12:47 12:48 18:00 WBC 5.2 (4.8-10.8) X10*3/uL RBC 5.83 H (4.60-5.80) X10*6/uL Hgb 18.4 H (14.0-18.0) g/dl Hct 54.1 H (42.0-52.0) % MCV 92.8 (80.0-98.0) fL MCH 31.6 (27.0-33.0) pg MCHC 34.0 (31.0-36.0) g/dl RDW 12.2 (11.0-16.0) % Plt Count 239 D (160-400) X10*3/uL MPV 9.1 L (9.4-12.4) fL Immature Gran % (Auto) 0.4 (0.0-0.4) % Neut % (Auto) 67.8 (45-73) % Lymph % (Auto) 18.8 L (20-40) % [place] % (Auto) 10.6 (2-11) % Eos % (Auto) 1.0 (0-4) % Baso % (Auto) 1.4 (0-2) % Lymph # (Auto) 1.0 L (1.2-4.9) X10*3/uL [place] # (Auto) 0.6 (0.1-1.2) X10*3/uL Eos # (Auto) 0.1 (0.0-0.4) X10*3/uL Baso # (Auto) 0.1 (0.0-0.2) X10*3/uL Abs Immat Gran (auto) 0.02 (0.00-0.03) X10*3/uL Absolute Neuts (auto) 3.5 (2.0-8.3) x10*3/uL Absolute Nucleated RBC 0.000 (0.0-0.012) X10*3/uL Nucleated RBC % (auto) 0.0 (0.0-0.2) /100WBC PT 10.7 L (11.1-13.3) SEC INR 0.9 (0.9-1.1) Sodium 141 (135-145) mmol/L Potassium 4.5 (3.3-5.1) mmol/L Chloride 103 (96-108) mmol/L Carbon Dioxide 27 (22-29) mmol/L Anion Gap 16 (12-20) BUN 7 L (9-16) mg/dL Creatinine 1.09 (0.5-1.4) mg/dL Estim Creat Clear Calc 76.1 Estimated GFR > 60 Random Glucose 133 H (60-115) mg/dL Calcium 9.9 D (8.4-10.2) mg/dL Total Bilirubin 2.1 H (0.0-1.0) mg/dL AST 18 (5-37) U/L ALT 13 (0-40) U/L Alkaline Phosphatase 52 (39-117) U/L Troponin I High Sens < 2.7 < 2.7 (<3.5-35.0) ng/L Total Protein 7.4 (6.5-8.0) g/dL Albumin 4.2 (3.5-5.0) g/dL Ethyl Alcohol < 10 mg/dL Influenza Type A (PCR) NEGATIVE (Negative) Influenza Type B (PCR) NEGATIVE (Negative) RSV RNA Qual (PCR) NEGATIVE (Negative) SARS-CoV-2 RNA (RT-PCR) NEGATIVE (Negative) Independent Interpretation I performed an independent interpretation of an: EKG (Atrial fibrillation heart rate is 120 QRS is normal QTC normal no acute ST segment elevation.) and Plain X-Ray (Chest x-ray grossly negative for any acute evidence of pneumonia pneumothorax) Radiology Impression Discussion of test interpretation with radiology: I have reviewed the radiologist's reading. External Record Review External record reviewed: Inpatient record Chronic Conditions Alcohol abuse Social Determinants Patient?s care significantly limited by Social Determinants of Health including: Alcoholism and drug addiction in family Discharge Plan Discharge Clinical Impression: Atrial fibrillation with rapid ventricular response Patient Disposition: Home, Self-Care Instructions: A-fib (Atrial Fibrillation) (ED) Prescriptions: No Action thiamine mononitrate (vit B1) 100 mg Tablet 100 mg PO DAILY Qty: 30 0RF Eliquis 5 mg tablet 5 mg PO BID Qty: 60 0RF metoprolol tartrate 100 mg tablet 100 mg PO BID Qty: 60 2RF Referrals: Raghavendra Ingram MD [Physician] - 02/09/24
[2024-02-07 12:19] VITALS: BP 154/96; PULSE 106; RESP 17; TEMP 36.6; O2SAT 94; BMI 24.1
[2024-02-07 12:56] LABS: MANUAL DIFF FLAG NO
[2024-02-07 12:59] LABS: Basophils Absolute Auto 0.1 X10*3/uL (0.0-0.2); Basophils Percent Auto 1.4 % (0-2); Eosinophils Absolute Auto 0.1 X10*3/uL (0.0-0.4); Hematocrit 54.1 % (42.0-52.0); Hemoglobin 18.4 g/dl (14.0-18.0); Imm Gran Abs Auto 0.02 X10*3/uL (0.00-0.03); Imm Gran Pct Auto 0.4 % (0.0-0.4); Lymphocytes Percent Auto 18.8 % (20-40); Mean Corpuscular Hemoglobin 31.6 pg (27.0-33.0); Mean Corpuscular Volume 92.8 fL (80.0-98.0); Mean Platelet Volume 9.1 fL (9.4-12.4); Monocytes Absolute Auto 0.6 X10*3/uL (0.1-1.2); Monocytes Percent Auto 10.6 % (2-11); Neutrophils Absolute Auto 3.5 x10*3/uL (2.0-8.3); Neutrophils Percent Auto 67.8 % (45-73); Platelet Count 239 X10*3/uL (160-400); Red Blood Count 5.83 X10*6/uL (4.60-5.80); Red Cell Distribution Width 12.2 % (11.0-16.0); White Blood Count 5.2 X10*3/uL (4.8-10.8)
[2024-02-07 13:07] LABS: INTERNATIONAL NORM RATIO 0.9 (0.9-1.1); Prothrombin Time 10.7 SEC (11.1-13.3)
[2024-02-07 13:31] LABS: Alanine Aminotransferase 13 U/L (0-40); Albumin Level 4.2 g/dL (3.5-5.0); Alkaline Phosphatase 52 U/L (39-117); Anion Gap 16 (12-20); Aspartate Amino Transferase 18 U/L (5-37); Bilirubin Total 2.1 mg/dL (0.0-1.0); Blood Urea Nitrogen 7 mg/dL (9-16); Calcium 9.9 mg/dL (8.4-10.2); Carbon Dioxide 27 mmol/L (22-29); Chloride 103 mmol/L (96-108); Creatinine Clr Calc Pharmacy 76.1; Estimated Glomerular Filt Rate > 60; Glucose Random 133 mg/dL (60-115); Potassium 4.5 mmol/L (3.3-5.1); Sodium 141 mmol/L (135-145); Total Protein 7.4 g/dL (6.5-8.0)
[2024-02-07 13:33] LABS: Influenza A PCR NEGATIVE (Negative); Influenza B PCR NEGATIVE (Negative); Resp Syncy Virus RNA Qual PCR NEGATIVE (Negative); SARS COV2 PCR INHOUSE NEGATIVE (Negative)
[2024-02-07 13:39] LABS: Troponin-I High Sensitivity < 2.7 ng/L (<3.5-35.0)
[2024-02-07 16:01] VITALS: BP 126/89; PULSE 100; RESP 14; TEMP 36.8; O2SAT 100
[2024-02-07 17:05] VITALS: BP 134/98; PULSE 98; RESP 16; O2SAT 97
[2024-02-07 17:05] LABS: Ethanol < 10 mg/dL
[2024-02-07] MEDS: Metoprolol Tartrate 5 MG/5 ML VIAL IVPUSH (17:05)
--- NOTE | 2024-02-07 17:19 | PC.NURSE ---
patient a&ox3, iv inserted, labs previously drawn, pt placed on nuclear monitoring technician pt afib on monitor, pt medicated per order, call dos santos within reach, will continue to monitor
[2024-02-07 18:38] LABS: Troponin-I High Sensitivity < 2.7 ng/L (<3.5-35.0)
[2024-02-07 19:13] VITALS: BP 146/96; PULSE 103; RESP 20; O2SAT 98
[2024-02-07 19:21] VITALS: BP 146/96; PULSE 103; RESP 20; TEMP 37; O2SAT 98
== END 2024-02-07 21:11 | disposition home or self-care (01) ==
PROVIDERS: Registered Nurse Emergency; Emergency Provider Emergency Medicine Emergency Medical Services
DX: I48.20 Chronic atrial fibrillation, unspecified (principal); R07.89 Other chest pain; R11.0 Nausea; Z11.52 Encounter for screening for COVID-19; Z20.822 Contact with and (suspected) exposure to COVID-19; Z87.891 Personal history of nicotine dependence; Z79.899 Other long term (current) drug therapy
CPT/HCPCS: 0241U; 36415; 71046; 80053; 80307; 84484; 85025; 85610; 93005; 96360; 96361; 99284

== ENCOUNTER 2024-02-14 09:40 | Outpatient (AMB) | payer BC, SELFPAY ==
[2024-02-14 09:48] VITALS: BP 120/82; PULSE 100; BMI 25.1
--- NOTE | 2024-02-14 09:48 | A.OFFVIS_ITS ---
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 Following last visit he did have a syncopal event and was admitted to [facility] [place]. He was treated for AFib RVR with plan for outpatient cardioversion. Today he reports he has been feeling dizzy frequently since his hospital discharge. He has not had any recurrent syncope or falls. At times he feels like he is going to pass out but does not. He has not been feeling heart palpitations. He tells me he has not been taking the Eliquis as he thought he was told he did not need it. He cut back his drinking to a few beers a week. No shortness of breath, PND, orthopnea or edema. No chest discomfort at rest or with activity. 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 [facility] Medical History Anticoagulated Atrial fibrillation with rapid ventricular response Orthostatic hypotension Daily consumption of alcohol No pertinent past medical history Sciatica Surgical History History of umbilical hernia repair H/O right knee surgery Family History Brother History of open heart surgery Social History Household Members: None Housing: House Are you a primary day care aide to a significant other at home: No Do you presently have visiting nurse or other home services: No Alcohol intake: current Alcohol intake frequency: 0-2 drinks per day Alcohol t ype: beer Patient Tobacco Use Status: Former Tobacco user Quit Date: 1979 Tobacco use type: Cigarette Years Smoked: 8 Second Hand Smoke Exposure: No Substance Use Type: Marijuana Advance Directives Date on File: 12/20/23 service: No Current occupational status: employed 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, 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 Review of Systems Const All systems reviewed & are unremarkable except as noted in HPI and below ENT Reports dizziness Card Denies chest pain, Denies chest pain at rest, Denies chest pain with activity, Denies rapid heart rate, Denies pedal edema, Denies edema, Denies leg edema, Denies lightheadedness, Denies palpitations, Reports dyspnea, Denies dyspnea on exertion and Denies orthopnea Resp Denies cough, Reports dyspnea and Denies dyspnea on exertion GI Denies hematochezia and Denies change in stool character Musc Denies abnormal gait, Denies limited range of motion, Denies muscle cramps, Denies muscle weakness, Denies numbness, Denies radiating pain into limb, Denies stiffness and Denies tingling Neuro Denies abnormal gait, Reports dizziness, Denies numbness and Denies tingling Endo Denies palpitations Physical Exam Vital Signs: Last Vital Signs Pulse 100 02/14/24 09:48 BP 120/82 02/14/24 09:48 BMI result Body Mass Index 25.1 Const General: cooperative, healthy appearing, comfortable and no acute distress Orientation/consciousness: patient oriented x3 Neck Neck: Yes normal visual inspection and Yes no JVD Resp Effort & Inspection: normal respiratory effort Auscultation: clear to auscultation bilaterally, no rales, no rhonchi and no wheezes Cardio Jugular venous distension: no JVD Rate: tachycardic Rhythm: abnormal rhythm Heart sounds: S1 normal heart sound present, S2 normal heart sound present, no gallops, no murmurs and no rubs Neuro General: patient oriented x3 Extrem General: Yes normal to inspection and No no pedal edema Psych Appearance: grossly normal Mental Status: mental status grossly normal Speech and movement: Normal speech and movement present Office Procedures EKG Details: Today, afib, 2 PVCs, nonspecific ST abn, rate 100, QTc 433ms [id number], Complete Assessment & Plan Assessment & Plan (1) New onset a-fib: Code(s): I48.91 - Unspecified atrial fibrillation Plan: Newer finding of atrial fibrillation when presented to the ER in Dec 2023 with multiple complaints including fatigue and malaise, GI symptoms. He was treated with heart rate control using metoprolol. He was started on Eliquis for anticoagulation. He does drink alcohol daily, currently admitting to 3-4 beers. No bleeding issues reported. Echocardiogram showed EF 50-55%, left atrium moderately dilated, normal valves. On follow-up visit he had no concerning symptoms. Days later he was admitted to [facility] following a syncopal event. He was not orthostatic at that time. He was noted to have AFib RVR and was treated with meds for rate control. Upon discharge his plan was for outpatient cardioversion. Today he states he has been having issues with dizziness since his hospital discharge. He is not orthostatic on my exam today. His heart rate is mildly elevated. EKG shows atrial fibrillation with 2 PVCs, heart rate 100. Will have him increase metoprolol to 150 mg in the a.m. and 100 mg in the p.m.. He has not been taking Eliquis. He believes he was told he did not need it upon discharge. Will have him restart Eliquis. 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 If it was done sooner he would need a transesophageal echo/cardioversion. Office EKG set up for 3 weeks. At this time planning for cardioversion after 1 month of anticoagulation use. Reviewed the Diagnosis of atrial fibrillation, stroke risk with AFib and need for med management reviewed with him. 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 Plan: As above (3) Daily consumption of alcohol: Comment: 3-4 Beers Code(s): Z78.9 - Other specified health status Plan: As above- he now states he is drinking only a few beers each week (4) Hospital discharge follow-up: Code(s): Z09 - Encounter for follow-up examination after completed treatment for conditions other than malignant neoplasm Plan: As above Plan Time spent on chart review, documentation, interview and assessment Medications: Changed From metoprolol tartrate 100 mg PO BID 60 tabs 2RF To metoprolol tartrate 100 mg orally 150mg ( 1.5 tablets) in am and 100mg ( 1 tablet) in pm; 75 tabs 4RF Refilled apixaban (Eliquis) 5 mg PO BID 60 tabs 5RF Coding Level of Care Code Est Pt Level 4 (48527) Diagnoses New onset a-fib I48.91 Anticoagulated Z79.01 Daily consumption of alcohol Z78.9 Hospital discharge follow-up Z09 CPT Codes EKG - CPT: [id number], Complete ([id number]) Time Spent (min) 28
== END 2024-02-14 10:43 | disposition home or self-care (01) ==
PROVIDERS: Visit Provider Nurse Practitioner Family
DX: I48.91 Unspecified atrial fibrillation (principal); Z79.01 Long term (current) use of anticoagulants; Z78.9 Other specified health status; Z09 Encounter for follow-up examination after completed treatment for conditions other than malignant neoplasm
CPT/HCPCS: 93010; 99214

== ENCOUNTER → 2024-02-14 09:40 | Outpatient (BNVA) | payer BC, SELFPAY | PROVIDERS: Visit Provider Nurse Practitioner Family | DX: I48.91 Unspecified atrial fibrillation (principal); F10.90 Alcohol use, unspecified, uncomplicated; Z79.01 Long term (current) use of anticoagulants; Z79.899 Other long term (current) drug therapy | CPT/HCPCS: 93005 ==

== ENCOUNTER 2024-02-23 09:48 | Emergency (ER) | payer BC, SELFPAY ==
[2024-02-23] VITALS (8 sets, daily range): BP systolic 102–125; BP diastolic 69–89; PULSE 102–140; RESP 17–20; TEMP 36.4–36.8; O2SAT 98–99; BMI 24.4
--- NOTE | ~2024-02-23 | XR_ITS ---
EXAMINATION: XR CHEST CLINICAL INFORMATION: Recurrent syncope attack, chest pain COMPARISON: Chest x-ray on 02/07/2024 TECHNIQUE: Frontal view of the chest was obtained. FINDINGS: vascularity. LUNGS: Small asymmetric patchy alveolar density is seen in lateral left lung base. No pneumothorax is seen. BONES: Bony skeleton is intact. XR/XR chest 1V IMPRESSION: Interval development of lateral left lung base focal alveolar density, suggestive of focal atelectasis. Follow-up PA and lateral chest x-ray in one week to ensure resolution and to exclude developing lung mass lesion is recommended.
--- NOTE | 2024-02-23 09:49 | ECG_ITS ---
Test Reason : syncope Blood Pressure : / mmHG Vent. Rate : 114 BPM Atrial Rate : 000 BPM P-R Int : 000 ms QRS Dur : 084 ms QT Int : 340 ms P-R-T Axes : 000 018 217 degrees QTc Int : 468 ms Atrial fibrillation with rapid ventricular response Nonspecific ST and T wave abnormality Abnormal ECG When compared with ECG of 07-FEB-2024 12:13, Nonspecific T wave abnormality now evident in Lateral leads Referred By: Edu Vazquez Electronically Signed By:YNES TRENT
[2024-02-23 10:39] LABS: MANUAL DIFF FLAG NO
--- NOTE | 2024-02-23 10:42 | ED_ITS ---
HPI - Syncope General Chief Complaint: Arrhythmia/Palpitations Stated Complaint: passed out this AM Time Seen by Provider: 02/23/24 10:31 Source: patient and old records reviewed Mode of arrival: ambulatory Limitations: no limitations History of Present Illness HPI narrative: 64 yo male with PMH of alcohol use disorder, afib with syncopal events in past and recent [place] [facility] [place] - EF 50-55%, seen 02/13 started on metoprolol 150mg am and 100mg PM, continued eliquis use here with c/o having fast heart rate again at 5am today was watching TV went to stand up and passed out on couch. No trauma back to baseline. States this always happens when he tries to get up. He notes he is not taking PM metoprolol as he didn't know he needed to. He feels short of breath and tired. No chest pain. He is avid walker and has no symptoms when walking MD complaint: loss of consciousness Onset (ago): day(s) (5am today) -: second(s) Prodromal symptoms: lightheaded and palpitations Witnessed: No Context: standing up Injuries sustained associated with event: none Current symptoms: back to baseline History: previous syncopal episode Treatments prior to arrival: none Related Data Previous Rx's ?Medication ?Instructions ?Recorded thiamine mononitrate (vit B1) 100 100 mg PO DAILY #30 tabs 12/18/23 mg tablet apixaban 5 mg tablet (Eliquis) 5 mg PO BID #60 tabs 02/14/24 metoprolol tartrate 100 mg tablet 100 mg PO .COMPLEX #75 tabs 02/14/24 Allergies Allergy/AdvReac Type Severity Reaction Status Date / Time No Known Allergies Allergy Verified 02/23/24 10:11 Review of Systems 2 Review of Systems: Constitutional : No Fever, No Chills, No Fatigue ENT/Mouth : No sore throat, No Rhinorrhea Eyes: No Eye Pain, No Swelling, No Redness Cardiovascular : No Chest Pain, pos SOB, No Dyspnea on Exertion, pos palpitations Respiratory : No Cough, No Sputum Gastrointestinal : No Nausea, No Vomiting, No Diarrhea, No abdominal Pain Genitourinary : No Dysuria, No Urinary Frequency, No Hematuria, Musculoskeletal : No joint pain, No Myalgias, No Joint Swelling Skin : No Skin Lesions, No rash Neuro : No Weakness, No Numbness, No Dizziness, no Headache, pos syncope Psych : No Anxiety/Panic, No Depression Heme/Lymph: No Bruising, No Bleeding,No Lymphadenopathy Endocrine : No Polyuria, No Polydipsia All other systems reviewed and are negative [facility] Past Medical History Attestation statement: The following information was validated with the patient. Source: old records reviewed Medical History Anticoagulated Atrial fibrillation with rapid ventricular response Orthostatic hypotension Daily consumption of alcohol No pertinent past medical history Sciatica Surgical History History of umbilical hernia repair H/O right knee surgery Family History Family History Brother History of open heart surgery Social History Social History Household Members: None Housing: House Are you a primary toddler caregiver to a significant other at home: No Do you presently have visiting nurse or other home services: No Alcohol intake: current Alcohol intake frequency: 0-2 drinks per day Alcohol type: beer Patient Tobacco Use Status: Former Tobacco user Quit Date: 1979 Tobacco use type: Cigarette Years Smoked: 8 Smoked in Last 30 Days: Yes Second Hand Smoke Exposure: No Substance Use Type: Marijuana Last Used Substance: Days (ago) Advance Directives: Yes Advance Directives on File: Yes Advance Directives Date on File: 12/20/23 service: No Current occupational status: employed 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 Oriented X3. No acute distress. Eyes: Pupils equal, round and reactive to light. ENT: Pharynx normal. atraumatic Neck: Normal inspection. Neck supple. CVS: tachycardic irregular heart rate and rhythm. Pulses normal. Respiratory: No respiratory distress. Breath sounds normal. Abdomen: Soft and nontender. Skin: Skin warm and dry. Normal skin color. Normal skin turgor. Extremities: No lower extremity edema. No calf ttp Neuro: Oriented X 3. No motor deficit. No sensory deficit. Medications Administered Discontinued Medications Generic Name Dose Route Start Last Admin Trade Name Miltonq PRN Reason Stop Dose Admin Sodium Chloride 1,000 mls @ 999 mls/hr 02/23/24 11:00 02/23/24 12:20 Ns IV 02/23/24 12:00 Infused .Q1H1M TRINO Infusion Magnesium Sulfate 2 gm in 50 mls @ 25 mls/hr 02/23/24 10:59 02/23/24 13:24 Magnesium Sulfate/H2o IV 02/23/24 12:58 Infused ONCE ONE Infusion Medical Decision Making Medical Decision Making [facility] Narrative: 64 yo male with PMH of alcohol use disorder, afib with syncopal events in past and recent [place] [facility] [place] - EF 50-55%, on eliquis but not compliant with PM metoprolol at this time will need basic labs, ortho VS, will obtain ETOH level start on fluids and magnesium and observe suspect rapid HR and noncompliance cause of symptoms - he has no chest pain with avid walking not consistent with ACS and he is taking his eliquis doubt VTE. No head trauma during episode. Differential Diagnosis Differential Diagnoses: The differential diagnosis associated with the presentation includes ETOH abuse, dehydration, noncompliance and afib Admission/Observation Consideration of admission/observation: Escalation of care including admission/observation considered trop flat x 2 feels better HR around baseline Consult Healthcare Provider Management of the patient was discussed with: Assistant Gm Of Content & Delivery Lab Data [facility] Lab Attestation statement: I reviewed the patient's lab results. 02/23/24 10:29 02/23/24 10:29 Labs: Lab Results 02/23/24 02/23/24 02/23/24 Range/Units 10:29 10:41 13:10 WBC 4.2 L (4.8-10.8) X10*3/uL RBC 5.42 (4.60-5.80) X10*6/uL Hgb 17.1 (14.0-18.0) g/dl Hct 50.0 (42.0-52.0) % MCV 92.3 (80.0-98.0) fL MCH 31.5 (27.0-33.0) pg MCHC 34.2 (31.0-36.0) g/dl RDW 12.6 (11.0-16.0) % Plt Count 167 D (160-400) X10*3/uL MPV 8.9 L (9.4-12.4) fL Immature Gran % (Auto) 0.2 (0.0-0.4) % Neut % (Auto) 47.3 (45-73) % Lymph % (Auto) 39.5 (20-40) % Wilkinson % (Auto) 9.1 (2-11) % Eos % (Auto) 2.9 (0-4) % Baso % (Auto) 1.0 (0-2) % Lymph # (Auto) 1.7 (1.2-4.9) X10*3/uL Wilkinson # (Auto) 0.4 (0.1-1.2) X10*3/uL Eos # (Auto) 0.1 (0.0-0.4) X10*3/uL Baso # (Auto) 0.0 (0.0-0.2) X10*3/uL Abs Immat Gran (auto) 0.01 (0.00-0.03) X10*3/uL Absolute Neuts (auto) 2.0 (2.0-8.3) x10*3/uL Absolute Nucleated RBC 0.000 (0.0-0.012) X10*3/uL Nucleated RBC % (auto) 0.0 (0.0-0.2) /100WBC PT 11.2 (11.1-13.3) SEC INR 0.9 (0.9-1.1) Sodium 142 (135-145) mmol/L Potassium 4.1 (3.3-5.1) mmol/L Chloride 105 (96-108) mmol/L Carbon Dioxide 27 (22-29) mmol/L Anion Gap 14 (12-20) BUN 7 L (9-16) mg/dL Creatinine 0.95 (0.5-1.4) mg/dL Estim Creat Clear Calc 87.3 Estimated GFR > 60 Random Glucose 90 (60-115) mg/dL Calcium 9.1 D (8.4-10.2) mg/dL Magnesium 2.3 (1.6-2.6) mg/dL Total Bilirubin 1.5 H (0.0-1.0) mg/dL AST 21 (5-37) U/L ALT 14 (0-40) U/L Alkaline Phosphatase 48 (39-117) U/L Troponin I High Sens 2.9 < 2.7 (<3.5-35.0) ng/L B-Natriuretic Peptide 119 H (<100) pg/mL Total Protein 7.0 (6.5-8.0) g/dL Albumin 4.0 (3.5-5.0) g/dL Ethyl Alcohol 150 mg/dL Independent Interpretation I performed an independent interpretation of an: EKG Interpretation: Rate: 114 Rhythm: afib Mckenna: normal Normal QRS complex. ST T wave : no RUPALI, subtle ST depressions V4-V6 qTC: 468 prior studies: no change from prior The study has been interpreted contemporaneously by me. . Radiology Impression Discussion of test interpretation with radiology: I have reviewed the radiologist's reading. External Record Review External record reviewed: Inpatient record and Outpatient record Discharge Plan Discharge Clinical Impression: Alcohol use disorder A-fib Qualifiers: Atrial fibrillation type: unspecified Qualified Code(s): I48.91 - Unspecified atrial fibrillation Patient Disposition: Home, Self-Care Instructions: A-fib (Atrial Fibrillation) (ED), Alcohol Use Disorder (ED) Additional Instructions: you need to follow up with a route manager - return for any worsening symptoms. please continue to cut back on your drinking. return for worsening symptoms or concerns you should be taking metoprolol 150mg in the morning and 100mg at night continue your eliquis Prescriptions: No Action thiamine mononitrate (vit B1) 100 mg Tablet 100 mg PO DAILY Qty: 30 0RF metoprolol tartrate 100 mg tablet 100 mg PO .COMPLEX Qty: 75 4RF Rx Instructions: 100 mg orally 150mg ( 1.5 tablets) in am and 100mg ( 1 tablet) in pm; Eliquis 5 mg tablet 5 mg PO BID Qty: 60 5RF Stand Alone Forms: Work/School Release Print Language: Marshallese
[2024-02-23 10:43] LABS: Eosinophils Absolute Auto 0.1 X10*3/uL (0.0-0.4); Eosinophils Percent Auto 2.9 % (0-4); Hemoglobin 17.1 g/dl (14.0-18.0); Imm Gran Abs Auto 0.01 X10*3/uL (0.00-0.03); Imm Gran Pct Auto 0.2 % (0.0-0.4); Lymphocytes Absolute Auto 1.7 X10*3/uL (1.2-4.9); Lymphocytes Percent Auto 39.5 % (20-40); Mean Corpuscular HGB Conc 34.2 g/dl (31.0-36.0); Mean Corpuscular Hemoglobin 31.5 pg (27.0-33.0); Mean Corpuscular Volume 92.3 fL (80.0-98.0); Mean Platelet Volume 8.9 fL (9.4-12.4); Monocytes Absolute Auto 0.4 X10*3/uL (0.1-1.2); Monocytes Percent Auto 9.1 % (2-11); Neutrophils Percent Auto 47.3 % (45-73); Platelet Count 167 X10*3/uL (160-400); Red Blood Count 5.42 X10*6/uL (4.60-5.80); Red Cell Distribution Width 12.6 % (11.0-16.0); White Blood Count 4.2 X10*3/uL (4.8-10.8)
[2024-02-23 10:49] LABS: INTERNATIONAL NORM RATIO 0.9 (0.9-1.1); Prothrombin Time 11.2 SEC (11.1-13.3)
[2024-02-23 11:04] LABS: Alanine Aminotransferase 14 U/L (0-40); Anion Gap 14 (12-20); Aspartate Amino Transferase 21 U/L (5-37); B Type Natriuretic Peptide 119 pg/mL (<100); Bilirubin Total 1.5 mg/dL (0.0-1.0); Blood Urea Nitrogen 7 mg/dL (9-16); Calcium 9.1 mg/dL (8.4-10.2); Carbon Dioxide 27 mmol/L (22-29); Chloride 105 mmol/L (96-108); Creatinine Clr Calc Pharmacy 87.3; Estimated Glomerular Filt Rate > 60; Glucose Random 90 mg/dL (60-115); Magnesium 2.3 mg/dL (1.6-2.6); Potassium 4.1 mmol/L (3.3-5.1); Sodium 142 mmol/L (135-145); Troponin-I High Sensitivity 2.9 ng/L (<3.5-35.0)
[2024-02-23 11:07] LABS: Ethanol 150 mg/dL
[2024-02-23] MEDS: 0.9 % Sodium Chloride 1,000 ML 999 ML IV (11:17)
[2024-02-23] MEDS: Magnesium Sulfate/H2O 2 GM/50 ML PIGGYBACK IV (11:20)
--- NOTE | 2024-02-23 11:31 | PC.NURSE ---
hr up to 150 when stood for orthos- md campos aware- no cp, reports intermittent dizziness/sob/nice, talking full sentences, +CMS.
[2024-02-23 11:36] LABS: Alkaline Phosphatase 48 U/L (39-117)
--- NOTE | 2024-02-23 12:53 | PC.NURSE ---
per md campos ok to eat- pt ate sandwhich and drank juices well
--- NOTE | 2024-02-23 13:21 | PC.NURSE ---
md campos made aware pt briefly hr up to 140s, resolved spontaneously, pt was resting in bed at times, 124/82 bp, hr back to 105-110.
[2024-02-23 13:57] LABS: Troponin-I High Sensitivity < 2.7 ng/L (<3.5-35.0)
== END 2024-02-23 14:23 | disposition home or self-care (01) ==
PROVIDERS: Physician Assistant; Emergency Provider Emergency Medicine
DX: R55 Syncope and collapse (principal); R00.2 Palpitations; I48.91 Unspecified atrial fibrillation; R42 Dizziness and giddiness; R11.2 Nausea with vomiting, unspecified; F10.19 Alcohol abuse with unspecified alcohol-induced disorder; Y90.6 Blood alcohol level of 120-199 mg/100 ml; Z79.01 Long term (current) use of anticoagulants; Z79.899 Other long term (current) drug therapy; Z51.81 Encounter for therapeutic drug level monitoring
CPT/HCPCS: 36415; 71045; 80053; 80307; 83735; 83880; 84484; 85025; 85610; 93005; 96361; 96374; 99284; 99285; J3475

== ENCOUNTER → 2024-02-23 09:49 | Outpatient (BNV) | payer BC, SELFPAY | PROVIDERS: Emergency Provider Emergency Medicine; Visit Provider Internal Medicine | DX: I48.20 Chronic atrial fibrillation, unspecified (principal); R55 Syncope and collapse | CPT/HCPCS: 93010 ==

== ENCOUNTER 2024-02-24 10:04 | Emergency (ER) | payer BC, SELFPAY ==
[2024-02-24] VITALS (12 sets, daily range): BP systolic 114–136; BP diastolic 68–97; PULSE 84–123; RESP 11–18; TEMP 36.5–37.2; O2SAT 96–100; BMI 24.4
--- NOTE | 2024-02-24 | ECG_ITS ---
Test Reason : IREGULAR HEART BEAT Blood Pressure : / mmHG Vent. Rate : 126 BPM Atrial Rate : 000 BPM P-R Int : 000 ms QRS Dur : 086 ms QT Int : 314 ms P-R-T Axes : 000 032 068 degrees QTc Int : 454 ms Atrial fibrillation with rapid ventricular response with premature ventricular or aberrantly conducted complexes Nonspecific ST and T wave abnormality Abnormal ECG When compared with ECG of 23-FEB-2024 10:19, No significant change was found Referred By: Generic ED Physician Electronically Signed By:YNES TRENT
--- NOTE | 2024-02-24 10:33 | ED_ITS ---
HPI - Arrhythmia/Palpitations General Chief Complaint: Arrhythmia/Palpitations Stated Complaint: chest fluttering Time Seen by Provider: 02/24/24 10:26 Source: patient, RN notes reviewed and old records reviewed Mode of arrival: ambulatory Limitations: no limitations History of Present Illness HPI narrative: 64-year-old male with a history of AFib on Eliquis and metoprolol 150mg in the morning and 100mg at night, alcohol use disorder, orthostatic hypotension, sciatica who presents to the ER for evaluation palpitations. He states for the last 1 month he has had worsening feeling of his heart going very fast and then very slow. Is accompanied with lightheadedness and shortness of breath. He was seen here in the ER yesterday. Admitted to not taking his metoprolol regimen appropriately, often forgetting to take his 100 mg dose at night. He states his primary care doctor recently increased his metoprolol to 150 mg in the morning a few weeks ago but it hasnt helped. he reports not drinking alcohol for the last week, usually drinks every night. denies withdrawal symptoms. MD complaint: palpitations Onset (ago): month(s) (1) Duration: intermittent Severity: moderate Context: occurred during exertion Arrhythmia history: atrial fibrillation Associated symptoms: shortness of breath and anxiety Treatments prior to arrival: beta-kyle Related Data Previous Rx's ?Medication ?Instructions ?Recorded thiamine mononitrate (vit B1) 100 100 mg PO DAILY #30 tabs 12/18/23 mg tablet apixaban 5 mg tablet (Eliquis) 5 mg PO BID #60 tabs 02/14/24 metoprolol tartrate 100 mg tablet 100 mg PO .COMPLEX #75 tabs 02/14/24 metoprolol tartrate 100 mg tablet 150 mg (1.5 x 100 mg) PO BID #60 02/24/24 tabs Allergies Allergy/AdvReac Type Severity Reaction Status Date / Time No Known Allergies Allergy Verified 02/24/24 10:09 Review of Systems 2 Review of Systems: Yes all other systems are reviewed and are negative [facility] Past Medical History Medical History Anticoagulated Atrial fibrillation with rapid ventricular response Orthostatic hypotension Daily consumption of alcohol No pertinent past medical history Sciatica Surgical History History of umbilical hernia repair H/O right knee surgery Family History Family History Brother History of open heart surgery Social History Social History Household Members: None Housing: House Are you a primary critical care clinical nurse specialist to a significant other at home: No Do you presently have visiting nurse or other home services: No Alcohol intake: current Alcohol intake frequency: 3 or more drinks per day Alcohol type: beer Patient Tobacco Use Status: Former Tobacco user Quit Date: 1979 Tobacco use type: Cigarette Years Smoked: 8 Smoked in Last 30 Days: No Second Hand Smoke Exposure: No Use of substances other than those prescribed or required for medical reasons: No Substance Use Type: Marijuana Advance Directives: Yes Advance Directives on File: Yes Advance Directives Date on File: 12/20/23 service: No Current occupational status: employed 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 Oriented X3. No acute distress. Head: normocephalic, atraumatic. Eyes: Pupils equal, round and reactive to light. ENT: Pharynx normal. No tonsillar swelling or exudate. Neck: Normal inspection. Neck supple. CVS: irregularly irregular, rate 100s, no murmur appreciated. Pulses normal. Respiratory: No respiratory distress. Breath sounds normal. Abdomen: Soft and nontender. +BS x4 Skin: Skin warm and dry. Normal skin color. Normal skin turgor. No rashes. Extremities: No lower extremity edema. No joint swelling. Neuro/psych: Oriented X 3. No motor deficit. No sensory deficit. CN II-XII intact. Normal speech and cognition. Medications Administered Discontinued Medications Generic Name Dose Route Start Last Admin Trade Name Freq PRN Reason Stop Dose Admin Lorazepam 1 mg 02/24/24 12:28 02/24/24 12:49 Lorazepam 2 Mg/Ml Vial IVPUSH 02/24/24 12:29 1 mg ONCE ONE Administration Metoprolol Tartrate 5 mg 02/24/24 10:44 02/24/24 11:45 Metoprolol Tartrate 5 Mg/5 Ml Vial IVPUSH 02/24/24 10:45 5 mg ONCE ONE Administration Protocol Metoprolol Tartrate 50 mg 02/24/24 14:07 02/24/24 14:39 Metoprolol Tartrate 50 Mg Tablet PO 02/24/24 14:08 50 mg ONCE ONE Administration Protocol Ondansetron HCl 4 mg 02/24/24 12:28 02/24/24 12:49 Ondansetron Hcl 4 Mg/2 Ml Vial IVPUSH 02/24/24 12:29 4 mg ONCE ONE Administration Medical Decision Making Medical Decision Making MDM Narrative: 64-year-old male with history of AFib on Eliquis, alcohol abuse who presents to the ER for evaluation of palpitations and shortness of breath. He also reports dizziness. He has history of orthostatic hypotension. Orthostatics yesterday in the ER showed heart rates went up to 140 by blood pressure remained stable. Patient was discharged home with instructions to comply with his medication and abstain from alcohol. His alcohol level 250 yesterday morning. Patient today has heart rate of 120 at maximum, heart rates in the 90s to low 100s at rest. Blood pressure is stable in the 120 systolic. Lab work is unremarkable including a negative troponin Patient was given 5 mg of IV Lopressor along w/ 50 mg PO with improvement in heart rate to the 80s. Case was discussed with cardiology who is recommending improved rate control and outpatient follow-up. Hesitancy and cardioversion given compliance? And recent alcohol use. This was discussed with the patient including the importance of compliance with Eliquis. Will plan to increase his Lopressor to 150 mg at night and continue 150 mg in the morning. He was encouraged follow-up with cardiology as an outpatient for possible cardioversion in the future. Return precautions were discussed. All questions were answered. Differential Diagnosis Differential Diagnoses: The differential diagnosis associated with the presentation includes Rapid AFib, SVT, MAT, a flutter, alcohol withdrawal, orthostatic hypotension, dehydration, alcohol dependence, alcohol intoxication Admission/Observation Consideration of admission/observation: Escalation of care including admission/observation considered Consult Healthcare Provider Management of the patient was discussed with: Operating Room Assistant cardiology - recommending rate control and discharge, follow up as outpatient. encourage sobriety and med compliance Lab Data MDM Lab Attestation statement: I reviewed the patient's lab results. Stable leukopenia and thrombocytopenia 02/24/24 10:53 02/24/24 10:53 Labs: Lab Results 02/24/24 02/24/24 Range/Units 10:53 12:23 WBC 4.6 L (4.8-10.8) X10*3/uL RBC 4.98 (4.60-5.80) X10*6/uL Hgb 16.0 (14.0-18.0) g/dl Hct 45.6 (42.0-52.0) % MCV 91.6 (80.0-98.0) fL MCH 32.1 (27.0-33.0) pg MCHC 35.1 (31.0-36.0) g/dl RDW 12.4 (11.0-16.0) % Plt Count 151 L (160-400) X10*3/uL MPV 9.0 L (9.4-12.4) fL Immature Gran % (Auto) 0.2 (0.0-0.4) % Neut % (Auto) 71.8 (45-73) % Lymph % (Auto) 16.5 L (20-40) % [place] % (Auto) 9.1 (2-11) % Eos % (Auto) 1.3 (0-4) % Baso % (Auto) 1.1 (0-2) % Lymph # (Auto) 0.8 L (1.2-4.9) X10*3/uL [place] # (Auto) 0.4 (0.1-1.2) X10*3/uL Eos # (Auto) 0.1 (0.0-0.4) X10*3/uL Baso # (Auto) 0.1 (0.0-0.2) X10*3/uL Abs Immat Gran (auto) 0.01 (0.00-0.03) X10*3/uL Absolute Neuts (auto) 3.3 (2.0-8.3) x10*3/uL Absolute Nucleated RBC 0.000 (0.0-0.012) X10*3/uL Nucleated RBC % (auto) 0.0 (0.0-0.2) /100WBC Sodium 139 (135-145) mmol/L Potassium 4.2 (3.3-5.1) mmol/L Chloride 105 (96-108) mmol/L Carbon Dioxide 25 (22-29) mmol/L Anion Gap 13 (12-20) BUN 11 (9-16) mg/dL Creatinine 0.91 (0.5-1.4) mg/dL Estim Creat Clear Calc 91.1 Estimated GFR > 60 Random Glucose 131 H (60-115) mg/dL Calcium 9.1 (8.4-10.2) mg/dL Magnesium 2.0 (1.6-2.6) mg/dL Total Bilirubin 1.9 H (0.0-1.0) mg/dL AST 18 (5-37) U/L ALT 14 (0-40) U/L Alkaline Phosphatase 51 (39-117) U/L Troponin I High Sens 5.2 D (<3.5-35.0) ng/L B-Natriuretic Peptide 262 H (<100) pg/mL Total Protein 6.4 L (6.5-8.0) g/dL Albumin 3.9 (3.5-5.0) g/dL Ethyl Alcohol < 10 mg/dL Independent Interpretation I performed an independent interpretation of an: EKG Interpretation: afib w/ RVR, HR 126, PVCs, ST depression V5 unchanged. External Record Review External record reviewed: Inpatient record, Office record, Outpatient record, Prior outpatient labs and Prior outpatient radiology Prescription Management I considered prescription management with: Other (lopressor, digoxin, amiodarone) Chronic Conditions Patient?s care impacted by: Other (afib) Social Determinants Patient?s care significantly limited by Social Determinants of Health including: Alcoholism and drug addiction in family and Problems related to primary support group Critical Care Time Critical Care Time Critical Care Time: Yes Total Critical Care Time: 48 Attestation: I have personally provided critical care time exclusive of time spent on separately billable procedures. Time includes review of lab data, radiology results, discussion with consultants, and monitoring for potential decompensation. Intervention performed as documented. Discharge Plan Discharge Clinical Impression: Atrial fibrillation Qualifiers: Atrial fibrillation type: persistent (not longstanding) Qualified Code(s): I 48.19 - Other persistent atrial fibrillation Patient Disposition: Home, Self-Care Instructions: A-fib (Atrial Fibrillation) (DC) Additional Instructions: recommend increasing your metoprolol to 150 mg in the morning AND at night continue your eliquis follow up with cardiology for possible cardioversion it is very important for your heart and your afib that you STOP drinking alcohol completely If you develop new or worsening symptoms call 911 or come back to the ER for further evaluation. Prescriptions: New metoprolol tartrate 100 mg tablet 150 mg PO BID Qty: 60 0RF No Action thiamine mononitrate (vit B1) 100 mg Tablet 100 mg PO DAILY Qty: 30 0RF metoprolol tartrate 100 mg tablet 100 mg PO .COMPLEX Qty: 75 4RF Rx Instructions: 100 mg orally 150mg ( 1.5 tablets) in am and 100mg ( 1 tablet) in pm; Eliquis 5 mg tablet 5 mg PO BID Qty: 60 5RF Referrals: [facility] [place], [place] Cardiovascular Services [Provider Group] (afib w/ rvr, possible cardioversion) Print Language: Cymro
[2024-02-24 10:58] LABS: MANUAL DIFF FLAG NO
[2024-02-24 11:02] LABS: Basophils Absolute Auto 0.1 X10*3/uL (0.0-0.2); Basophils Percent Auto 1.1 % (0-2); Eosinophils Absolute Auto 0.1 X10*3/uL (0.0-0.4); Eosinophils Percent Auto 1.3 % (0-4); Hematocrit 45.6 % (42.0-52.0); Imm Gran Abs Auto 0.01 X10*3/uL (0.00-0.03); Imm Gran Pct Auto 0.2 % (0.0-0.4); Lymphocytes Absolute Auto 0.8 X10*3/uL (1.2-4.9); Lymphocytes Percent Auto 16.5 % (20-40); Mean Corpuscular HGB Conc 35.1 g/dl (31.0-36.0); Mean Corpuscular Hemoglobin 32.1 pg (27.0-33.0); Mean Corpuscular Volume 91.6 fL (80.0-98.0); Monocytes Absolute Auto 0.4 X10*3/uL (0.1-1.2); Monocytes Percent Auto 9.1 % (2-11); Neutrophils Absolute Auto 3.3 x10*3/uL (2.0-8.3); Neutrophils Percent Auto 71.8 % (45-73); Platelet Count 151 X10*3/uL (160-400); Red Blood Count 4.98 X10*6/uL (4.60-5.80); Red Cell Distribution Width 12.4 % (11.0-16.0); White Blood Count 4.6 X10*3/uL (4.8-10.8)
[2024-02-24 11:16] LABS: Ethanol < 10 mg/dL
[2024-02-24 11:18] LABS: Alanine Aminotransferase 14 U/L (0-40); Albumin Level 3.9 g/dL (3.5-5.0); Alkaline Phosphatase 51 U/L (39-117); Anion Gap 13 (12-20); Aspartate Amino Transferase 18 U/L (5-37); Bilirubin Total 1.9 mg/dL (0.0-1.0); Blood Urea Nitrogen 11 mg/dL (9-16); Calcium 9.1 mg/dL (8.4-10.2); Carbon Dioxide 25 mmol/L (22-29); Chloride 105 mmol/L (96-108); Creatinine Clr Calc Pharmacy 91.1; Estimated Glomerular Filt Rate > 60; Glucose Random 131 mg/dL (60-115); Potassium 4.2 mmol/L (3.3-5.1); Sodium 139 mmol/L (135-145); Total Protein 6.4 g/dL (6.5-8.0)
[2024-02-24 11:22] LABS: Troponin-I High Sensitivity 5.2 ng/L (<3.5-35.0)
[2024-02-24] MEDS: Metoprolol Tartrate 5 MG/5 ML VIAL IVPUSH (11:45)
[2024-02-24] MEDS: LORazepam 2 MG/ML VIAL 1 MG IVPUSH (12:49)
[2024-02-24] MEDS: ondansetron HCL 4 MG/2 ML VIAL IVPUSH (12:49)
[2024-02-24 12:52] LABS: B Type Natriuretic Peptide 262 pg/mL (<100)
[2024-02-24] MEDS: Metoprolol Tartrate 50 MG TABLET PO (14:39)
== END 2024-02-24 16:17 | disposition home or self-care (01) ==
PROVIDERS: Physician Assistant; Emergency Provider Emergency Medicine
DX: I48.19 Other persistent atrial fibrillation (principal); Z79.01 Long term (current) use of anticoagulants; Z79.899 Other long term (current) drug therapy
CPT/HCPCS: 36415; 80053; 80307; 83735; 83880; 84484; 85025; 93005; 96374; 96375; 99284; 99285; J2060; J2405

== ENCOUNTER → 2024-02-24 10:11 | Outpatient (BNV) | payer BC, SELFPAY | PROVIDERS: Emergency Provider Emergency Medicine; Visit Provider Internal Medicine | DX: I48.91 Unspecified atrial fibrillation (principal); R94.31 Abnormal electrocardiogram [ECG] [EKG] | CPT/HCPCS: 93010 ==

== ENCOUNTER 2024-02-28 10:36 | Outpatient (AMB) | payer BC, SELFPAY ==
--- NOTE | 2024-02-28 10:59 | A.OFFVIS_ITS ---
Vital Signs 02/28/24 11:01 Height 6 ft Weight 180 lb BMI 24.4 BP 118/68 Blood Pressure Location Lt brachial Position Sitting Pulse 89 Pulse Source Pulse Oximeter Pulse Oximetry (%) 99 Oxygen Delivery Method Room Air Intake Visit Reasons[place] [facility] [place] Allergies No Known Allergies Allergy (Verified 02/24/24 10:09) Medication List - Last Reconciled 02/28/24 by Meño Parker MD apixaban (Eliquis) 5 mg PO BID 90 days metoprolol tartrate 150 mg PO BID HPI Comments Details: Warren returns for follow-up regarding atrial fibrillation. He was initially seen in hospital consultation for atrial fibrillation. History of significant alcohol use and at that time he was drinking essentially daily. It seems that he is still drinking but not probably as much. He is on rate control beta- blockers. There have been dose adjustments recently. He was supposed to be on Eliquis but not taking that. He was in the emergency room last week. He states he has not drinking but when you look at alcohol levels, it was clearly elev ated. Even after numerous encounters in different settings, he has still not taking Eliquis. He believes he was advised not to take Eliquis which is likely not the case. Overall, minimal levels of understanding. He does feel some palpitations but no other cardiac symptoms. [facility] Medical History Anticoagulated Atrial fibrillation with rapid ventricular response Orthostatic hypotension Daily consumption of alcohol No pertinent past medical history Sciatica Surgical History History of umbilical hernia repair H/O right knee surgery Family History Brother History of open heart surgery Social History Household Members: None Housing: House Are you a primary hearing care practitioner to a significant other at home: No Do you presently have visiting nurse or other home services: No Alcohol intake: current Alcohol intake frequency: 3 or more drinks per day Alcohol type: beer Patient Tobacco Use Status: Former Tobacco user Quit Date: 1979 Tobacco use type: Cigarette Years Smoked: 8 Second Hand Smoke Exposure: No Substance Use Type: Marijuana Advance Directives Date on File: 12/20/23 service: No Current occupational status: employed 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, 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 Review of Systems Const Denies weakness ENT Denies dizziness Card Denies chest pain, Denies chest pain with activity, Denies syncope, Denies rapid heart rate, Denies pedal edema, Denies edema, Denies leg edema, Denies lightheadedness, Denies palpitations, Denies dyspnea, Denies dyspnea on exertion and Denies orthopnea Resp Denies cough, Denies dyspnea and Denies dyspnea on exertion GI Denies hematochezia and Denies change in stool character Musc Denies abnormal gait, Denies muscle cramps, Denies muscle weakness, Denies numbness, Denies radiating pain into limb and Denies tingling Neuro Denies abnormal gait, Denies dizziness, Denies syncope, Denies numbness, Denies tingling and Denies weakness Endo Denies palpitations Physical Exam Vital Signs: Last Vital Signs Pulse 89 02/28/24 11:01 BP 118/68 02/28/24 11:01 Pulse Ox 99 02/28/24 11:01 Oxygen Delivery Method Room Air 02/28/24 11:01 BMI result Body Mass Index 24.4 Const General: comfortable and no acute distress Orientation/consciousness: patient oriented x3 HEENT Other: Unremarkable Head: Yes normal to inspection Neck Neck: Yes normal visual inspection Chest Chest palpation & inspection: normal inspection of the chest Resp Auscultation: clear to auscultation bilaterally Cardio Palpation: normal PMI Heart sounds: S1 normal heart sound present, S2 normal heart sound present, no gallops, no murmurs and no rubs GI Palpation (GI): Soft to palpation Back/Spine/Pelvis Other: unremarkable Skin General skin exam: no rashes or lesions noted Neuro General: patient oriented x3 Extrem General: Yes normal to inspection Psych Mental Status: mental status grossly normal Assessment & Plan Assessment & Plan (1) Atrial fibrillation with rapid ventricular response: Code(s): I48.91 - Unspecified atrial fibrillation Category: Medical (2) Daily consumption of alcohol: Comment: 3-4 Beers Code(s): Z78.9 - Other specified health status Category: Social Hx (3) Noncompliance: Code(s): Z91.199 - Patient's noncompliance with other medical treatment and regimen due to unspecified reason Category: Medical Plan Last EKG from the emergency room shows atrial fibrillation with slightly rapid rate at 126/Min with nonspecific ST-T changes. Echocardiogram from December shows LVEF of 50-55%; moderately dilated left atrium but otherwise unremarkable. History of significant alcohol use and likely still drinking as levels were high last week. Unfortunately, difficult situation to deal with because of noncompliance. As documented above, he still not taking any Eliquis in spite of numerous reinforcements. Hence sending a new script and advised him to start. Continue beta-blockers. Not a good candidate for cardioversion at this time due to the above including alcohol issues, noncompliance. Will arrange Holter and then follow-up. Orders: Orders ECG 3 day holter monitor Today I48.91 - Unspecified atrial fibrillation, R00.2 - Palpitations Medications: New apixaban (Eliquis) 5 mg PO BID 180 tabs 3RF 90 days
[2024-02-28 11:01] VITALS: BP 118/68; PULSE 89; O2SAT 99; BMI 24.4
== END 2024-02-28 11:24 | disposition home or self-care (01) ==
LOC: HO.HCS 10:37
PROVIDERS: Visit Provider Internal Medicine
DX: I48.91 Unspecified atrial fibrillation (principal); Z78.9 Other specified health status; Z91.199 Patient's noncompliance with other medical treatment and regimen due to unspecified reason
CPT/HCPCS: 99214

== ENCOUNTER → 2024-02-28 10:36 | Outpatient (BNVA) | payer BC, SELFPAY | PROVIDERS: Visit Provider Internal Medicine ==

== ENCOUNTER → 2024-03-22 13:10 | Outpatient (REF) | payer BC, SELFPAY ==
--- NOTE | 2024-03-22 13:15 | HM_ITS ---
* Total monitoring time 3 days. * Underlying rhythm is atrial fibrillation with rapid rate of 98/Min. About 35% the time, rate > 100/Min. Max rate about 200/min. * Occasional ventricular ectopy with a burden < 1%. * No significant pauses or AV blocks. * Patient markers used in association with atrial fibrillation and ventricular ectopy. MTDD
== END ==
LOC: HO.CARD 13:10
PROVIDERS: Visit Provider Internal Medicine
DX: R00.2 Palpitations (principal); I48.91 Unspecified atrial fibrillation
CPT/HCPCS: 93242

== ENCOUNTER → 2024-03-22 13:15 | Outpatient (BNV) | payer BC, SELFPAY | PROVIDERS: Visit Provider Internal Medicine | DX: I48.91 Unspecified atrial fibrillation (principal) | CPT/HCPCS: 93244 ==

== ENCOUNTER 2024-04-07 10:28 | Day surgery (SDC) | payer BC, SELFPAY ==
--- NOTE | 2024-04-05 09:39 | HO.ANESPROP2 ---
Documented by User: Graciela Bryant NP 04/05/24 09:42 HPI - Anesthesia Eval Consult details Narrative: 64yo M for Transesophageal Echocardiogram, Cardioversion ETOH abuse ? Eliquis compliance [facility] Active Problems Active Problems: All Active Problems Noncompliance (Acute) Hospital discharge follow-up (Acute) Orthostatic hypotension (Acute) Atrial fibrillation with rapid ventricular response (Acute) Anticoagulated (Acute) Daily consumption of alcohol (Acute) Gallstones (Acute) New onset a-fib (Acute) Dehydration (Acute) Osteoarthritis of left shoulder (Acute) Instability of left shoulder joint (Acute) Glenoid fracture of shoulder (Acute) CMC arthritis (Acute) Sciatica (Acute) Past Medical History Medical History Anticoagulated Atrial fibrillation with rapid ventricular response Orthostatic hypotension Daily consumption of alcohol No pertinent past medical history Sciatica Family History Family History Brother History of open heart surgery Family history of problems with anesthesia: No Surgical History Surgical History History of umbilical hernia repair H/O right knee surgery History of Problems with Anesthesia: No Social History Social History Household Members: None Housing: House Are you a primary childcare worker to a significant other at home: No Do you presently have visiting nurse or other home services: No Alcohol intake: current Alcohol intake frequency: 3 or more drinks per day Alcohol type: beer Patient Tobacco Use Status: Former Tobacco user Tobacco use type: Cigarette Years Smoked: 8 Second Hand Smoke Exposure: No Use of substances other than those prescribed or required for medical reasons: Yes Substance Use Type: Marijuana Are you DNR?: No Advance Directives: No Advance Directives Information Provided: Yes Advance Directives Date on File: 12/20/23 service: No Current occupational status: employed 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, 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 Meds Allergies Allergy/AdvReac Type Severity Reaction Status Date / Time No Known Allergies Allergy Verified 02/24/24 10:09 Home Medications ?Medication ?Instructions ?Recorded ?Confirmed ?Last Taken ?Type folic acid 1 mg tablet 1 mg PO DAILY 04/05/24 04/06/24 Unknown History thiamine HCl (vitamin B1) 100 mg 100 mg PO DAILY 04/05/24 04/06/24 Unknown History tablet Exam Pertinent Lab Results Pertinent Lab Results: Laboratory Tests 02/24/24 10:53 WBC 4.6 L Hgb 16.0 Hct 45.6 Plt Count 151 L Sodium 139 Potassium 4.2 Chloride 105 Carbon Dioxide 25 BUN 11 Creatinine 0.91 Narrative Narrative: Holter Total monitoring time 3 days. Underlying rhythm is atrial fibrillation with rapid rate of 98/Min. About 35% the time, rate > 100/Min. Max rate about 200/min. Occasional ventricular ectopy with a burden < 1%. No significant pauses or AV blocks. Patient markers used in association with atrial fibrillation and ventricular ectopy. EKG 02/2024 Vent. Rate : 126 BPM Atrial Rate : 000 BPM P-R Int : 000 ms QRS Dur : 086 ms QT Int : 314 ms P-R-T Axes : 000 032 068 degrees QTc Int : 454 ms Atrial fibrillation with rapid ventricular response with premature ventricular or aberrantly conducted complexes Nonspecific ST and T wave abnormality Abnormal ECG When compared with ECG of 23-FEB-2024 10:19, No significant change was found Assessment and Plan Assessment Anesthesia Assessment: Chart Reviewed Final Anesthetic Review Family History of Problems with Anesthesia: No History of Problems with Anesthesia: No Documented by User: Mckenzie Lane MD 04/07/24 12:38 [facility] Past Medical History Medical History Anticoagulated Atrial fibrillation with rapid ventricular response Orthostatic hypotension Daily consumption of alcohol No pertinent past medical history Sciatica Family History Family History Brother History of open heart surgery Surgical History Surgical History History of umbilical hernia repair H/O right knee surgery Social History Social History Household Members: None Housing: House Are you a primary childcare worker to a significant other at home: No Do you presently have visiting nurse or other home services: No Alcohol intake: current Alcohol intake frequency: 3 or more drinks per day Alcohol type: beer Patient Tobacco Use Status: Former Tobacco user Tobacco use type: Cigarette Years Smoked: 8 Second Hand Smoke Exposure: No Use of substances other than those prescribed or required for medical reasons: Yes Substance Use Type: Marijuana Are you DNR?: No Advance Directives: No Advance Directives Information Provided: Yes Advance Directives Date on File: 12/20/23 service: No Current occupational status: employed 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, 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 Meds Allergies Allergy/AdvReac Type Severity Reaction Status Date / Time No Known Allergies Allergy Verified 02/24/24 10:09 Home Medications ?Medication ?Instructions ?Recorded ?Confirmed ?Last Taken ?Type folic acid 1 mg tablet 1 mg PO DAILY 04/05/24 04/06/24 Unknown History thiamine HCl (vitamin B1) 100 mg 100 mg PO DAILY 04/05/24 04/06/24 Unknown History tablet Exam Airway Mallampati Class: II TM Dist: >3cm Neck ROM: Full Denture: Upper Partial: Lower Heart: irreg Lungs: cta Assessment and Plan Assessment Anesthesia Assessment: Anesthesia Plan Discussed Final Anesthetic Review NPO: Yes ASA Class: III Final Preanesthetic Review: No Changes in Pt Med Stat, Meds/Allgs Chart Reviewed and Consent Obtained/Reviewed Patient Risk: Intermediate Procedure Risk: Intermediate Anesthetic Plan Anesthetic Plan: MAC: Disposition: Standard PACU
--- NOTE | 2024-04-06 10:05 | PC.NURSE ---
0905 called pt at [phone] pt answered. told that arrival time was for 10am for procedure - pt states he is still in bed and hasn't been feeling well, this rn states perhaps the rreason is that he is in an irregular rhythm and needs this mare cardioversion done. 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 pt instructed to call an uber and then call back to short stay preop at [phone] (pt said he got something to write with and recited phone number back.
--- NOTE | 2024-04-06 10:38 | PC.NURSE ---
1033 this rn telephoned and spoke with pt- and made him aware of needing a ride home or someone with him in the uber or procedure will need to cancel speech clear and appropriate.. updated dr. kwong who states he needs to go into procedure by 11:30 or procedure needs to be cancelled. dr. priscilla urbina aware also.
--- NOTE | 2024-04-06 11:50 | PC.NURSE ---
late entry. dr. kwong needed to start case at 11:30, pt found ride here and back but could not arrive until 11:30. encouraged pt to call dr. kwong's office, given phone # reminded to have ride there and back and to take both elaquis and metoprolol faithfully and to reschedule, encouraged to not drink alcohol.
[2024-04-07 10:50] VITALS: BMI 24.8
[2024-04-07 10:58] VITALS: BP 121/87; PULSE 100; RESP 18; TEMP 36.6; O2SAT 100
[2024-04-07] MEDS: Lactated Ringers 1,000 ML 100 ML IVCONT (11:20)
--- NOTE | 2024-04-07 11:49 | CA_ITS ---
Transesophageal Echocardiogram Patient (Last, First, Middle): Warren Astudillo M Gender: Male Date of : 1960 Age: 64 Procedure Date: 04/07/2024 Procedure Type: Transesophageal Echocardiogram Location: OP Height: 182.88 cm Weight: 83.01 kg BSA: 2.05 m2 Heart Rate: 108 bpm BP: 113 / 78 mmHg Closing Coordinator: SB Referring MD: Meño Parker MD Symptoms: I48.91 - Unspecified atrial fibrillation Conclusion: ??? There is no evidence of a thrombus in the left atrial appendage. Findings Procedure Information Consent was obtained prior to the procedure. Pre GARY oral cavity was checked and revealed no overcrowding. The adult 3D probe was passed with no difficulty. Left Ventricle Normal left ventricular cavity size. The left ventricular systolic function is normal. The visually estimated ejection fraction is between 55-60%. Right Ventricle Normal right ventricular cavity size and systolic function. Atria There is no evidence of a thrombus in the left atrial appendage. There is no evidence of interatrial shunt by color Doppler. Aortic Valve There is a normal trileaflet aortic valve. There is no aortic valve stenosis. There is trace (trivial) aortic valve regurgitation. Mitral Valve There is mild anterior mitral leaflet prolapse and mild posterior mitral leaflet prolapse. There is mild mitral valve regurgitation. There is no mitral valve stenosis. Pulmonic Valve The pulmonic valve was not well visualized. Tricuspid Valve There is mild tricuspid valve regurgitation. Great Vessels The asc aorta is normal in size. Mild plaque in the visualized portion of descending thoracic aorta. Pericardium/Pleural There is a trivial pericardial effusion. Prior Study Comparison No significant change compared to prior study dated: 12/17/2023. Updated by Meño Parker on 10:31 AM with Status of Final Meño Parker MD electronically signed on 04/09/2024 10:31:44 AM with status of Final
--- NOTE | 2024-04-07 12:12 | MHC.SHP ---
Pre-Procedural Eval Section A - 24 Hr Update-Section A only Date of Service: 04/07/24 The patient is an INPATIENT: No Section B - Complete if H&P > 30 days Chief Complaint: Unspecified atrial fibrillation Details of Present Illness: Alcohol abuse- but none in 2 weeks per patient, atrial fibrillation with poorly controlled rates (better today). Dizziness. On high doses of beta blockers. Plan for GARY/CV. Relevant Family History (Specify if Yes): No Relevant Social History: Alcohol Use Present Medications: see Short Stay Collaborative assessment Medical History: No relevant PMH Allergies: Allergies Allergy/AdvReac Type Severity Reaction Status Date / Time No Known Allergies Allergy Verified 02/24/24 10:09 Review of Systems Review of Systems Comment: Feeling dizzyy, but otherwise 10system review, -ve. Exam Exam Comment: HEENT- normal Neck- normal Cardiac- in AFib, otherwise normal RS- normal Abd/Neuro- normal LE- no swelling Plan I have reviewed the history and physical and performed a pertinent physical examination on my patient. No changes have occurred unless specified. Due to compliance issues, GARY is being performed. Time Spent With Patient Time: Total time managing care of this patient today ____ minutes.
--- NOTE | 2024-04-07 12:15 | HO.CARDIVERS ---
Cardioversion Procedure Note Cardioversion Date of Procedure: 04/07/2024 Indication for Procedure: Atrial fibrillation with uncontrolled ventricular rate Pre-Op Diagnosis: Atrial fibrillation with uncontrolled ventricular rate Post-Op Diagnosis: Sinus rhythm Consent: Informed consent obtained. Procedure: After informed consent was obtained, patient was taken to the operating room. He was positioned appropriately. A transesophageal echocardiogram was initially performed. That showed no evidence of left atrial appendage thrombus. Subsequently, cardioversion performed with 150 joules of synchronized shock with pads in the anteroposterior position. He converted from atrial fibrillation to sinus rhythm. He remained in sinus rhythm at the end of procedure. Complications: None. Impression: Successful cardioversion from atrial fibrillation rapid rate to sinus rhythm. Recommendations: Decrease metoprolol to 50 mg b.i.d.. Start amiodarone. Continue Eliquis. Avoid alcohol. Discussed. Will arrange follow-up.
[2024-04-07 13:15] VITALS: BP 102/72; PULSE 59; RESP 16; TEMP 36.2; O2SAT 95
--- NOTE | 2024-04-07 13:16 | ECG_ITS ---
Test Reason : s/p cardioversion Blood Pressure : / mmHG Vent. Rate : 056 BPM Atrial Rate : 056 BPM P-R Int : 180 ms QRS Dur : 086 ms QT Int : 452 ms P-R-T Axes : 050 023 019 degrees QTc Int : 436 ms Sinus bradycardia Otherwise normal ECG When compared with ECG of 24-FEB-2024 10:11, Sinus rhythm has replaced Atrial fibrillation Vent. rate has decreased BY 70 BPM Referred By: Ynes Trent Electronically Signed By:YNES TRENT
[2024-04-07] MEDS: Amiodarone HCL 200 MG TABLET 400 MG PO (13:24)
[2024-04-07 13:30] VITALS: BP 111/74; PULSE 59; RESP 16; O2SAT 99
[2024-04-07 13:45] VITALS: BP 113/78; PULSE 56; RESP 16; TEMP 36.1; O2SAT 100
== END 2024-04-07 14:45 | disposition home or self-care (01) ==
PROVIDERS: Visit Provider Internal Medicine
PROC: (CPT 93312; principal; 2024-04-07 12:30)
PROC: 5A2204Z Restoration of Cardiac Rhythm, Single (ICD-10-PCS; CPT 92960; 2024-04-07 12:30)
DX: I48.91 Unspecified atrial fibrillation (principal); F10.90 Alcohol use, unspecified, uncomplicated; Z79.899 Other long term (current) drug therapy; Z91.148 Patient's other noncompliance with medication regimen for other reason
CPT/HCPCS: 92960; 93005; J2250; J2704

== ENCOUNTER → 2024-04-07 10:28 | Outpatient (BNV) | payer BC, SELFPAY | PROVIDERS: Visit Provider Internal Medicine | DX: I48.91 Unspecified atrial fibrillation (principal); I34.1 Nonrheumatic mitral (valve) prolapse; I34.0 Nonrheumatic mitral (valve) insufficiency | CPT/HCPCS: 76376; 92960; 93010; 93312; 93325 ==

== ENCOUNTER 2024-05-05 12:40 | Outpatient (AMB) | payer BC, SELFPAY ==
[2024-05-05 12:50] VITALS: BP 120/72; PULSE 69; BMI 23.9
--- NOTE | 2024-05-05 12:50 | A.OFFVIS_ITS ---
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 Accompanied by: Self / Same As Patient Allergies No Known Allergies Allergy (Verified 02/24/24 10:09) Medication List - Last Reconciled 05/05/24 by Zeinab Oliveros NP-C amiodarone 200 mg PO DAILY 90 days apixaban (Eliquis) 5 mg PO BID 90 days folic acid 1 mg PO DAILY metoprolol tartrate 50 mg PO BID 90 days thiamine HCl (vitamin B1) 100 mg PO DAILY HPI HPI 2 mth fu- wants back to work note: Details: Warren is a 64-year-old male with past medical history of alcohol use, syncope, persistent atrial fibrillation requiring GARY cardioversion and started on amiodarone, issues with med compliance who presents for follow-up. Today he reports he has been feeling well since his cardioversion on 04/07/2024. He has not had issues with dizziness, presyncope, syncope, falls. He is asking to go back to work but does tell me he is strongly considering on retiring. He has not been feeling heart palpitations in the last 3 weeks. He has no chest discomfort at rest or with activity. No shortness of breath, PND, orthopnea or edema. He says he is taking the Eliquis and metoprolol once daily. He is not taking amiodarone. 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 He has cut his drinking back to a few beers weekly. [facility], [facility] Medical History Anticoagulated Atrial fibrillation with rapid ventricular response Orthostatic hypotension Daily consumption of alcohol No pertinent past medical history Sciatica Surgical History History of umbilical hernia repair H/O right knee surgery Family History Brother History of open heart surgery Social History Household Members: None Housing: House Are you a primary client care specialist to a significant other at home: No Do you presently have visiting nurse or other home services: No Alcohol intake: current Alcohol intake frequency: 3 or more drinks per day Alcohol type: beer Patient Tobacco Use Status: Former Tobacco user Tobacco use type: Cigarette Years Smoked: 8 Second Hand Smoke Exposure: No Substance Use Type: Marijuana Advance Directives Date on File: 12/20/23 service: No Current occupational status: employed 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, 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 Review of Systems Const All systems reviewed & are unremarkable except as noted in HPI and below Denies chills, Denies fatigue, Denies fever(s), Denies frequent falls, Denies weakness, Denies weight gain and Denies weight loss ENT Denies dizziness Card Denies chest pain, Denies leg edema, Denies lightheadedness, Denies palpitations, Denies dyspnea and Denies dyspnea on exertion Resp Denies cough, Denies dyspnea and Denies dyspnea on exertion GI Denies hematochezia Musc Denies abnormal gait, Denies muscle weakness, Denies numbness, Denies radiating pain into limb and Denies tingling Neuro Denies abnormal gait, Denies dizziness, Denies frequent falls, Denies numbness, Denies tingling and Denies weakness Endo Denies fatigue and Denies palpitations Physical Exam Vital Signs: Last Vital Signs Pulse 69 05/05/24 12:50 BP 120/72 05/05/24 12:50 BMI result Body Mass Index 23.9 Const General: cooperative, healthy appearing, comfortable and no acute distress Orientation/consciousness: patient oriented x3 Neck Neck: Yes normal visual inspection and Yes no JVD Resp Effort & Inspection: normal respiratory effort Auscultation: clear to auscultation bilaterally, no rales, no rhonchi and no wheezes Cardio Jugular venous distension: no JVD Rate: regular rate Rhythm: regular rhythm Heart sounds: S1 normal heart sound present, S2 normal heart sound present, no murmurs and no rubs Neuro General: patient oriented x3 Extrem General: Yes normal to inspection and No no pedal edema Psych Appearance: grossly normal Mental Status: mental status grossly normal Speech and movement: Normal speech and movement present Office Procedures EKG Details: Today, read by me, normal sinus rhythm, T-wave abnormality, lead 3 and AVF, unchanged from prior, rate 69, QTC 426 milliseconds [id number], Complete Assessment & Plan Assessment & Plan (1) New onset a-fib: Code(s): I48.91 - Unspecified atrial fibrillation Category: Medical Plan: Newer finding of atrial fibrillation when presented to the ER in Dec 2023 with multiple complaints including fatigue and malaise, GI symptoms. He was treated with heart rate control using metoprolol. He was started on Eliquis for anticoagulation. He does drink alcohol daily, currently admitting to 3-4 beers. No bleeding issues reported. Echocardiogram showed EF 50-55%, left atrium moderately dilated, normal valves. On follow-up visit he had no concerning symptoms. Days later he was admitted to [facility] following a syncopal event. He was noted to have AFib RVR and was treated with meds for rate control. An outpatient GARY cardioversion was done on 04/07/2024 showing EF 55-60%, no thrombus. Cardioversion was successful in achieving sinus rhythm. He was put on amiodarone to help maintain rhythm control. EKG done today showing normal sinus rhythm, T-wave abnormality lead 3 and AVF, unchanged from prior, rate 69. Today he reports no recurrent heart palpitations or episodes of dizziness or syncope. He tells me he is only taking Eliquis and metoprolol only once daily. His metoprolol is ordered as b.i.d.. He says he is not taking amiodarone. His reason is he can not afford his medications. 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 Spent time reviewing the importance of strict med compliance and that not taking meds as directed can lead to recurrent AFib, Congestive heart failure, stroke, hospitalization, possible . He states understanding. Will send referral to the nurse navigator to see if there is any programs that can help him achieve his medications at even lower cost. Recommend he take metoprolol as ordered, 50 mg b.i.d., take Eliquis as ordered 5 mg b.i.d., restart amiodarone 200 mg daily. Reviewed the Diagnosis of atrial fibrillation, stroke risk with AFib and need for med management reviewed with him. Cardiology office visit 3 months, sooner if needed 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.01 - FPC (current) use of anticoagulants Category: Medical Plan: As above (3) Daily consumption of alcohol: Comment: 3-4 Beers Code(s): Z78.9 - Other specified health status Category: Social Hx Plan: As above- he now states he is drinking only a few beers each week Plan Time spent on chart review, documentation, interview and assessment Orders: Referrals Nurse Navigator Referral I48.91 - Unspecified atrial fibrillation, Z91.199 - Patient's noncompliance with other medical treatment and regimen due to unspecified reason Coding Level of Care Code Est Pt Level 4 (02113) Diagnoses New onset a-fib I48.91 Anticoagulated Z79.01 Daily consumption of alcohol Z78.9 CPT Codes EKG - CPT: 93375-[id number], Complete ([id number]) Time Spent (min) 28
== END 2024-05-05 13:18 | disposition home or self-care (01) ==
PROVIDERS: Visit Provider Nurse Practitioner Family
DX: I48.91 Unspecified atrial fibrillation (principal); Z79.01 Long term (current) use of anticoagulants; Z78.9 Other specified health status
CPT/HCPCS: 93010; 99214

== ENCOUNTER → 2024-05-05 12:40 | Outpatient (BNVA) | payer BC, SELFPAY | PROVIDERS: Visit Provider Nurse Practitioner Family | DX: I48.91 Unspecified atrial fibrillation (principal); F10.90 Alcohol use, unspecified, uncomplicated; Z79.01 Long term (current) use of anticoagulants | CPT/HCPCS: 93005 ==